=== PATIENT | female | born 1965 | race Caucasian/White ===

== ENCOUNTER 2016-11-22 16:26 | Inpatient (IN) | payer OTHER ==
[~2016-11-22] VITALS: Ht 154.9 cm; Wt 54.4 kg
--- NOTE | ~2016-11-22 | PROC NOTE ---
[place], [place] PROCEDURE NOTE NAME: PETE PASCUAL UNIT #: [id number] ROOM: 520 DOCTOR: POOJA VALDEZ MD,LUMA BIRTHDATE: [birth year] DOS: 11/23/2016 PREOPERATIVE DIAGNOSES: The patient with persistent severe nonproductive cough, wheezing and shortness of breath with exacerbation of chronic obstructive pulmonary disease, maximum medical therapy. POSTOPERATIVE DIAGNOSES: Severe tracheobronchitis for the patient noted with findings of very severe impaction of the mucus plugs for patient in endobronchial tree subsegments bilaterally. PROCEDURE DESCRIPTION: Informed consent obtained for the patient. The patient brought to the OR and placed in supine position. Conscious sedation administered by the Anesthesia Department. After achieving appropriate sedation, airway introduced into the mouth. Bronchoscope advanced into the airway into laryngeal area. Epiglottis and vocal cords were seen. Bronchoscope advanced to the vocal cord and tracheal lumen. Tracheal lumen was identified and noted with moderate amount of very thick yellowish mucus of the patient with small purulent secretions, suctioned out to the kacey level. The patient noted with thick mucus plugs for patient of similar consistency patient noted in the tracheal lumen, the patient in right upper, right middle, right lower, left upper, left lingula and lower lobe bronchi. All secretions suctioned out clear with the help of normal saline wash and sent for culture. Procedure was tolerated by the patient without any complications. Postoperative findings will be discussed with the patient once the patient recovers the effects of acute sedation. LUMA PATTON MD CM:PROCNOTE:PROCEDURE NOTE [id number] LUMA VALDEZ MD
--- NOTE | ~2016-11-22 | CON ---
[place], [place] REPORT OF CONSULTATION NAME: [id number] UNIT #: [id number] ROOM: 520 DOCTOR: AGUS ZHOU ED.D (ANNALISA) BIRTHDATE: [birth year] DOS: 11/23/2016 HISTORY OF PRESENT ILLNESS: The patient is a 51-year-old female referred by the hospitalist for an evaluation of her depression. At the present time, this patient is on the 5th floor at [facility]. She states that she is , having in 2012, and she does have 1 son. She is presently employed at the [employer] in [place], [place]. She does follow at the [facility] in [place], [place], and also with Dr. Gonsales. MEDICAL HISTORY: Pertinent for COPD, hypertension, and depression. HOME MEDICATIONS: Include Zyrtec, Avidoxy, Advair, Claritin, Ativan, Singulair, prednisone, and Spiriva. SOCIAL HISTORY: She does admit to smoking one-half to one pack of cigarettes each day. Otherwise, she has no significant substance abuse issues. She was awake, alert and oriented in all 3 spheres, but appeared to be quite depressed. She states she have been very depressed since the of her brother following the complications most likely of liver disease from his alcoholism. She is also depressed about her divorce and her mother having . I suggested she consider antidepressant medications, but she refused stating that she would rather just go to a counselor. They do have a counselor at the [facility] in [place] and she will follow up there once she is discharged. DIAGNOSIS: Major depressive disorder. RECOMMENDATIONS: The patient to follow up at [facility] for outpatient counseling. Thank you very much for this consult. AGUS ZHOU ED.D CM:CONSTR:REPORT OF CONSULTATION 1004 11/23/16 1424 interface
--- NOTE | ~2016-11-22 | CON ---
[place], [place] REPORT OF CONSULTATION NAME: PETE PASCUAL [facility] #: [id number] UNIT #: [id number] ROOM: 520 DOCTOR: LUMA HER MD BIRTHDATE: [birth year] DOS: 11/23/2016 PULMONARY CONSULTATION EVALUATION AND MANAGEMENT REASON FOR CONSULTATION: For assessment of ongoing symptoms of shortness of breath and others. HISTORY OF PRESENT ILLNESS: This is a 51-year-old female, well known to me with past history of severe COPD. The patient with recurrent frequent exacerbation of chronic nicotine dependence. The patient presented to the office yesterday as the patient has reported significant increased symptoms of shortness of breath with chest congestion, tightness in the chest and wheezing. She was also noted with general weakness and fatigue. She was also noted with exertional hypoxia in the office with oxygen saturation of 84%-86%. Upon arrival in the Emergency Room and resting improved only to 91% saturation of oxygen. She has been started with acute exacerbation of COPD in 09/2016, which has been treated with corticosteroids. Later on, she has been seen several times by the primary care physician and started on high dose of prednisone up to 60 mg for several days, then 40, 30 and 20 mg. She was seen again by the primary care physician and was recommended to use the prednisone as 40 mg daily. The patient stated that she has not been responding to the treatment and noted with continued persistent respiratory symptoms with increased worsening recently as well. The cough has been described moderate to severe, nonproductive. The wheezing of the patient is occurring with minimal exertion and at rest as well. REVIEW OF SYSTEMS: CONSTITUTIONAL: She does complain of symptoms of fatigue and tiredness which is noted without any symptoms of fever or chills. EYES: Denies any burning, redness, or tenderness. EARS, NOSE, THROAT SYMPTOMS: No sore throat, hoarseness, or otalgia, postnasal drainage. CARDIOVASCULAR: Denies anginal pain, edema or pain of the lower extremities. GASTROINTESTINAL: Denies dysphagia, nausea, vomiting, diarrhea, abdominal pain, hematemesis, melena, or hematochezia. SKIN: No lesions or rashes. GENITOURINARY: Denies dysuria, suprapubic pain, or hematuria. CENTRAL NERVOUS SYSTEM: Denies dizziness, headache or diplopia. Remaining systems were reviewed with the patient, they were noted all negative. PAST MEDICAL HISTORY: Noted: 1. Severe centrilobular emphysema. 2. Allergic rhinitis. 3. Essential hypertension. 4. History of general anxiety and depression. PAST SURGICAL HISTORY: 1. . 2. Rhinoplasty. 3. Fiberoptic bronchoscopy in 2013. [place], [place] REPORT OF CONSULTATION NAME: PETE PASCUAL UNIT #: [id number] ROOM: [facility] DOCTOR: LUMA HER MD BIRTHDATE: [birth year] SOCIAL HISTORY: The patient is , has 1 child. She lives at home. Denies history of alcohol or illicit drug use. Tobacco use was noted 16 years old between half to a pack of cigarettes per day active use. There was no history of occupation related pulmonary exposure. FAMILY HISTORY: Father at the age of 65 years complication of COPD. Mother at the age of 70+ years, complication related to the congestive heart failure. HOME MEDICATIONS: For the patient which has been used were noted as: 1. Recent use of prednisone 40 mg daily. 2. Singulair 10 mg daily. 3. Spiriva 18 mcg inhalation daily. 4. Advair 250/50 one inhalation daily. 5. ProAir HFA inhaler p.r.n. use. 6. Hydroxyzine 25 mg t.i.d. p.r.n. for itching. 7. Previous use of the Norvasc as well, which has been discontinued by the primary care physician recently. DRUG ALLERGIES: Noted: 1. AMOXICILLIN. 2. AZITHROMYCIN. 3. BACTRIM. 4. SYMBICORT. 5. FORADIL. PHYSICAL EXAMINATION: GENERAL: This is a 51-year-old white female who has been currently noted sitting on the bed without any acute distress. Height of the patient recorded 5 feet 1 inch, weight of 120 pounds, BMI 22.6. VITAL SIGNS: Shows temperature of the patient was noted as normal. The respiratory rate of the patient recorded as 20-22, heart rate noted 130 with sinus tachycardia in the office and this morning noted 93 beats per minute. Blood pressure noted elevated yesterday at 170/98, this morning noted 152/88. Intake for this patient 240 mL, output 700 mL in the last 24 hours. Pulse oxygen saturation on 2 liters nasal cannula 94% saturation. HEENT: Head was atraumatic. Eyes nonicterus. NECK: Supple. CARDIOVASCULAR: S1, S2 audible. LUNGS: The patient was noted without any crackles. Diffuse expiratory wheezing noted with reduced breath sounds bilaterally. ABDOMEN: Soft, nontender, bowel sounds present. CENTRAL NERVOUS SYSTEM: For the patient was noted cranial nerves 2-12 intact. No focal deficits. MUSCULOSKELETAL: Does not show any acute deformities. LABORATORY DATA: Lactic acid yesterday was noted normal on admission. CBC of the patient was noted as WBC count normal, hemoglobin 15.8, hematocrit 47.1, platelet count was normal. PT/PTT of patient was noted as normal yesterday. [place], [place] REPORT OF CONSULTATION NAME: PETE PASCUAL UNIT #: [id number] ROOM: [facility] DOCTOR: LUMA HER MD BIRTHDATE: [birth year] CMP that was done yesterday was noted as normal CMP for this patient. Chest x-ray of the patient was noted with hyperinflation changes without any acute pulmonary infiltration or other abnormalities 1 view as well. The troponin for the patient was noted normal yesterday and this morning. BMP this morning was noted as normal today. CBC this morning still noted as normal. IMPRESSION: 1. The patient who has been currently admitted to the hospital noted with acute hypoxic respiratory failure with failed outpatient treatment, progressive worsening of the acute exacerbation of chronic obstructive pulmonary disease, treated with antibiotics, bronchodilators and steroids for the last several weeks. 2. History of allergic rhinitis. 3. Uncontrolled hypertension. The patient has been taken off the hypertension medications by the primary care attending recently. 4. Tachycardia secondary to acute exacerbation of chronic obstructive pulmonary disease for this patient has been noted with gradual reduction in the last 24 hours. 5. Uncontrolled hypertension was still noted persistent. 6. History of chronic nicotine dependence and noncompliance as well. 7. Suspected mucous impaction of the major airways of the patient which has been also resulting in nonresolution of the current acute symptoms. PLAN OF TREATMENT: The patient will be started on the Norvasc 5 mg again from today. Continue her previous home medications as taken for this patient. She was started on Solu-Medrol 60 mg every 8 hours that will be continued. The DuoNeb has been ordered. Antibiotics, Levaquin should suffice. Bronchoscopy was planned for the patient to be done in the morning. Ordered the nicotine replacement patches as well for this patient to overcome the nicotine withdrawal as well. Anxiolytics for the patient will be used as well. Other supportive therapy, plan of management to be done for this patient as well. Further changes and modification treatment done based on progression of the illness. All other supportive plan and management and care. Usual medical management and plan of therapy. The risks and benefits of bronchoscopy were discussed with the patient in detail and she was agreeable for the procedure. Thanks for allowing me to participate in the care of this patient. LUMA PATTON MD CM:CONSTR:REPORT OF CONSULTATION 1142 11/24/16 0021 interface
--- NOTE | ~2016-11-22 | PR ---
[place], [place] PROGRESS NOTE NAME: PETE PASCUAL UNIT #: [id number] ROOM: [facility] DOCTOR: POOJA VALDEZ MD,LUMA BIRTHDATE: [birth year] DOS: 11/23/2016 SUBJECTIVE: She was ____ DICTATION ENDED ABRUPTLY LUMA PATTON MD CM:PNTRANS [id number] LUMA VALDEZ MD 11/23/16 1151 interface
--- NOTE | ~2016-11-22 | PR ---
[place], [place] PROGRESS NOTE [id number] UNIT #: [id number] ROOM: 520 DOCTOR: POOJA VALDEZ MD,LUMA BIRTHDATE: [birth year] DOS: 11/26/2016 SUBJECTIVE: The patient was seen and examined on 11/26/2016. Shortness of breath of the patient has been improving. Coughing has been noted with the sputum expectoration. Denies symptoms of chest pain. Shortness of breath and wheezing was decreasing. The tachycardia was also resolving. OBJECTIVE: VITAL SIGNS: Normal temperature, respiratory rate 20, heart rate 110, blood pressure 150/84, 164/91. Pulse oxygen saturation noted as 92% for this patient on 2 L nasal cannula. HEENT: Examination shows no new change. NECK: Supple. CARDIOVASCULAR: S1, S2 is audible. LUNGS: Noted with decreased breath sounds noted in the lungs bilaterally. The wheezing for this patient was present still at the present time but gradual reduction has been noted. IMPRESSION: 1. Anxiety disorder. 2. Resolving tachycardia gradually as the improvement noted in the respiratory status. 3. The patient with essential hypertension for the patient, which has also noted partially uncontrolled. PLAN OF TREATMENT: Continuation of the oxygen supplementation, bronchodilators. Changing the Norvasc to 10 mg daily dosing. Ordered the TSH level of the patient to assess for any thyroid problems resulting in tachycardia. Other supportive plan and management and care. Usual treatment. Further treatment changes will be done based on the progression of the illness. LUMA PATTON MD CM:PNTRANS [id number] [id number] LUMA VALDEZ MD 11/26/16 2353 interface
--- NOTE | ~2016-11-22 | PR ---
[place], [place] PROGRESS NOTE NAME: PETE PASCUAL UNIT #: [id number] ROOM: 520 DOCTOR: LUMA HER MD BIRTHDATE: [birth year] DOS: 11/24/2016 SUBJECTIVE: The patient has been noted n.p.o. past midnight. Bronchoscopy planned for today. The patient denies symptoms of chest pain, coughing, wheezing. The patient remains about the same. Shortness of breath on the patient was noted partially decreased. There were symptoms of abdominal pain. OBJECTIVE: VITAL SIGNS: For the patient, which has been recorded showed the temperature for the patient recorded as normal, respiratory 20, heart rate 103, blood pressure is 141/93 and 131/85. HEENT: Examination shows no new change. NECK: Supple. CARDIOVASCULAR SYSTEM: S1, S2 audible. LUNGS: Noted without any crackles. Expiratory wheezing noted diffusely in the lungs. ABDOMEN: Soft, nontender. LABORATORY DATA: Blood culture from the this month shows no bacterial growth. IMPRESSION: 1. Persistent acute exacerbation of chronic obstructive pulmonary disease, acute tracheobronchitis, history of allergic rhinitis, essential hypertension, which the patient also noted is uncontrolled for the patient, currently improving. 2. Sinus tachycardia has been noted intermittently secondary to underlying chronic obstructive pulmonary disease exacerbation. 3. History of nicotine dependence. PLAN OF TREATMENT: Continuation of the current plan of management at this time. Proceed with bronchoscopy. The patient had bronchoscopy for any changes in the treatment and will be ordered accordingly. In the meantime, other previous treatment to be continued. Usual care. Other supportive plan of therapy and management. [place], [place] PROGRESS NOTE NAME: PETE PASCUAL UNIT #: [id number] ROOM: 520 DOCTOR: LUMA HER MD BIRTHDATE: [birth year] LUMA PATTON MD CM:PNTRANS 0939 1002 LUMA VALDEZ MD 11/24/16 1002 interface
--- NOTE | ~2016-11-22 | PR ---
[place], [place] PROGRESS NOTE NAME: PETE PASCUAL UNIT #: [id number] ROOM: 520 DOCTOR: LUMA HER MD BIRTHDATE: [birth year] DOS: 11/25/2016 SUBJECTIVE: Bronchoscopy done yesterday of the patient with reduction in symptoms of coughing and wheezing. She was still noted symptoms of wheezing. The patient has chest tightness. She denies symptoms of chest pain. She has been noted quite shortness of breath. The patient with mild exertion still at this time. The tachycardia of the patient has been improving gradually. OBJECTIVE: VITAL SIGNS: Normal temperature, respiratory rate 20, heart rate of 110-96, blood pressure 105/88-140/90. Pulse oxygen saturation of the patient recorded on 3 liter nasal cannula 93% saturation. HEENT: Showed no new change. NECK: Supple. CARDIOVASCULAR: S1, S2 audible. LUNGS: The patient was noted general reduction in the breath sounds in the lungs bilaterally. Wheezing was present. The wheezing was noted decreased from previous examination. ABDOMEN: Soft, nontender. LABORATORY DATA: CBC of the patient this morning on 11/25/2016, WBC count 12.3, hemoglobin and hematocrit normal, platelet count were normal. CMP of the patient this morning noted normal BUN and creatinine of the patient, carbon dioxide 37. The Gram stain of the bronchial washings yesterday shows many white blood cells with moderate epithelial cells, few Gram-positive cocci in pairs ____ Gram-positive bacilli, normal ____. Culture results were pending. IMPRESSION: The patient with acute exacerbation of chronic obstructive pulmonary disease, acute tracheobronchitis, resolving tachycardia ____ exacerbation of chronic obstructive pulmonary disease gradually improving, uncontrolled hypertension as well. Respiratory symptom has been noted gradual reduction. PLAN OF TREATMENT: Continuation of current dose of corticosteroids, bronchodilators, oxygen supplementation, reduction of the corticosteroids will be started from tomorrow morning. Other supportive plan and management to be continued. Usual care. [place], [place] PROGRESS NOTE NAME: PETE PASCUAL UNIT #: [id number] ROOM: 520 DOCTOR: LUMA HER MD BIRTHDATE: [birth year] LUMA PATTON MD CM:PNTRANS [id number] LUMA VALDEZ MD 11/27/16 0114 interface
--- NOTE | ~2016-11-22 | PR ---
[place], [place] PROGRESS NOTE [id number] UNIT #: [id number] ROOM: 520 DOCTOR: POOJA VALDEZ MD,LUMA BIRTHDATE: [birth year] DOS: 11/27/2016 PULMONARY FOLLOWUP NOTE SUBJECTIVE: The patient today's assessment is 11/27/2016. She has been noted without any acute distress at this time. The coughing has been subsiding. Shortness of breath and wheezing was also resolving. There were no symptoms of chest pain. The tachycardia was also improving gradually. OBJECTIVE: VITAL SIGNS: Normal temperature, respiratory rate 20, heart rate 103, blood pressure 152/90. Intake of the patient was 1700, output 2250 mL. Pulse oxygen saturation on room air 92% saturation. HEENT: Examination shows no new change. NECK: Supple. CARDIOVASCULAR: S1, S2 audible. LUNGS: Scattered wheezing, no crackles. ABDOMEN: Soft, nontender. LABORATORY DATA: BMP, carbon dioxide 36. Remaining BMP is grossly normal. CBC of the patient noted as normal. IMPRESSION: 1. Gradual reduction and resolution of acute exacerbation of chronic obstructive pulmonary disease, acute tracheobronchitis as well as acute hypoxic respiratory failure as well. 2. History of nicotine dependence. 3. Improving essential hypertension. PLAN OF TREATMENT: No changes in the plan of management at this time. Continue current therapy plan and management. Other usual care and plan of therapies. Usual medical management. LUMA PATTON MD CM:PNTRANS [id number] 1412 LUMA VALDEZ MD 11/27/16 2106 interface
[~2016-11-22 16:26] MED LIST: ADVAIR 250/501 EA INH; AMLODIPINE10 MG PO; ATIVAN0.5 MG PO; AVIDOXY100 MG PO; CHANTIX; CLARITIN-D 10 M1 T21; DELTASONE10 MG PO; DOXYCYCLINE100 M3 PO; HYDR12.5C PO; LEVOFLOXACIN500 MG PO; MEDROL DOSEPAK4 MG PO; NICODERM21 MG/24 H TD; ORASONE PO; ORASONE10 MG PO; SINGULAIR10 MG; SPIRIVA18 MCG INH
[2016-11-22 17:00] VITALS: BP 170/98
[2016-11-22] MEDS ORDERED: PREDNISONE10 MG PO (17:24)
[2016-11-22] MEDS ORDERED: CLARITIN10 MG PO (17:25)
[2016-11-22] MEDS ORDERED: ATIVAN0.5 MG PO (17:26)
[2016-11-22] MEDS ORDERED: ZYRTEC10 MG PO (17:26)
[2016-11-22 19:41] LABS: BASO % 0.3 % (0.0-1.0); EOS % 0.1 % (1.0-4.0); HEMATOCRIT 47.1 % (37.0-47.0); HEMOGLOBIN 15.8 g/dl (12.0-16.0); LYMPH % 22.1 % (27.0-41.0); MEAN CELL VOLUME 90.1 fl (81.0-99.0); MEAN CORPUSCULAR HGB 30.2 pg (27.0-31.0); MEAN CORPUSCULAR HGB CONC 33.5 g/dl (33.0-37.0); MEAN PLATELET VOLUME 10.7 fl (9.6-12.3); MONO # 1.1 10*3/uL (0.1-1.0); MONO % 12.2 % (3.0-9.0); NEUT # 5.7 10*3/uL (2.3-7.9); PLATELET COUNT AUTOMATED 231 10*3/uL (130-400); RED BLOOD COUNT 5.23 10*6/uL (4.10-5.10); RED CELL DISTRI WIDTH 13.6 % (0-14.5); WHITE BLOOD COUNT 8.8 10*3/uL (4.8-10.8)
[2016-11-22 19:56] LABS: INTERNATIONAL NORM RATIO 0.9 (2.0-3.5)
[2016-11-22 20:00] VITALS: BP 155/80; BP 169/98
[2016-11-22 20:03] LABS: ALBUMIN 3.9 gm/dl (3.1-4.5); ALKALINE PHOSPHATASE 60 U/L (45-117); BILIRUBIN, TOTAL 0.4 mg/dl (0.2-1.0); BUN 7 mg/dl (7-24); CARBON DIOXIDE 31 mmol/L (21-32); CHLORIDE 105 mmol/L (98-107); EST GLOM FILT AFRICAN AMERICAN > 60 ml/min; GLUCOSE 91 mg/dL (65-99); MAGNESIUM 2.3 mg/dL (1.5-2.1); PHOSPHOROUS 3.4 mg/dL (2.5-4.9); POTASSIUM 3.9 mmol/L (3.5-5.1); SGOT/AST 10 IU/L (3-35); SGPT/ALT 24 U/L (12-78); SODIUM 145 mmol/L (136-145); TOTAL PROTEIN 7.2 gm/dL (6.4-8.2)
[2016-11-22 20:07] LABS: TROPONIN I < 0.015 ng/ml (<0.045)
[2016-11-23] VITALS: BP 145/86
[2016-11-23 04:00] VITALS: BP 149/87
[2016-11-23 05:55] LABS: BUN 11 mg/dl (7-24); CARBON DIOXIDE 31 mmol/L (21-32); CHLORIDE 106 mmol/L (98-107); CHOLESTEROL 176 mg/dL (<200); EST GLOM FILT AFRICAN AMERICAN > 60 ml/min; GLUCOSE 113 mg/dL (65-99); HDL CHOLESTEROL 109 mg/dl (40-60); LDL CHOLESTEROL 57 mg/dL (9-159); POTASSIUM 4.5 mmol/L (3.5-5.1); SODIUM 144 mmol/L (136-145); TRIGLYCERIDES 51 mg/dl (<150); VLDL CHOLESTEROL 10 mg/dL (6-40)
[2016-11-23 05:57] LABS: TROPONIN I < 0.015 ng/ml (<0.045)
[2016-11-23 06:01] LABS: HEMOGLOBIN A1c 5.8 % (4.8-5.6)
[2016-11-23 06:18] LABS: BASO % 0.2 % (0.0-1.0); HEMATOCRIT 45.3 % (37.0-47.0); HEMOGLOBIN 14.4 g/dl (12.0-16.0); IG # 0.1 10*3/uL (0.0-0.1); LYMPH # 0.5 10*3/uL (1.3-4.4); MEAN CELL VOLUME 92.8 fl (81.0-99.0); MEAN CORPUSCULAR HGB 29.5 pg (27.0-31.0); MEAN CORPUSCULAR HGB CONC 31.8 g/dl (33.0-37.0); MEAN PLATELET VOLUME 10.5 fl (9.6-12.3); MONO # 0.3 10*3/uL (0.1-1.0); MONO % 4.2 % (3.0-9.0); NEUT # 5.8 10*3/uL (2.3-7.9); NEUT % 86.8 % (47.0-73.0); PLATELET COUNT AUTOMATED 207 10*3/uL (130-400); RED BLOOD COUNT 4.88 10*6/uL (4.10-5.10); RED CELL DISTRI WIDTH 13.5 % (0-14.5); WHITE BLOOD COUNT 6.6 10*3/uL (4.8-10.8)
[2016-11-23 06:52] LABS: FOLIC ACID 18.81 ng/mL (>5.38); VITAMIN D, 25-HYDROXY 10.1 ng/mL (30-100)
[2016-11-23 08:00] VITALS: BP 152/88
[2016-11-23 12:00] VITALS: BP 153/84
[2016-11-23 16:00] VITALS: BP 132/88
[2016-11-23 20:00] VITALS: BP 150/98
[2016-11-24] VITALS (13 sets, daily range): BP systolic 114–194; BP diastolic 78–118
[2016-11-25] VITALS: BP 140/90
[2016-11-25 07:19] LABS: BASO % 0.1 % (0.0-1.0); HEMATOCRIT 42.6 % (37.0-47.0); HEMOGLOBIN 14.3 g/dl (12.0-16.0); IG # 0.1 10*3/uL (0.0-0.1); LYMPH % 8.1 % (27.0-41.0); MEAN CELL VOLUME 89.7 fl (81.0-99.0); MEAN CORPUSCULAR HGB 30.1 pg (27.0-31.0); MEAN CORPUSCULAR HGB CONC 33.6 g/dl (33.0-37.0); MEAN PLATELET VOLUME 10.1 fl (9.6-12.3); MONO # 0.4 10*3/uL (0.1-1.0); MONO % 3.3 % (3.0-9.0); NEUT # 10.8 10*3/uL (2.3-7.9); NEUT % 87.8 % (47.0-73.0); PLATELET COUNT AUTOMATED 205 10*3/uL (130-400); RED BLOOD COUNT 4.75 10*6/uL (4.10-5.10); RED CELL DISTRI WIDTH 13.2 % (0-14.5); WHITE BLOOD COUNT 12.3 10*3/uL (4.8-10.8)
[2016-11-25 07:47] LABS: ALBUMIN 3.4 gm/dl (3.1-4.5); ALKALINE PHOSPHATASE 47 U/L (45-117); BILIRUBIN, TOTAL 0.4 mg/dl (0.2-1.0); BUN 17 mg/dl (7-24); CARBON DIOXIDE 37 mmol/L (21-32); CHLORIDE 101 mmol/L (98-107); EST GLOM FILT AFRICAN AMERICAN > 60 ml/min; GLUCOSE 117 mg/dL (65-99); POTASSIUM 4.2 mmol/L (3.5-5.1); SGOT/AST 8 IU/L (3-35); SGPT/ALT 24 U/L (12-78); SODIUM 144 mmol/L (136-145)
[2016-11-25 08:00] VITALS: BP 150/88
[2016-11-25 12:00] VITALS: BP 148/96
[2016-11-25 12:09] LABS: ACID FAST SPEC PROCESSING Concentration (.)
[2016-11-25 14:00] VITALS: BP 148/96
[2016-11-25 20:00] VITALS: BP 162/94
[2016-11-26] VITALS: BP 152/88
[2016-11-26 06:15] LABS: HEMATOCRIT 41.9 % (37.0-47.0); HEMOGLOBIN 14.3 g/dl (12.0-16.0); IG # 0.1 10*3/uL (0.0-0.1); LYMPH % 10.6 % (27.0-41.0); MEAN CELL VOLUME 90.1 fl (81.0-99.0); MEAN CORPUSCULAR HGB 30.8 pg (27.0-31.0); MEAN CORPUSCULAR HGB CONC 34.1 g/dl (33.0-37.0); MEAN PLATELET VOLUME 10.1 fl (9.6-12.3); MONO # 0.4 10*3/uL (0.1-1.0); MONO % 4.5 % (3.0-9.0); NEUT # 7.6 10*3/uL (2.3-7.9); NEUT % 84.2 % (47.0-73.0); PLATELET COUNT AUTOMATED 189 10*3/uL (130-400); RED BLOOD COUNT 4.65 10*6/uL (4.10-5.10); RED CELL DISTRI WIDTH 13.2 % (0-14.5)
[2016-11-26 06:39] LABS: BUN 19 mg/dl (7-24); CARBON DIOXIDE 37 mmol/L (21-32); CHLORIDE 100 mmol/L (98-107); EST GLOM FILT AFRICAN AMERICAN > 60 ml/min; GLUCOSE 115 mg/dL (65-99); POTASSIUM 4.2 mmol/L (3.5-5.1); SODIUM 143 mmol/L (136-145)
[2016-11-26 08:00] VITALS: BP 164/91
[2016-11-26 12:00] VITALS: BP 150/84
[2016-11-26 16:00] VITALS: BP 152/90
[2016-11-26 20:00] VITALS: BP 152/84
[2016-11-27] VITALS: BP 152/88
[2016-11-27 06:27] LABS: BASO % 0.1 % (0.0-1.0); HEMOGLOBIN 14.3 g/dl (12.0-16.0); IG # 0.1 10*3/uL (0.0-0.1); LYMPH % 10.2 % (27.0-41.0); MEAN CELL VOLUME 91.3 fl (81.0-99.0); MEAN CORPUSCULAR HGB 30.4 pg (27.0-31.0); MEAN CORPUSCULAR HGB CONC 33.3 g/dl (33.0-37.0); MEAN PLATELET VOLUME 10.4 fl (9.6-12.3); MONO # 0.6 10*3/uL (0.1-1.0); MONO % 6.1 % (3.0-9.0); NEUT # 7.8 10*3/uL (2.3-7.9); PLATELET COUNT AUTOMATED 201 10*3/uL (130-400); RED BLOOD COUNT 4.71 10*6/uL (4.10-5.10); RED CELL DISTRI WIDTH 12.8 % (0-14.5); WHITE BLOOD COUNT 9.4 10*3/uL (4.8-10.8)
[2016-11-27 06:58] LABS: BUN 17 mg/dl (7-24); CARBON DIOXIDE 36 mmol/L (21-32); CHLORIDE 101 mmol/L (98-107); EST GLOM FILT AFRICAN AMERICAN > 60 ml/min; GLUCOSE 121 mg/dL (65-99); POTASSIUM 4.1 mmol/L (3.5-5.1); SODIUM 143 mmol/L (136-145)
[2016-11-27 07:04] LABS: THYROID STIM HORMONE (HS) 0.922 uIU/ml (0.358-4.75)
[2016-11-27 08:00] VITALS: BP 152/90
[2016-11-27] MEDS ORDERED: LEVAQUIN500 M2 PO (10:32)
[2016-11-27] MEDS ORDERED: D-1000 185 MG-11 TAB PO (10:32)
== END 2016-11-27 14:24 | disposition home or self-care (01) | DRG 871 ==
LOC: 5E 16:26
PROVIDERS: Hospitalist; Internal Medicine; Internal Medicine Critical Care Medicine
PROC: 0BC48ZZ Extirpation of Matter from Right Upper Lobe Bronchus, Via Natural or Artificial Opening Endoscopic (ICD-10-PCS; principal; 2016-11-24)
PROC: 0BC58ZZ Extirpation of Matter from Right Middle Lobe Bronchus, Via Natural or Artificial Opening Endoscopic (ICD-10-PCS; principal; 2016-11-24)
PROC: 0BC78ZZ Extirpation of Matter from Left Main Bronchus, Via Natural or Artificial Opening Endoscopic (ICD-10-PCS; principal; 2016-11-24)
PROC: 0BC68ZZ Extirpation of Matter from Right Lower Lobe Bronchus, Via Natural or Artificial Opening Endoscopic (ICD-10-PCS; principal; 2016-11-24)
PROC: 0BCB8ZZ Extirpation of Matter from Left Lower Lobe Bronchus, Via Natural or Artificial Opening Endoscopic (ICD-10-PCS; principal; 2016-11-24)
PROC: 0BC18ZZ Extirpation of Matter from Trachea, Via Natural or Artificial Opening Endoscopic (ICD-10-PCS; principal; 2016-11-24)
PROC: 0BC38ZZ Extirpation of Matter from Right Main Bronchus, Via Natural or Artificial Opening Endoscopic (ICD-10-PCS; principal; 2016-11-24)
PROC: 0BC88ZZ Extirpation of Matter from Left Upper Lobe Bronchus, Via Natural or Artificial Opening Endoscopic (ICD-10-PCS; principal; 2016-11-24)
PROC: 0BC98ZZ Extirpation of Matter from Lingula Bronchus, Via Natural or Artificial Opening Endoscopic (ICD-10-PCS; principal; 2016-11-24)
DX: A41.9 Sepsis, unspecified organism (principal); J18.9 Pneumonia, unspecified organism; J96.01 Acute respiratory failure with hypoxia; J44.1 Chronic obstructive pulmonary disease with (acute) exacerbation; J44.0 Chronic obstructive pulmonary disease with (acute) lower respiratory infection; J20.9 Acute bronchitis, unspecified; F41.1 Generalized anxiety disorder; F32.9 Major depressive disorder, single episode, unspecified; I10 Essential (primary) hypertension; F17.200 Nicotine dependence, unspecified, uncomplicated; J30.9 Allergic rhinitis, unspecified; E55.9 Vitamin D deficiency, unspecified; Z79.84 Long term (current) use of oral hypoglycemic drugs; Z88.1 Allergy status to other antibiotic agents; Z88.8 Allergy status to other drugs, medicaments and biological substances; Z88.2 Allergy status to sulfonamides; Z83.6 Family history of other diseases of the respiratory system; Z99.81 Dependence on supplemental oxygen

== ENCOUNTER → 2016-12-04 | Outpatient (CLI) | payer OTHER ==
[~2016-12-04] MED LIST changes: +CLARITIN10 MG PO; +D-1000 185 MG-11 TAB PO; +LEVAQUIN500 M2 PO; +PREDNISONE10 MG PO; +ZYRTEC10 MG PO
== END | disposition home or self-care (01) ==
LOC: RESCLI 03:09
DX: J44.9 Chronic obstructive pulmonary disease, unspecified (principal); I10 Essential (primary) hypertension; F41.1 Generalized anxiety disorder; E55.9 Vitamin D deficiency, unspecified; J30.2 Other seasonal allergic rhinitis; Z72.0 Tobacco use; Z88.1 Allergy status to other antibiotic agents

== ENCOUNTER 2016-12-28 17:13 | Inpatient (IN) | payer OTHER ==
[~2016-12-28] VITALS: Ht 160 cm; Wt 52.7 kg
--- NOTE | ~2016-12-28 | PR ---
[place], [place] PROGRESS NOTE NAME: PETE PASCUAL UNIT #: [id number] ROOM: [facility] DOCTOR: LUMA HER MD BIRTHDATE: [birth year] DOS: 12/30/2016 SUBJECTIVE: She has been noted with reduction of respiratory complaints from yesterday. Shortness of breath, wheezing and coughing have been gradually subsiding. There were no symptoms of chest pain. Tachycardia was also noted with mild resolution. OBJECTIVE: VITAL SIGNS: Showed normal temperature, respiratory rate 20, heart rate 102-108, blood pressure 136/75. The pulse ox saturation recorded as 98% on 2 liters nasal cannula. HEENT: Examination showed no new change. NECK: Supple. CARDIOVASCULAR SYSTEM: S1, S2 audible. LUNGS: The patient was noted with moderate decreased breath sounds, partially decreased from previous examination. ABDOMEN: Soft, nontender. LABORATORY DATA: The BMP was noted essentially grossly normal. The blood culture from 12/28/2016 showed no bacterial growth. Final culture results were pending. CBC of the patient on 12/30/2016 was noted as normal. IMPRESSION: 1. Acute exacerbation of chronic obstructive pulmonary disease for this patient with acute hypoxic respiratory failure secondary to that and acute bacterial bronchitis. 2. Nicotine dependence. 3. Resolving sinus tachycardia related to the acute exacerbation of chronic obstructive pulmonary disease. PLAN FOR TREATMENT: Continuation of the bronchodilators, oxygen supplementation and other respiratory symptoms. The steroids will be continued on the same dose with the patient today and the dose will be started being reduced from tomorrow depending on further improvement in the respiratory status. [place], [place] PROGRESS NOTE NAME: PETE PASCUAL UNIT #: [id number] ROOM: [facility] DOCTOR: LUMA HER MD BIRTHDATE: [birth year] LUMA PATTON MD CM:PNTRANS 1314 0014 LUMA VALDEZ MD 01/02/17 1245 interface
--- NOTE | ~2016-12-28 | EKG ---
[place], [place] ELECTROCARDIOGRAM REPORT NAME: PETE PASCUAL UNIT #: [id number] ROOM: [facility] DOCTOR: ANISA SOTO MD BIRTHDATE: [birth year] DOS: 12/28/2016 TIME: 1915 FINDINGS: 1. Sinus tachycardia at rate 110. 2. Right atrial enlargement. 3. Poor precordial R-wave progression. 4. Borderline electrocardiogram. ANISA SOTO MD CM:EKGRPT:ELECTROCARDIOGRAM REPORT [id number] ANISA SOTO MD
--- NOTE | ~2016-12-28 | CON ---
[place], [place] REPORT OF CONSULTATION NAME: PETE PASCUAL [facility] #: [id number] UNIT #: [id number] ROOM: 519 DOCTOR: LUMA HER MD BIRTHDATE: [birth year] DOS: 12/29/2016 PULMONARY CONSULTATION EVALUATION AND MANAGEMENT REASON FOR CONSULTATION: Assess the patient for acute ongoing respiratory symptoms with acute respiratory failure. HISTORY OF PRESENT ILLNESS: A 51-year-old white female seen in my office yesterday because of failed outpatient treatment for acute exacerbation of COPD also noted with acute hypoxic respiratory failure for this patient with acute ongoing severe exacerbation of COPD and sinus tachycardia. The patient has been advised for hospitalization and admitted under the hospitalist service of the patient Dr. Street yesterday. The patient has been admitted to the hospital, currently being treated for acute exacerbation of COPD and acute tracheobronchitis at the present time. The patient stated the symptoms of wheezing for the patient was still noted with the shortness of breath. The patient denies any symptoms of pain in the chest. Some tightness in the chest the patient was still described. The coughing had been noted moderate to severely without any sputum expectoration. Partial reduction of the tachycardia was also noted. There were no symptoms of hemoptysis. REVIEW OF SYSTEMS: CONSTITUTIONAL SYMPTOMS: Fatigue and tiredness noted without any fever or chills. EYES: Denies any burning, redness, or tenderness. EAR, NOSE, THROAT SYMPTOMS: sore throat, hoarseness, otalgia, postnasal drainage. CARDIOVASCULAR SYSTEM: Denies anginal pain, edema of the lower extremities or palpitations. GASTROINTESTINAL SYMPTOMS: Denies dysphagia, nausea, vomiting, diarrhea, abdominal pain, hematemesis, melena. GENITOURINARY SYMPTOMS: Denies dysuria, suprapubic pain, hematuria. SKIN: No lesions or rashes or ulceration. CENTRAL NERVOUS SYSTEM: Denies dizziness, headache, diplopia, syncopal episodes or tingling sensation of the extremities. MUSCULOSKELETAL SYMPTOMS: Denies acute joint pain, redness, or tenderness. Remaining systems were reviewed. They were noted all negative. PAST MEDICAL HISTORY: Was noted with, 1. End-stage centrilobular emphysema. 2. History of allergic rhinitis. 3. Generalized anxiety disorder. 4. Essential hypertension. PAST SURGICAL HISTORY: 1. . 2. Rhinoplasty. 3. Fiberoptic bronchoscopy. Last bronchoscopy done for the patient during her last admission in November 2016 for this patient. [place], [place] REPORT OF CONSULTATION NAME: PETE PASCUAL UNIT #: [id number] ROOM: [facility] DOCTOR: POOJA VALDEZ MD,LUMA BIRTHDATE: [birth year] SOCIAL HISTORY: The patient , has one child. Lives at home. Tobacco use noted 16 years old, about half a pack of cigarettes per day, still noted use actively by the patient. There was no history of illicit drug use or any occupation related pulmonary exposure. FAMILY HISTORY: Father age of 6565 years old, complication of COPD. Mother at the age of 70+ years old, complications of congestive heart failure. HOME MEDICATIONS: 1. Noted as use of Singulair, Norvasc 5 mg daily, Spiriva 18 mcg inhalation daily, Advair 250/50 one puff b.i.d. 2. ProAir HFA inhaler. 3. Hydroxyzine 25 mg p.o. t.i.d. p.r.n. for itching. DRUG ALLERGY HISTORY: NOTED ALLERGY TO: 1. AMOXICILLIN. 2. AZITHROMYCIN. 3. BACTRIM. 4. SYMBICORT. PHYSICAL EXAMINATION: GENERAL: A 51 years old female who has been noted currently awake and alert without any distress. The patient's height was recorded, the patient with a height of 5 feet 11 inches, weight of 116 pounds, BMI 16.2 VITAL SIGNS: Normal temperature, respiratory rate 16-20, heart rate of 123 on admission, currently noted as 100 beats per minute. Blood pressure ranged between 130/92 on admission, currently noted 146/80. The pulse oxygen saturation of the patient recorded 80% in the office currently noted on 3 L nasal cannula 95% saturation. HEENT: Head was atraumatic. Eyes nonicterus. NECK: Supple. CARDIOVASCULAR SYSTEM: S1, S2 audible. LUNGS: The patient noted diffuse expiratory wheezing with moderate reduction of breath sounds bilaterally. ABDOMEN: Flat, soft, nontender. Bowel sounds present. CENTRAL NERVOUS SYSTEM: The patient without any focal deficit. EXTREMITIES: Showed no edema, clubbing or cyanosis. LABORATORY DATA: CBC of the patient on 12/28/2016 was noted essentially normal. CMP of the patient on 12/28/2016 on admission, normal BUN and creatinine, remaining CMP was normal. Troponin for the patient was noted as normal. 12/28/2016, lactic acid 1.3. 12/28/2016, chest x-ray of the patient hyperinflation changes of COPD. Repeat CK-MB troponin noted mild elevation of her CK-MB 4.2 for this patient 4.3 with normal CPK-MB and troponin for the patient this morning. The CMP of the patient were noted as normal BUN and creatinine. The total protein was noted mildly decreased at 5.8. Remaining electrolytes were normal. The PT and PTT for this patient were noted as normal. EKG was noted with a sinus tachycardia. PT/PTT were noted as normal today. The patient had a CTA of the chest, which was ordered by the primary care [place], [place] REPORT OF CONSULTATION NAME: PETE PASCUAL UNIT #: [id number] ROOM: [facility] DOCTOR: LUMA HER MD BIRTHDATE: [birth year] attending for this patient does not show any evidence of pulmonary embolism for the patient or any lymphadenopathy. Diffuse severe advanced emphysematous changes in the lungs were noted bilaterally. IMPRESSION: 1. The patient who had been currently admitted to the hospital noted with severe acute exacerbation of chronic obstructive pulmonary disease with acute hypoxic respiratory failure as a result of acute tracheobronchitis bacterial in origin with failed outpatient treatment. The patient has used the antibiotics for this patient orally for 24 hours as well as the steroids for the patient orally 24 hour prior to admission to the hospital. 2. Chronic nicotine dependence. 3. History of allergic rhinitis. PLAN OF TREATMENT: The patient has been started on IV Solu-Medrol. Home medications have been reviewed and resumed. The doxycycline for the patient has been ordered intravenously as well as IV Rocephin. Steroids will be given for the patient 40 mg q. 6 hours. The dose will be gradually reduced based on the improvement in the symptoms. Collect any sputum for Gram stain, culture, Mucinex was also ordered. For the respiratory failure management, the oxygen supplementation will be continued nasal cannula for this patient at this time. The patient does have signs of respiratory distress, would not require use of the BiPAP or additional support to manage the acute hypoxic respiratory failure. However, in case of changes in the respiratory status of the patient additional management will be ordered accordingly. Thanks for allowing me to participate in the care of this patient. LUMA PATTON MD CM:CONSTR:REPORT OF CONSULTATION 1155 12/30/16 0644 interface
--- NOTE | ~2016-12-28 | PR ---
[place], [place] PROGRESS NOTE NAME: PETE PASCUAL UNIT #: [id number] ROOM: 519 DOCTOR: POOJA VALDEZ MD,LUMA BIRTHDATE: [birth year] DOS: 01/02/2017 PULMONARY PROGRESS NOTE SUBJECTIVE: She has been doing very well at this time. PICC line was inserted yesterday. Medication authorization for the patient outpatient intravenous therapy for the patient was noted in progress. She has not been noted symptoms of chest pain or any abdominal pain. The coughing and shortness of breath continued to resolve progressively. OBJECTIVE: VITAL SIGNS: Normal temperature, respiratory rate 18, heart rate 102, blood pressure 124/72. Pulse oxygen saturation of the patient recorded as 91% to 94% saturation. HEENT: Examination shows head was atraumatic. Eyes nonicterus. NECK: Supple. CARDIOVASCULAR: S1, S2 is audible. LUNGS: The patient was noted without any wheezing or crackles at this time. ABDOMEN: Soft and nontender. IMPRESSION: The patient with gradual resolution and improvement noted on acute hypoxic respiratory failure with gradual reduction of the acute exacerbation of COPD as well. PLAN OF TREATMENT: Discharge planning for the patient has been already made for this patient. Awaiting insurance authorization. Home oxygen assessment for the patient needs to be done prior to the discharge from the hospital as well. Outpatient followup will be done for the patient post-discharge in about a week. LUMA PATTON MD CM:PNTRANS [id number] LUMA VALDEZ MD 01/03/17 0413 interface
--- NOTE | ~2016-12-28 | PR ---
[place], [place] PROGRESS NOTE NAME: PETE PASCUAL UNIT #: [id number] ROOM: 519 DOCTOR: LUMA HER MD BIRTHDATE: [birth year] DOS: 12/31/2016 SUBJECTIVE: She has been noted reduction in symptoms of cough, which was still noted episodic. The intensity and the frequency has been decreasing. The wheezing and shortness of breath, was also gradually improving. Denies any symptoms of chest pain. OBJECTIVE: VITAL SIGNS: The patient showed normal temperature, respiratory rate 22, heart rate 119-92, blood pressure 145/80-139/90. HEENT: Showed no new change. NECK: Supple. CARDIOVASCULAR: S1, S2 audible. LUNGS: The patient noted with moderate decreased breath sounds, mild to moderate expiratory wheezing, continue to gradually decrease. ABDOMEN: Soft, nontender. LABORATORY DATA: No labs were done today. Blood culture for the patient previously from the 12/28/2016 reported no bacterial growth. IMPRESSION: 1. The patient with acute ongoing exacerbation of chronic obstructive pulmonary disease, acute tracheobronchitis. 2. History of nicotine dependence. 3. History of allergic rhinitis. 4. History of essential hypertension. 5. Resolving tachycardia with gradual improvement and exacerbation of chronic obstructive pulmonary disease, which is a normal finding. PLAN OF TREATMENT: The patient would be considered either residential facility placement or the home setting for the IV antibiotics and corticosteroids administration. account services associate consultation will be needed for that reason. In the meantime, no other changes in the medical management of the patient needs to be done. Further treatment changes will be done for the patient based on the progression of the illness. The dose of Solu-Medrol has been decreased to 40 mg every 8 hours. [place], [place] PROGRESS NOTE NAME: PETE PASCUAL UNIT #: [id number] ROOM: 519 DOCTOR: LUMA HER MD BIRTHDATE: [birth year] LUMA PATTON MD CM:PNTRANS [id number] LUMA VALDEZ MD 01/01/17 0231 interface
--- NOTE | ~2016-12-28 | PR ---
[place], [place] PROGRESS NOTE [id number] UN[facility] #: [id number] ROOM: 519 DOCTOR: POOJA VALDEZ MD,LUMA BIRTHDATE: [birth year] DOS: 01/01/2017 PULMONARY FOLLOWUP SUBJECTIVE: She has been noted with continued reduction and improvement in the respiratory symptoms of wheezing, coughing and shortness of breath, intravenous steroids, which were decreased yesterday, antibiotics were continued. OBJECTIVE: VITAL SIGNS: Showed normal temperature, respiratory rate 18, heart rate of 95, blood pressure 132/77. A pulse oxygen saturation of the patient recorded as 96%. HEENT: Showed no new change. NECK: Supple. CARDIOVASCULAR SYSTEM: S1, S2 audible. LUNGS: Occasional wheezing. No crackles. ABDOMEN: Soft, nontender. IMPRESSION: 1. The patient with resolving tachycardia with significant improvement noted in acute exacerbation of chronic obstructive pulmonary disease and acute bronchitis currently present. 2. Anxiety disorder and essential hypertension. PLAN OF TREATMENT: The patient could have a PICC line inserted and started on IV Rocephin 1 g daily as an outpatient and Solu-Medrol 40 mg b.i.d. for 1 week. She has been assessed in the office. The patient to determine the further continuation for extension of the antibiotics and corticosteroids as needed. She was advised about tobacco cessation as well. Other previous treatment plan to be continued. Usual care. LUMA PATTON MD CM:PNTRANS [id number] LUMA VALDEZ MD 01/02/17 0047 interface
[2016-12-28] MEDS ORDERED: NORVASC5 MG PO (17:47)
[2016-12-28] MEDS ORDERED: DOXYCYCLINE100 MG PO (17:48)
[2016-12-28] MEDS ORDERED: PREDNISONE1 MG PO (17:48)
[2016-12-28 18:07] VITALS: BP 130/92
[2016-12-28 19:18] LABS: BASO % 0.1 % (0.0-1.0); HEMATOCRIT 42.7 % (37.0-47.0); HEMOGLOBIN 14.5 g/dl (12.0-16.0); IG # 0.1 10*3/uL (0.0-0.1); LYMPH # 2.1 10*3/uL (1.3-4.4); LYMPH % 23.4 % (27.0-41.0); MEAN CELL VOLUME 88.6 fl (81.0-99.0); MEAN CORPUSCULAR HGB 30.1 pg (27.0-31.0); MEAN PLATELET VOLUME 9.8 fl (9.6-12.3); MONO # 0.6 10*3/uL (0.1-1.0); MONO % 6.2 % (3.0-9.0); NEUT # 6.3 10*3/uL (2.3-7.9); NEUT % 69.6 % (47.0-73.0); PLATELET COUNT AUTOMATED 330 10*3/uL (130-400); RED BLOOD COUNT 4.82 10*6/uL (4.10-5.10); RED CELL DISTRI WIDTH 13.2 % (0-14.5)
[2016-12-28 19:39] LABS: ALBUMIN 4.1 gm/dl (3.1-4.5); ALKALINE PHOSPHATASE 63 U/L (45-117); BILIRUBIN, TOTAL 0.3 mg/dl (0.2-1.0); BUN 12 mg/dl (7-24); CARBON DIOXIDE 30 mmol/L (21-32); CHLORIDE 104 mmol/L (98-107); EST GLOM FILT AFRICAN AMERICAN > 60 ml/min; GLUCOSE 103 mg/dL (65-99); POTASSIUM 4.3 mmol/L (3.5-5.1); SGOT/AST 12 IU/L (3-35); SGPT/ALT 17 U/L (12-78); SODIUM 142 mmol/L (136-145); TOTAL PROTEIN 6.6 gm/dL (6.4-8.2)
[2016-12-28 20:41] VITALS: BP 126/72
[2016-12-29] VITALS: BP 127/75
[2016-12-29 00:41] LABS: CKMB 4.2 ng/ml (0.5-3.6); CPK 74 U/L (26-192); TROPONIN I < 0.015 ng/ml (<0.045)
[2016-12-29 06:35] LABS: BASO % 0.2 % (0.0-1.0); HEMATOCRIT 40.2 % (37.0-47.0); HEMOGLOBIN 13.3 g/dl (12.0-16.0); IG # 0.1 10*3/uL (0.0-0.1); LYMPH % 15.3 % (27.0-41.0); MEAN CELL VOLUME 89.9 fl (81.0-99.0); MEAN CORPUSCULAR HGB 29.8 pg (27.0-31.0); MEAN CORPUSCULAR HGB CONC 33.1 g/dl (33.0-37.0); MEAN PLATELET VOLUME 10.2 fl (9.6-12.3); MONO # 0.1 10*3/uL (0.1-1.0); MONO % 1.8 % (3.0-9.0); NEUT # 5.4 10*3/uL (2.3-7.9); NEUT % 81.5 % (47.0-73.0); PLATELET COUNT AUTOMATED 283 10*3/uL (130-400); RED BLOOD COUNT 4.47 10*6/uL (4.10-5.10); RED CELL DISTRI WIDTH 13.2 % (0-14.5); WHITE BLOOD COUNT 6.7 10*3/uL (4.8-10.8)
[2016-12-29 06:47] LABS: CKMB 4.3 ng/ml (0.5-3.6); CPK 64 U/L (26-192)
[2016-12-29 06:58] LABS: TROPONIN I < 0.015 ng/ml (<0.045)
[2016-12-29 07:02] LABS: ALBUMIN 3.3 gm/dl (3.1-4.5); BUN 11 mg/dl (7-24); CARBON DIOXIDE 29 mmol/L (21-32); CHLORIDE 109 mmol/L (98-107); EST GLOM FILT AFRICAN AMERICAN > 60 ml/min; GLUCOSE 119 mg/dL (65-99); MAGNESIUM 2.3 mg/dL (1.5-2.1); PHOSPHOROUS 4.1 mg/dL (2.5-4.9); POTASSIUM 4.2 mmol/L (3.5-5.1); SGOT/AST 11 IU/L (3-35); SGPT/ALT 16 U/L (12-78); SODIUM 143 mmol/L (136-145)
[2016-12-29 07:03] LABS: ALKALINE PHOSPHATASE 54 U/L (45-117); BILIRUBIN, TOTAL 0.2 mg/dl (0.2-1.0); TOTAL PROTEIN 5.8 gm/dL (6.4-8.2)
[2016-12-29 07:20] LABS: PROTHROMBIN TIME 10.7 SECONDS (9.0-12.4)
[2016-12-29 08:00] VITALS: BP 146/80
[2016-12-29 12:00] VITALS: BP 120/80
[2016-12-29 12:32] LABS: CKMB 4.1 ng/ml (0.5-3.6); CPK 57 U/L (26-192)
[2016-12-29 12:39] LABS: TROPONIN I < 0.015 ng/ml (<0.045)
[2016-12-29 16:00] VITALS: BP 127/80
[2016-12-29 20:00] VITALS: BP 158/89
[2016-12-30] VITALS: BP 137/81
[2016-12-30 06:21] LABS: BASO % 0.2 % (0.0-1.0); HEMATOCRIT 38.5 % (37.0-47.0); HEMOGLOBIN 12.8 g/dl (12.0-16.0); IG # 0.1 10*3/uL (0.0-0.1); LYMPH % 9.3 % (27.0-41.0); MEAN CELL VOLUME 90.2 fl (81.0-99.0); MEAN CORPUSCULAR HGB CONC 33.2 g/dl (33.0-37.0); MEAN PLATELET VOLUME 10.2 fl (9.6-12.3); MONO # 0.4 10*3/uL (0.1-1.0); MONO % 3.9 % (3.0-9.0); NEUT % 85.5 % (47.0-73.0); PLATELET COUNT AUTOMATED 291 10*3/uL (130-400); RED BLOOD COUNT 4.27 10*6/uL (4.10-5.10); RED CELL DISTRI WIDTH 13.2 % (0-14.5); WHITE BLOOD COUNT 10.5 10*3/uL (4.8-10.8)
[2016-12-30 06:50] LABS: BUN 9 mg/dl (7-24); CARBON DIOXIDE 30 mmol/L (21-32); CHLORIDE 108 mmol/L (98-107); EST GLOM FILT AFRICAN AMERICAN > 60 ml/min; GLUCOSE 133 mg/dL (65-99); POTASSIUM 3.5 mmol/L (3.5-5.1); SODIUM 145 mmol/L (136-145)
[2016-12-30 08:00] VITALS: BP 140/82
[2016-12-30 12:00] VITALS: BP 136/75
[2016-12-30 16:00] VITALS: BP 133/83
[2016-12-30 20:00] VITALS: BP 138/81
[2016-12-31] VITALS: BP 128/83
[2016-12-31 08:00] VITALS: BP 139/90
[2016-12-31 12:00] VITALS: BP 145/80
[2016-12-31 16:00] VITALS: BP 139/81
[2016-12-31 20:00] VITALS: BP 148/86
[2017-01-01] VITALS: BP 140/82; BP 140/96
[2017-01-01 08:00] VITALS: BP 132/77
[2017-01-01] MEDS ORDERED: NOVAPLUS SOLU-M40 MG IV (09:40)
[2017-01-01] MEDS ORDERED: CEFTRIAXONE1 GM IJ (09:40)
[2017-01-01 12:00] VITALS: BP 130/80
[2017-01-01 16:00] VITALS: BP 142/73
[2017-01-01 20:00] VITALS: BP 119/65
[2017-01-02] VITALS: BP 122/71
[2017-01-02 06:41] LABS: BASO % 0.3 % (0.0-1.0); EOS % 0.1 % (1.0-4.0); HEMATOCRIT 40.8 % (37.0-47.0); HEMOGLOBIN 13.8 g/dl (12.0-16.0); IG # 0.2 10*3/uL (0.0-0.1); LYMPH # 1.3 10*3/uL (1.3-4.4); LYMPH % 12.8 % (27.0-41.0); MEAN CELL VOLUME 88.5 fl (81.0-99.0); MEAN CORPUSCULAR HGB 29.9 pg (27.0-31.0); MEAN CORPUSCULAR HGB CONC 33.8 g/dl (33.0-37.0); MEAN PLATELET VOLUME 10.1 fl (9.6-12.3); MONO # 0.6 10*3/uL (0.1-1.0); MONO % 6.2 % (3.0-9.0); NEUT % 78.5 % (47.0-73.0); PLATELET COUNT AUTOMATED 267 10*3/uL (130-400); RED BLOOD COUNT 4.61 10*6/uL (4.10-5.10); RED CELL DISTRI WIDTH 12.9 % (0-14.5); WHITE BLOOD COUNT 10.2 10*3/uL (4.8-10.8)
[2017-01-02 07:26] LABS: EST GLOM FILT AFRICAN AMERICAN > 60 ml/min
[2017-01-02 08:00] VITALS: BP 124/72
[2017-01-02 12:00] VITALS: BP 124/70
[2017-01-02 16:00] VITALS: BP 150/94
== END 2017-01-02 17:44 | disposition home health service (06) | DRG 871 ==
LOC: 5E 17:13
PROVIDERS: Family Medicine; Internal Medicine
DX: A41.9 Sepsis, unspecified organism (principal); J96.01 Acute respiratory failure with hypoxia; J18.9 Pneumonia, unspecified organism; J44.1 Chronic obstructive pulmonary disease with (acute) exacerbation; J44.0 Chronic obstructive pulmonary disease with (acute) lower respiratory infection; E44.1 Mild protein-calorie malnutrition; Z68.1 Body mass index [BMI] 19.9 or less, adult; D72.810 Lymphocytopenia; N18.9 Chronic kidney disease, unspecified; I10 Essential (primary) hypertension; E83.41 Hypermagnesemia; F41.9 Anxiety disorder, unspecified; J20.9 Acute bronchitis, unspecified; R63.6 Underweight; E55.9 Vitamin D deficiency, unspecified; F17.210 Nicotine dependence, cigarettes, uncomplicated; Z82.5 Family history of asthma and other chronic lower respiratory diseases; Z88.1 Allergy status to other antibiotic agents; Z88.2 Allergy status to sulfonamides; Z71.6 Tobacco abuse counseling; Z88.8 Allergy status to other drugs, medicaments and biological substances; Z79.899 Other long term (current) drug therapy; Z82.49 Family history of ischemic heart disease and other diseases of the circulatory system

== ENCOUNTER 2017-03-16 04:10 | Inpatient (IN) | payer OTHER ==
[~2017-03-16] VITALS: Ht 160 cm; Wt 54.4 kg
[2017-03-16] VITALS (8 sets, daily range): BP systolic 119–155; BP diastolic 67–88
--- NOTE | ~2017-03-16 | PROC NOTE ---
[place], [place] PROCEDURE NOTE NAME: PETE PASCUAL [facility] #: [id number] UNIT #: [id number] ROOM: 502 DOCTOR: POOJA VALDEZ MD,LUMA BIRTHDATE: [birth year] DOS: 03/20/2017 PREOPERATIVE DIAGNOSIS: Persistent nonresolving cough with the patient's current ongoing medical problems. POSTOPERATIVE DIAGNOSES: 1. Severe tracheobronchitis. 2. Removal of mucus plugs infection from endobronchial tree bilaterally. 3. Biopsy of the left endobronchial tree and the lingular subsegment. PROCEDURE DESCRIPTION: Informed consent obtained for the patient. The patient brought to the OR and placed in the supine position. Conscious sedation administered by the Anesthesia Department. After achieving appropriate sedation, airway introduced into the mouth. Bronchoscope advanced into the airway into the laryngeal area. Epiglottis and vocal cord were seen. Bronchoscope advanced to the vocal cord and tracheal lumen, which shows [id number] amount of mucopurulent material which was suctioned out to the kaitlynn level. Inflammatory changes of the mucosa for the patient was noted. All the secretions suctioned out clear with the help of normal saline wash. Kaitlynn was noted. Right upper, right middle, right lower, left upper, lingular lower lobe bronchi were all examined. Large plugs of mucus secretions removed from the endobronchial tree bilaterally. A small lesion was noted in the lingular opening for the patient of the endobronchial tree, which was biopsied. This probably is considered most likely inflammatory tissue. However, the malignancy to be excluded. Procedure was completed without difficulty. Several biopsies were taken and sent to pathology. Cytology was also done for the patient. Bronchial washing. Postoperative finding will be discussed with the patient once the patient recovers the effects of acute sedation. LUMA PATTON MD CM:PROCNOTE:PROCEDURE NOTE [id number] LUMA VALDEZ MD
--- NOTE | ~2017-03-16 | PR ---
[place], [place] PROGRESS NOTE NAME: PETE PASCUAL [facility] #: [id number] UNIT #: [id number] ROOM: 502 DOCTOR: POOJA VALDEZ MD,LUMA BIRTHDATE: [birth year] DOS: 03/23/2017 SUBJECTIVE: She has been noted comfortable at this time. She was still awaiting for the discharge. The PICC line was placed for the patient's IV antibiotic therapy, she has been noted with continued resolution of symptoms of cough. She denies symptoms of chest pain. She denies symptoms of active wheezing and shortness of breath is resolving. OBJECTIVE: VITAL SIGNS: Normal temperature, respiratory rate 20, heart rate 102, blood pressure 117/75. HEENT: Showed no new change. NECK: Supple. CARDIOVASCULAR: S1, S2 audible. LUNGS: The patient noted with moderate decreased breath sounds bilaterally. ABDOMEN: Soft, nontender. IMPRESSION: 1. The patient with resolving acute tracheobronchitis. The patient with exacerbation of chronic obstructive pulmonary disease as well as tachycardia. 2. Inflammatory lesion in the left lingula bronchus, which has been noted as nonmalignant. 3. Previous history of nicotine abuse. PLAN OF MANAGEMENT: Continuation of the current therapy plan of care as previously in progress. No changes in the treatment for this patient at this time needs to be done. Discharge the patient on IV antibiotics, Rocephin and Solu-Medrol 40 mg b.i.d. for 2 weeks. LUMA PATTON MD CM:LISETH [id number] LUMA VALDEZ MD 03/23/17 1623 interface
[~2017-03-16 04:10] MED LIST changes: +CEFTRIAXONE1 GM IJ; +DOXYCYCLINE100 MG PO; +NORVASC5 MG PO; +NOVAPLUS SOLU-M40 MG IV; +PREDNISONE1 MG PO
[2017-03-16] MEDS ORDERED: VISTARIL25 MG PO (04:16)
[2017-03-16 04:52] LABS: HEMATOCRIT 46.5 % (37.0-47.0); HEMOGLOBIN 15.1 g/dl (12.0-16.0); MEAN CELL VOLUME 92.6 fl (81.0-99.0); MEAN CORPUSCULAR HGB 30.1 pg (27.0-31.0); MEAN CORPUSCULAR HGB CONC 32.5 g/dl (33.0-37.0); MEAN PLATELET VOLUME 9.8 fl (9.6-12.3); PLATELET COUNT AUTOMATED 257 10*3/uL (130-400); RED BLOOD COUNT 5.02 10*6/uL (4.10-5.10); RED CELL DISTRI WIDTH 13.7 % (0-14.5); WHITE BLOOD COUNT 15.8 10*3/uL (4.8-10.8)
[2017-03-16 05:08] LABS: ALBUMIN 3.9 gm/dl (3.1-4.5); ALKALINE PHOSPHATASE 58 U/L (45-117); BILIRUBIN, TOTAL 0.4 mg/dl (0.2-1.0); BUN 11 mg/dl (7-24); CARBON DIOXIDE 34 mmol/L (21-32); CHLORIDE 102 mmol/L (98-107); EST GLOM FILT AFRICAN AMERICAN > 60 ml/min; GLUCOSE 100 mg/dL (65-99); POTASSIUM 3.6 mmol/L (3.5-5.1); SGOT/AST 11 IU/L (3-35); SGPT/ALT 22 U/L (12-78); SODIUM 142 mmol/L (136-145); TOTAL PROTEIN 6.5 gm/dL (6.4-8.2)
[2017-03-16 05:17] LABS: EOSINOPHIL # 0.3 10*3/uL (0-0.4); EOSINOPHILS 2 % (1-4); LYMPHOCYTE # 4.6 10*3/uL (1.3-4.4); MONOCYTE # 0.5 10*3/uL (0.1-1.0); NEUTROPHIL # 10.4 10*3/uL (2.3-7.9); NEUTROPHILS 66 % (47-73); PLATELET SUFFICIENCY NORMAL (NORMAL); TOTAL CELLS COUNTED 100 #CELLS
[2017-03-16] MEDS ORDERED: PREDNISONE10 MG PO (08:51)
[2017-03-16] MEDS ORDERED: CALCIUM 600 +1 EA11 PO (08:52)
[2017-03-16 12:11] LABS: CKMB 4.4 ng/ml (0.5-3.6)
[2017-03-16 18:08] LABS: CKMB 3.6 ng/ml (0.5-3.6)
[2017-03-17] VITALS: BP 112/69
[2017-03-17 00:40] LABS: CKMB 3.5 ng/ml (0.5-3.6)
[2017-03-17 04:00] VITALS: BP 112/69
[2017-03-17 06:00] LABS: BASO % 0.2 % (0.0-1.0); IG # 0.1 10*3/uL (0.0-0.1); LYMPH # 1.3 10*3/uL (1.3-4.4); LYMPH % 7.7 % (27.0-41.0); MEAN CELL VOLUME 92.1 fl (81.0-99.0); MEAN CORPUSCULAR HGB 29.8 pg (27.0-31.0); MEAN CORPUSCULAR HGB CONC 32.4 g/dl (33.0-37.0); MEAN PLATELET VOLUME 10.3 fl (9.6-12.3); MONO # 0.9 10*3/uL (0.1-1.0); MONO % 5.3 % (3.0-9.0); NEUT % 85.9 % (47.0-73.0); PLATELET COUNT AUTOMATED 221 10*3/uL (130-400); RED BLOOD COUNT 4.16 10*6/uL (4.10-5.10); RED CELL DISTRI WIDTH 13.5 % (0-14.5); WHITE BLOOD COUNT 16.3 10*3/uL (4.8-10.8)
[2017-03-17 06:07] LABS: HEMATOCRIT 38.3 % (37.0-47.0); HEMOGLOBIN 12.4 g/dl (12.0-16.0)
[2017-03-17 06:32] LABS: ALBUMIN 2.9 gm/dl (3.1-4.5); BUN 12 mg/dl (7-24); CARBON DIOXIDE 28 mmol/L (21-32); CHLORIDE 107 mmol/L (98-107); GLUCOSE 111 mg/dL (65-99); MAGNESIUM 2.4 mg/dL (1.5-2.1); POTASSIUM 3.9 mmol/L (3.5-5.1); SODIUM 143 mmol/L (136-145)
[2017-03-17 06:36] LABS: PROTHROMBIN TIME 10.1 SECONDS (9.0-12.4)
[2017-03-17 06:39] LABS: ALKALINE PHOSPHATASE 46 U/L (45-117); BILIRUBIN, TOTAL 0.3 mg/dl (0.2-1.0); CHOLESTEROL 160 mg/dL (<200); EST GLOM FILT AFRICAN AMERICAN > 60 ml/min; FREE T4 0.82 ng/dl (0.76-1.46); HDL CHOLESTEROL 103 mg/dl (40-60); LDL CHOLESTEROL 48 mg/dL (9-159); PHOSPHOROUS 3.7 mg/dL (2.5-4.9); SGOT/AST 9 IU/L (3-35); SGPT/ALT 20 U/L (12-78); THYROID STIM HORMONE (HS) 0.485 uIU/ml (0.358-4.75); TOTAL PROTEIN 5.3 gm/dL (6.4-8.2); TRIGLYCERIDES 44 mg/dl (<150); VLDL CHOLESTEROL 9 mg/dL (6-40)
[2017-03-17 06:55] LABS: HEMOGLOBIN A1c 5.7 % (4.8-5.6)
[2017-03-17 07:58] LABS: FOLIC ACID 8.41 ng/mL (>5.38); VITAMIN D, 25-HYDROXY 31.8 ng/mL (30-100)
[2017-03-17 08:00] VITALS: BP 126/86
[2017-03-17 12:00] VITALS: BP 133/86
[2017-03-17 16:00] VITALS: BP 142/96
[2017-03-17 20:14] VITALS: BP 124/87
[2017-03-18] VITALS: BP 119/88
[2017-03-18 05:54] LABS: BASO % 0.2 % (0.0-1.0); HEMATOCRIT 37.5 % (37.0-47.0); HEMOGLOBIN 12.3 g/dl (12.0-16.0); IG # 0.1 10*3/uL (0.0-0.1); LYMPH # 0.9 10*3/uL (1.3-4.4); LYMPH % 6.5 % (27.0-41.0); MEAN CELL VOLUME 93.1 fl (81.0-99.0); MEAN CORPUSCULAR HGB 30.5 pg (27.0-31.0); MEAN CORPUSCULAR HGB CONC 32.8 g/dl (33.0-37.0); MEAN PLATELET VOLUME 9.8 fl (9.6-12.3); MONO # 0.4 10*3/uL (0.1-1.0); MONO % 2.9 % (3.0-9.0); NEUT # 11.9 10*3/uL (2.3-7.9); NEUT % 89.6 % (47.0-73.0); PLATELET COUNT AUTOMATED 223 10*3/uL (130-400); RED BLOOD COUNT 4.03 10*6/uL (4.10-5.10); RED CELL DISTRI WIDTH 13.3 % (0-14.5); WHITE BLOOD COUNT 13.3 10*3/uL (4.8-10.8)
[2017-03-18 08:00] VITALS: BP 126/78
[2017-03-18 12:00] VITALS: BP 120/79
[2017-03-18 15:59] VITALS: BP 115/68
[2017-03-18 20:00] VITALS: BP 130/82
[2017-03-19] VITALS: BP 128/77
[2017-03-19 07:14] LABS: BASO % 0.2 % (0.0-1.0); HEMATOCRIT 38.4 % (37.0-47.0); HEMOGLOBIN 12.7 g/dl (12.0-16.0); IG # 0.1 10*3/uL (0.0-0.1); LYMPH # 0.9 10*3/uL (1.3-4.4); LYMPH % 8.9 % (27.0-41.0); MEAN CELL VOLUME 92.8 fl (81.0-99.0); MEAN CORPUSCULAR HGB 30.7 pg (27.0-31.0); MEAN CORPUSCULAR HGB CONC 33.1 g/dl (33.0-37.0); MEAN PLATELET VOLUME 9.5 fl (9.6-12.3); MONO # 0.4 10*3/uL (0.1-1.0); MONO % 4.3 % (3.0-9.0); NEUT # 8.2 10*3/uL (2.3-7.9); NEUT % 85.6 % (47.0-73.0); PLATELET COUNT AUTOMATED 208 10*3/uL (130-400); RED BLOOD COUNT 4.14 10*6/uL (4.10-5.10); RED CELL DISTRI WIDTH 13.2 % (0-14.5); WHITE BLOOD COUNT 9.6 10*3/uL (4.8-10.8)
[2017-03-19 08:00] VITALS: BP 120/88
[2017-03-19 12:00] VITALS: BP 143/92
[2017-03-19 16:00] VITALS: BP 154/97
[2017-03-19 20:00] VITALS: BP 132/92
[2017-03-20] VITALS (10 sets, daily range): BP systolic 122–154; BP diastolic 78–105
[2017-03-20 07:25] LABS: BASO % 0.2 % (0.0-1.0); HEMATOCRIT 42.8 % (37.0-47.0); HEMOGLOBIN 14.2 g/dl (12.0-16.0); IG # 0.1 10*3/uL (0.0-0.1); LYMPH % 10.1 % (27.0-41.0); MEAN CELL VOLUME 92.8 fl (81.0-99.0); MEAN CORPUSCULAR HGB 30.8 pg (27.0-31.0); MEAN CORPUSCULAR HGB CONC 33.2 g/dl (33.0-37.0); MEAN PLATELET VOLUME 9.2 fl (9.6-12.3); MONO # 0.6 10*3/uL (0.1-1.0); MONO % 5.6 % (3.0-9.0); NEUT # 8.4 10*3/uL (2.3-7.9); NEUT % 83.1 % (47.0-73.0); PLATELET COUNT AUTOMATED 221 10*3/uL (130-400); RED BLOOD COUNT 4.61 10*6/uL (4.10-5.10); RED CELL DISTRI WIDTH 13.1 % (0-14.5); WHITE BLOOD COUNT 10.1 10*3/uL (4.8-10.8)
[2017-03-20 07:40] LABS: ALBUMIN 3.3 gm/dl (3.1-4.5); ALKALINE PHOSPHATASE 43 U/L (45-117); BILIRUBIN, TOTAL 0.3 mg/dl (0.2-1.0); BUN 11 mg/dl (7-24); CARBON DIOXIDE 35 mmol/L (21-32); CHLORIDE 99 mmol/L (98-107); EST GLOM FILT AFRICAN AMERICAN > 60 ml/min; GLUCOSE 121 mg/dL (65-99); POTASSIUM 3.8 mmol/L (3.5-5.1); SGOT/AST 14 IU/L (3-35); SGPT/ALT 35 U/L (12-78); SODIUM 140 mmol/L (136-145); TOTAL PROTEIN 6.2 gm/dL (6.4-8.2)
[2017-03-21] VITALS: BP 146/95
[2017-03-21 04:00] VITALS: BP 134/76
[2017-03-21 06:22] LABS: BASO % 0.1 % (0.0-1.0); HEMATOCRIT 40.5 % (37.0-47.0); HEMOGLOBIN 13.4 g/dl (12.0-16.0); IG # 0.1 10*3/uL (0.0-0.1); LYMPH % 11.2 % (27.0-41.0); MEAN CELL VOLUME 90.8 fl (81.0-99.0); MEAN CORPUSCULAR HGB CONC 33.1 g/dl (33.0-37.0); MEAN PLATELET VOLUME 9.6 fl (9.6-12.3); MONO # 0.6 10*3/uL (0.1-1.0); MONO % 6.7 % (3.0-9.0); NEUT # 7.1 10*3/uL (2.3-7.9); PLATELET COUNT AUTOMATED 203 10*3/uL (130-400); RED BLOOD COUNT 4.46 10*6/uL (4.10-5.10); RED CELL DISTRI WIDTH 12.9 % (0-14.5); WHITE BLOOD COUNT 8.8 10*3/uL (4.8-10.8)
[2017-03-21 06:40] LABS: BUN 14 mg/dl (7-24); CARBON DIOXIDE 37 mmol/L (21-32); CHLORIDE 100 mmol/L (98-107); EST GLOM FILT AFRICAN AMERICAN > 60 ml/min; GLUCOSE 116 mg/dL (65-99); POTASSIUM 3.7 mmol/L (3.5-5.1); SODIUM 141 mmol/L (136-145)
[2017-03-21 08:00] VITALS: BP 126/88
[2017-03-21 12:00] VITALS: BP 132/85
[2017-03-21 16:00] VITALS: BP 135/85
[2017-03-21 16:11] LABS: ACID FAST SPEC PROCESSING Concentration (.)
[2017-03-21 20:00] VITALS: BP 123/86
[2017-03-22] VITALS: BP 120/75
[2017-03-22 06:44] LABS: BASO % 0.2 % (0.0-1.0); HEMATOCRIT 41.2 % (37.0-47.0); HEMOGLOBIN 13.6 g/dl (12.0-16.0); IG # 0.1 10*3/uL (0.0-0.1); LYMPH % 11.1 % (27.0-41.0); MEAN CELL VOLUME 92.6 fl (81.0-99.0); MEAN CORPUSCULAR HGB 30.6 pg (27.0-31.0); MEAN PLATELET VOLUME 9.8 fl (9.6-12.3); MONO # 0.6 10*3/uL (0.1-1.0); MONO % 6.6 % (3.0-9.0); NEUT # 7.2 10*3/uL (2.3-7.9); NEUT % 81.1 % (47.0-73.0); PLATELET COUNT AUTOMATED 207 10*3/uL (130-400); RED BLOOD COUNT 4.45 10*6/uL (4.10-5.10); RED CELL DISTRI WIDTH 12.8 % (0-14.5); WHITE BLOOD COUNT 8.9 10*3/uL (4.8-10.8)
[2017-03-22 08:00] VITALS: BP 126/81; BP 128/82
[2017-03-22 12:00] VITALS: BP 129/81
[2017-03-22] MEDS ORDERED: METHYLPREDNI40 MG/M1 IV ×2 (13:45→13:47)
[2017-03-22] MEDS ORDERED: LEVAQUIN500 M2 PO (13:45)
[2017-03-22] MEDS ORDERED: CEFTRIAXONE1 GM IJ (13:47)
[2017-03-22 16:00] VITALS: BP 137/76
[2017-03-22 20:00] VITALS: BP 107/66
[2017-03-23] VITALS: BP 129/86
[2017-03-23 08:00] VITALS: BP 117/75
[2017-03-23 12:00] VITALS: BP 122/76
== END 2017-03-23 16:15 | disposition home health service (06) | DRG 853 ==
LOC: ED 04:10 → EDHOLD 07:23 → 5E 07:23
PROVIDERS: Emergency Medicine; Hospitalist; Internal Medicine Critical Care Medicine; Internal Medicine Nephrology
PROC: 0BBL8ZX Excision of Left Lung, Via Natural or Artificial Opening Endoscopic, Diagnostic (ICD-10-PCS; 2017-03-20)
PROC: 0B978ZX Drainage of Left Main Bronchus, Via Natural or Artificial Opening Endoscopic, Diagnostic (ICD-10-PCS; 2017-03-20)
PROC: 0B938ZX Drainage of Right Main Bronchus, Via Natural or Artificial Opening Endoscopic, Diagnostic (ICD-10-PCS; 2017-03-20)
PROC: 0BB98ZX Excision of Lingula Bronchus, Via Natural or Artificial Opening Endoscopic, Diagnostic (ICD-10-PCS; 2017-03-20)
PROC: 02HV33Z Insertion of Infusion Device into Superior Vena Cava, Percutaneous Approach (ICD-10-PCS; principal; 2017-03-22)
PROC: B548ZZA Ultrasonography of Superior Vena Cava, Guidance (ICD-10-PCS; principal; 2017-03-22)
DX: A41.9 Sepsis, unspecified organism (principal); J15.6 Pneumonia due to other Gram-negative bacteria; E44.0 Moderate protein-calorie malnutrition; J44.0 Chronic obstructive pulmonary disease with (acute) lower respiratory infection; J44.1 Chronic obstructive pulmonary disease with (acute) exacerbation; I10 Essential (primary) hypertension; F17.210 Nicotine dependence, cigarettes, uncomplicated; F41.9 Anxiety disorder, unspecified; E83.41 Hypermagnesemia; Z68.21 Body mass index [BMI] 21.0-21.9, adult; Z88.1 Allergy status to other antibiotic agents; Z88.2 Allergy status to sulfonamides; Z88.8 Allergy status to other drugs, medicaments and biological substances; Z88.6 Allergy status to analgesic agent; Z79.899 Other long term (current) drug therapy; Z83.3 Family history of diabetes mellitus; Z82.49 Family history of ischemic heart disease and other diseases of the circulatory system; Z87.898 Personal history of other specified conditions

== ENCOUNTER 2017-05-30 08:26 | Inpatient (IN) | payer OTHER ==
[~2017-05-30] VITALS: Ht 160 cm; Wt 54.9 kg
[2017-05-30] VITALS (11 sets, daily range): BP systolic 112–143; BP diastolic 70–94
--- NOTE | ~2017-05-30 | CON ---
[place], [place] REPORT OF CONSULTATION NAME: PETE PASCUAL [facility] #: [id number] UNIT #: [id number] ROOM: 504 DOCTOR: LUMA HER MD BIRTHDATE: [birth year] DOS: 05/31/2017 PULMONARY CONSULTATION EVALUATION AND MANAGEMENT The patient was independently seen and examined with [id number] encounter. The history was personally taken from the patient as well. The physical examination performed. All the labs were reviewed with the patient. The assessment and management change was made for today's visit personally. Note done by the medical claims processor was approved. HISTORY OF PRESENT ILLNESS: A 52-year-old white female very well known to me with history of end-stage COPD, seen in my office this Sunday as the patient started having increased respiratory symptoms over the weekend. She was noted with increased chest congestion and coughing, which are noted mild to moderate. She was noted with excessive nasal drainage and congestion. She stated as the patient could not breathe through the nose, she was noted with worsening of the respiratory symptom. She presented to the hospital on 05/30/2017 and been admitted to the hospital for further medical management. She denies any symptoms of chest pain. The patient has been noted partial improvement in symptoms since yesterday with reduction of symptoms of shortness breath and wheezing, coughing has been still noted mild to moderate with minimal sputum expectoration if any. REVIEW OF SYSTEMS: Done by the medical claims processor. PAST MEDICAL HISTORY: 1. The patient was noted with general anxiety disorder. 2. Centrilobular emphysema. 3. Protein calorie malnutrition. 4. History of past tobacco use. 5. Vitamin D deficiency. 6. Essential hypertension. PAST SURGICAL HISTORY: 1. Noted sinus surgery. 2. . 3. Fiberoptic bronchoscopy. Last bronchoscopy done during her admission in March 2017. 4. Acute inflammatory endobronchial nodule, which was biopsied in the left lung without any evidence of malignancy. SOCIAL HISTORY: The patient lives at home. Denies history of alcohol use or any illicit drug use. She has been noted with tobacco use at the age of 17 years, half a pack to a pack of cigarettes per day in the past, which has been discontinued in 2017. Denies history of alcohol use, illicit drug use or occupation related pulmonary exposure history. FAMILY HISTORY: The patient's both parents have been . Father at 65 years with complication of COPD. Mother at 79 years with complication related to the pneumonia. [place], [place] REPORT OF CONSULTATION NAME: PETE PASCUAL UNIT #: [id number] ROOM: [facility] DOCTOR: POOJA VALDEZ MD,LUMA BIRTHDATE: [birth year] DRUG ALLERGIES: NOTED ALLERGY TO AMOXICILLIN, ZITHROMAX, RHINOCORT, SYMBICORT, NASONEX, BACTRIM, ENALAPRIL AND THE CLINDAMYCIN. HOME MEDICATIONS: Noted use of Flonase, Spiriva, loratadine, amlodipine, Singulair, prednisone, which has been recently started tapering prednisone 40 mg, prednisone 5 mg daily use, Vistaril 25 mg p.o. t.i.d. p.r.n. for anxiety. PHYSICAL EXAMINATION: GENERAL: This is a 52-year-old female who has been noted currently awake and alert without any distress at this time. Her height were recorded by the nursing staff at the current admission with height of 5 feet 3 inches, weight of 121 pounds, BMI 21.4. VITAL SIGNS: Normal temperature, respiratory rate 20-22, heart rate 115-94, blood pressure 129/85-140/85. Pulse oxygen saturation noted on 2 liters nasal cannula 96% saturation. Previously on 5 L nasal cannula, yesterday was 94% saturation on admission, saturation on room air was noted at 81% prior to hospitalization in the Emergency Room. HEENT: Head was atraumatic. Eyes nonicterus. NECK: Supple. CARDIOVASCULAR: S1, S2 is audible. LUNGS: The patient was noted with moderate decreased breath sounds with [id number] expiratory wheezing which were noted essentially decreased as compared from the past. There were no crackles. ABDOMEN: Soft, nontender and flat. EXTREMITIES: Shows no edema, clubbing or cyanosis. LABORATORY DATA: The patient's lactic acid on admission 2.6, subsequent lactic acid measurement noted as 2.1. CBC on 05/30/2017: WBC count 16.8. Remaining CBC was essentially noted completely normal. CMP of the patient 05/30/2017: Glucose 180, BUN and creatinine was normal. The influenza A and B nasal washing antigens were noted as negative. CBC of the patient this morning: WBC count 16.7. Remaining CBC was essentially remains as normal as previously. CMP of the patient this morning, normal BUN and creatinine and the other electrolytes. RSV virus assessment was also noted negative. Troponin were noted negative, normal yesterday. Chest x-ray yesterday 05/30/2017, clear lungs without any evidence of pulmonary infiltration, changes of COPD were present. IMPRESSION: 1. The patient with advanced centrilobular emphysema, which has been noted previously, currently noted with acute exacerbation of chronic obstructive pulmonary disease and acute progressive hypoxic respiratory failure with acute bronchitis. 2. History of past allergic rhinitis. 3. General anxiety disorder and others including history of essential hypertension. PLAN OF TREATMENT: The patient is already getting intravenous Solu-Medrol that will be continued as 40 mg q. 8 hours, that will be decreased from 80 mg q. 8 hours dose. Continuation of bronchodilators as ordered. Continue previous home [place], [place] REPORT OF CONSULTATION NAME: PETE PASCUAL UNIT #: [id number] ROOM: [facility] DOCTOR: LUMA HER MD BIRTHDATE: [birth year] medications after review. Continue with the Levaquin as the antibiotics as well. Additional treatment changes needs to be made based on the progression of her illness. Use of the flutter valve for the patient to help clear secretion from the endobronchial tree and also obtain the sputum for Gram stain and culture. The patient is able to expectorate the sputum. Other additional treatment changes need to be made for the patient certainly based on the progression of the illness. Thanks for allowing me to participate in the care of this patient. LUMA PATTON MD CM:CONSTR:REPORT OF CONSULTATION 1304 06/01/17 2939 interface
--- NOTE | ~2017-05-30 | PR ---
[place], [place] PROGRESS NOTE NAME: PETE PASCUAL [facility] #: [id number] UNIT #: [id number] ROOM: 504 DOCTOR: POOJA VALDEZ MD,LUMA BIRTHDATE: [birth year] DOS: 06/01/2017 The patient was seen with [id number] encounter today. The assessment was performed and the recommendation and management changes were made for this patient today as well. History was taken. Physical examination personally performed. The note done by the medical case worker was approved. SUBJECTIVE: The patient has been showing improvement and reduction of respiratory symptoms progressively. Reduction in shortness of breath noted. Cough has been noted to be mild at this time. Wheezing was also improving. OBJECTIVE: VITAL SIGNS: Essentially were noted normal. Tachycardia still noted intermittently but improving as well. Heart rate noted this morning at 101. CHEST: Auscultation noted moderately decreased breath sounds, mild expiratory wheezing. ABDOMEN: Soft, nontender. IMPRESSION: The patient has been showing improvement in her respiratory status with exacerbation of chronic obstructive pulmonary disease and acute bronchitis with reduction of the symptoms. PLAN: Solu-Medrol will be decreased to 40 mg b.i.d. Other medications to be continued without any changes. LUMA PATTON MD CM:PNTRANS [id number] LUMA VALDEZ MD 06/02/17 0036 interface
--- NOTE | ~2017-05-30 | PR ---
[place], [place] PROGRESS NOTE [id number] UN[facility] #: [id number] ROOM: 504 DOCTOR: LUMA HER MD BIRTHDATE: [birth year] DOS: 06/02/2017 SUBJECTIVE: She has been reporting reduction and improvement of respiratory symptoms with current medical management. She has been given the corticosteroids as well as antibiotics as Levaquin. The bronchodilators were also continued. The cough has improved significantly. Reduction in shortness of breath was noted. OBJECTIVE: VITAL SIGNS: Showed normal temperature this morning, respiratory rate is 18, heart rate 94, blood pressure 120/79. HEENT: Examination shows no new change. NECK: Supple. CARDIOVASCULAR SYSTEM: S1, S2 audible. LUNGS: The patient was noted without any wheezing or crackles at the present time. ABDOMEN: Soft and nontender. LABORATORY DATA: CBC: WBC count 12.3, otherwise CBC normal. BMP was noted as normal. IMPRESSION: 1. The patient with marked improvement with her acute hypoxic respiratory failure, acute exacerbation of chronic obstructive pulmonary disease as well. 2. The patient with resolving leukocytosis, as the patient was also noted with resolution of the leukocytosis and tachycardia. The patient with resolving bronchitis. 3. History of allergic rhinitis. PLAN OF TREATMENT: The patient may be considered for home discharge by the primary care physician and she was advised for followup office visit as planned. She will be continued usual dose of prednisone 5 mg daily after the patient will finish the tapering dose of prednisone. [place], [place] PROGRESS NOTE [id number] UNIT #: [id number] ROOM: 504 DOCTOR: LUMA HER MD BIRTHDATE: [birth year] LUMA PATTON MD CM:PNTRANS [phone] LUMA VALDEZ MD 06/04/17 05 interface
--- NOTE | ~2017-05-30 | PR ---
[place], [place] PROGRESS NOTE NAME: PETE PASCUAL [facility] #: [id number] UNIT #: [id number] ROOM: 504 DOCTOR: POOJA VALDEZ MD,LUMA BIRTHDATE: [birth year] DOS: 06/03/2017 SUBJECTIVE: She has not been noted any new specific complaints, has been noted with shortness of breath and stated that she could not breathe through the nose at times. The patient stated that she had previous surgery done of the nose and maybe it is blocked at this time. OBJECTIVE: VITAL SIGNS: Normal temperature, respiratory rate 20, heart rate 101, blood pressure 141/83. The pulse oxygen saturation was noted on room air 94% saturation. HEENT: No new change. NECK: Supple. CARDIOVASCULAR: S1, S2 audible. LUNGS: Shows moderate decreased breath sounds bilaterally. There was no wheezing. ABDOMEN: Soft, nontender. IMPRESSION: The patient with stable respiratory status was noted at the present time with resolving acute exacerbation of chronic obstructive pulmonary disease, acute tracheobronchitis. PLAN OF TREATMENT: [place] nasal spray for this patient's nasal passage to keep it moist. Discharge planning for this patient was noted in progress. Continue other supportive plan of management care and treatments. LUMA PATTON MD CM:PNTRANS [phone] LUMA VALDEZ MD 06/05/17 0954 interface
--- NOTE | ~2017-05-30 | PR ---
[place], [place] PROGRESS NOTE NAME: PETE PASCUAL UNIT #: [id number] ROOM: 504 DOCTOR: KANG LORENZ DO BIRTHDATE: [birth year] DOS: 06/01/2017 SUBJECTIVE: The patient was seen and examined this morning with Dr. Patton. The patient denies any complaints or concerns. The patient says has mild shortness of breath with exertion, but she states it has improved compared to yesterday. OBJECTIVE: VITAL SIGNS: Temperature 98.2, pulse 101, respiratory rate 20, blood pressure 135/85, pulse ox was 98 on 2 liters of nasal cannula. NECK: Supple. HEENT: Shows no changes. CARDIOVASCULAR: S1, S2 audible. LUNGS: Mild to moderate decreased breath sound with mild to moderate expiratory wheezes. No crackles, rales or rhonchi. ABDOMEN: Soft, nontender, nondistended. EXTREMITIES: Shows no edema. LABORATORY DATA: White cell count of 16.7, hemoglobin 12.2, platelets 222, BUN of 13, creatinine 0.56. MICROBIOLOGY: Blood culture pending to date. ASSESSMENT: 1. Advanced centrilobular emphysema. 2. Acute exacerbation of chronic obstructive pulmonary disease. 3. Acute progressing hypoxic respiratory failure with acute bronchitis. 4. History of past allergic rhinitis. 5. General anxiety disorder. 6. Essential hypertension. PLAN: 1. Solu-Medrol will be decreased to 40 mg b.i.d. The patient will be continued on Levaquin and DuoNeb treatments. 2. Continue flutter valve to help clear secretions. 3. Await sputum cultures. 4. Supportive care. KANG LORENZ DO [place], [place] PROGRESS NOTE NAME: PETE PASCUAL UNIT #: [id number] ROOM: 504 DOCTOR: KAGN LORENZ DO BIRTHDATE: [birth year] LUMA PATTON MD CM:PNTRANS [id number] KANG LORENZ DO 06/01/17 1049 interface
--- NOTE | ~2017-05-30 | CON ---
[place], [place] REPORT OF CONSULTATION NAME: PETE PASCUAL [facility] #: [id number] UNIT #: [id number] ROOM: 504 DOCTOR: KANG LORENZ DO BIRTHDATE: [birth year] DOS: 05/30/2017 REASON FOR CONSULTATION: Acute exacerbation of COPD, by the hospitalist service. HISTORY OF PRESENT ILLNESS: This is a 52-year-old female who presents to [facility] with chief complaint of shortness of breath. The patient has a history of COPD and she uses 2 liters of oxygen at night. The patient states that she saw Dr. Patton on Sunday and the shortness of breath has been worsening since Sunday. She reports she felt sick as if she is catching a cold, then feeling that there is some throat congestion. The patient says she is having increasing cough and thick yellow mucus production. The patient says that her shortness of breath is worse with exertion. The patient denies any current concerns at this time. PAST MEDICAL HISTORY: Anxiety, COPD, essential hypertension, vitamin D deficiency, protein-calorie malnutrition. PAST SURGICAL HISTORY: Sinus surgery, history of bronchoscopy, history of . FAMILY HISTORY: The patient's father has a history of COPD and he at the age of 65. Mother has history of pneumonia and at the age of 79. ALLERGIES: The patient is allergic to AMOXICILLIN, AZITHROMYCIN, RHINOCORT, SYMBICORT, NASONEX, BACTRIM, ENALAPRIL, SULFA DRUGS, CLINDAMYCIN, MUCINEX. HOME MEDICATIONS: Albuterol, Norvasc, calcium, vitamin D, Advair, Vistaril, Claritin, Spiriva, vitamin E. REVIEW OF SYSEMS: CONSTITUTIONAL: The patient reports chills. Denies fever, weight loss, weight gain. HEENT: Denies vision change, hearing loss, nasal or ear discharge, or blurry vision. CARDIOVASCULAR: The patient reports chest tightness. Denies palpitation or lower extremity edema. RESPIRATORY: The patient reports shortness of breath, cough, wheezing, dyspnea on exertion, paroxysmal nocturnal dyspnea, sputum production. The patient denies hemoptysis or stridor. ABDOMEN: The patient denies nausea, abdominal pain, vomiting, diarrhea or constipation. GENITOURINARY: The patient denies dysuria, hematuria, increase or decrease in frequency. NEUROLOGIC: The patient denies lightheadedness, dizziness or confusion. PSYCHIATRIC: The patient denies substance abuse or depression. The patient reports anxiety. ENDOCRINE: Denies polydipsia, hot intolerance or cold intolerance. SKIN: Denies new rashes, lesions or ulcer. [place], [place] REPORT OF CONSULTATION NAME: PETE PASCUAL UNIT #: [id number] ROOM: 504 DOCTOR: KANG LORENZ DO BIRTHDATE: [birth year] PHYSICAL EXAMINATION: VITAL SIGNS: Temperature 98.3, pulse 115, respiratory rate 20, blood pressure 129/85, pulse ox 96% on 2 liters nasal cannula. GENERAL: The patient appears alert, awake, cooperative, in mild distress. HEAD: Normocephalic, atraumatic. EYES: No lesion, ulcers, no drainage. ENT: Without lesion or masses. NECK: Supple. HEART: Rate regular rhythm. No gallops or murmur. LUNGS: Shortness of breath, cough, respiratory distress. Diminished severely at the bases. ABDOMEN: Soft, positive bowel sounds, nontender, nondistended. EXTREMITIES: No erythema, no edema. NEUROLOGIC: Grossly intact, without focal neurologic deficit. SKIN: Warm, dry, no rashes. LABORATORY DATA: White cell count 16.7, hemoglobin 12.2, platelets down to 22. BUN 13, creatinine 0.56. RSV is negative. MICROBIOLOGY: Influenza A and B are negative. Blood cultures pending to date. IMAGING: Chest x-ray on 05/30/2017 showed clear lungs. ASSESSMENT AND PLAN: Please refer to Dr. Patton's note for assessment and plan. Thank you for the consult. KANG LORENZ DO LUMA PATTON MD CM:CONSTR:REPORT OF CONSULTATION 1356 05/31/17 1519 interface
--- NOTE | ~2017-05-30 | EKG ---
[place], [place] ELECTROCARDIOGRAM REPORT NAME: PETE PASCUAL UNIT #: [id number] ROOM: [facility] DOCTOR: POOJA VALDEZ MD,LUMA BIRTHDATE: [birth year] DOS: 05/30/2017 ELECTROCARDIOGRAM TIME: 09:14 a.m. The electrocardiogram for this patient showed normal sinus rhythm for this patient with sinus tachycardia. Heart rate of 115 beats per minute. Mild prolongation of the QT interval for this patient was also noted. Otherwise EKG were noted unremarkable. LUMA PATTON MD CM:EKGRPT:ELECTROCARDIOGRAM REPORT 1144 1152 LUMA VALDEZ MD
[~2017-05-30 08:26] MED LIST changes: +CALCIUM 600 +1 EA11 PO; +METHYLPREDNI40 MG/M1 IV; +VISTARIL25 MG PO
--- NOTE | 2017-05-30 09:01 | NUR ---
WAS ABLE TO TALK TO THE PATIENT AND THE PATIENT APPEARED TO CALM DOWN AND RESPIRATIONS DECREASED AND THE PATIENT APPEARED MORE CALM AFTER TALKING TO THE PATIENT FOR APPROX 10 MINUTES, PATIENT IS RESTING IN BED, LAB IN WITH THE PATIENT AND THE PATIENT APPEARS TO BE CALM AND RELAXED WITH RESPIRATIONS ARE EASY AND NONLABORED, CALL LIGHT IN REACH OF THE PATIENT, CONTINUING TO MONITOR THE PATIENT. DONNA BAE
[2017-05-30 09:13] LABS: HEMATOCRIT 43.4 % (37.0-47.0); HEMOGLOBIN 14.4 g/dl (12.0-16.0); MEAN CELL VOLUME 91.2 fl (81.0-99.0); MEAN CORPUSCULAR HGB 30.3 pg (27.0-31.0); MEAN CORPUSCULAR HGB CONC 33.2 g/dl (33.0-37.0); MEAN PLATELET VOLUME 9.9 fl (9.6-12.3); PLATELET COUNT AUTOMATED 245 10*3/uL (130-400); RED BLOOD COUNT 4.76 10*6/uL (4.10-5.10); RED CELL DISTRI WIDTH 13.8 % (0-14.5); WHITE BLOOD COUNT 16.8 10*3/uL (4.8-10.8)
--- NOTE | 2017-05-30 09:28 | NUR ---
PATIENT IS RESTING IN BED, STATES THAT SHE DOES FEEL BETTER AFTER THE BREATHING TX, PATIENT APPERAS TO BE CALM AT THIS TIME, FRIEND OF THE PATIENT HAS ARRIVED NOW AND IN WITH THE PATIENT, SKIN IS LESS CLAMMY AND COOL AT THIS TIME, RESPIRAITONS ARE EASY AND NONLABORED AT THIS TIME, CALL LIGHT IN REACH OF THE PATIENT, CONTINUING TO MONITOR THE PATIENT. CATALINORN
[2017-05-30 09:30] LABS: ALBUMIN 4.1 gm/dl (3.1-4.5); ALKALINE PHOSPHATASE 58 U/L (45-117); BUN 12 mg/dl (7-24); CHLORIDE 105 mmol/L (98-107); CREATININE 0.81 mg/dL (0.55-1.02); MAGNESIUM 2.3 mg/dL (1.5-2.1); POTASSIUM 3.8 mmol/L (3.5-5.1); SGOT/AST 13 IU/L (3-35); SGPT/ALT 19 U/L (12-78); SODIUM 142 mmol/L (136-145); TOTAL PROTEIN 6.9 gm/dL (6.4-8.2)
[2017-05-30 09:32] LABS: ACT PARTIAL THROMBO TIME 23.1 SECONDS (20.8-31.5)
[2017-05-30 09:33] LABS: TROPONIN I < 0.015 ng/ml (<0.045)
--- NOTE | 2017-05-30 09:39 | NUR ---
PER PATIENT SHE IS FEELING MUCH BETTER AT THIS TIME. DONNA BAE
[2017-05-30 09:42] LABS: TOTAL CELLS COUNTED 100 #CELLS
[2017-05-30 09:43] LABS: PLATELET SUFFICIENCY NORMAL (NORMAL)
--- NOTE | 2017-05-30 09:59 | NUR ---
PATIENT IS ALERT AND ORIENTED X3, SKIN IS PINK AND WARM AT THIS TIME, RESPIRATIONS ARE EASY AND NONLABORED, PATIENT IS RESTING IN BED, CALL LIGHT IN REACH OF THE PATIENT, CONTINUING TO MONITOR THE PATIENT. CATALINORN
--- NOTE | 2017-05-30 11:30 | NUR ---
PATIENT IS ALERT AND ORIENTED X3, SKIN IS PINK, WARM, AND DRY,RESPIRATIONS ARE EASY AND NONLABORED, PATIENT STATES THAT SHE IS FEELING BETTER AT THIS TIME, CALL ROBYN SHEEHAN OF THE PATIENT, CONTINUING OT MONITOR THE PATIENT. DONNA BAE
--- NOTE | 2017-05-30 12:31 | NUR ---
PATIENT TAKEN TO ROOM 504-1,PLACED IN BED AND ON THE MONITOR, CARE TRANSFERRED TO DONNA BOSTON. DONNA BAE
[2017-05-30] MEDS ORDERED: PROAIR HFA8.5 GM INH (14:13)
[2017-05-30] MEDS ORDERED: VITAMIN E400 UNI3 PO (14:14)
[2017-05-30] MEDS ORDERED: VITAMIN C500 M4 PO (14:14)
[2017-05-30] MEDS ORDERED: PREDNISONE10 MG PO ×2 (14:15→14:18)
[2017-05-30] MEDS ORDERED: ZINC CHELATED50 M2 PO (14:16)
[2017-05-30] MEDS ORDERED: Clotrimazole Tr10 MG MM (14:17)
[2017-05-30] MEDS ORDERED: SINGULAIR10 M1 PO (14:19)
--- NOTE | 2017-05-30 14:45 | NUR ---
A 52, admitted to 5E, under the services of YANG Rob DO with a diagnosis of ACUTE RESP FAILURE, COPD EXACERBATION, ELEVATED BP. Chief complaint is SHORTNESS OF BREATH. Patient arrived via bed from ER. Monitor applied. Initial assessment completed. Vital signs taken and recorded. YANG ROB DO notified of admission to the unit. Orders received. See assessment for past medical history, medications and allergies. Patient and/or family oriented to unit. [address] policy reviewed. Clothing/patient valuable form completed. GIDEON DALLAS
--- NOTE | 2017-05-30 20:00 | NUR ---
IN TO ASSESS PATIENT, PATIENT RESTING IN BED. BREATHING IS EASY AND REGULAR ON 4L NC, PT STATES SHE IS ONLY DEPENDENT ON OXYGEN WHEN SHE SLEEPS. WHEEZING NOTED THROUGHOUT LUNG PENALOZA. C/O DYSPNEA ON EXERTION. NORMOACTIVE BOWELS. DENIES CP. NO EDEMA NOTED. CALL LIGHT WITHIN REACH, WILL MONITOR
--- NOTE | 2017-05-30 23:56 | NUR ---
PRN XANAX GIVEN FOR PT COMPLAINTS OF ANXIETY. CALL LIGHT WITHIN REACH, WILL MONITOR
[2017-05-31] VITALS: BP 130/85
--- NOTE | 2017-05-31 01:00 | NUR ---
PRN XANAX APPEARS EFFECTIVE, PT SLEEPING
[2017-05-31 06:43] LABS: BASO % 0.1 % (0.0-1.0); LYMPH # 1.6 10*3/uL (1.3-4.4); LYMPH % 9.4 % (27.0-41.0); MEAN CELL VOLUME 89.9 fl (81.0-99.0); MEAN CORPUSCULAR HGB 30.2 pg (27.0-31.0); MEAN CORPUSCULAR HGB CONC 33.6 g/dl (33.0-37.0); MEAN PLATELET VOLUME 10.1 fl (9.6-12.3); MONO # 0.7 10*3/uL (0.1-1.0); MONO % 4.3 % (3.0-9.0); NEUT # 14.3 10*3/uL (2.3-7.9); NEUT % 85.5 % (47.0-73.0); PLATELET COUNT AUTOMATED 222 10*3/uL (130-400); RED BLOOD COUNT 4.04 10*6/uL (4.10-5.10); RED CELL DISTRI WIDTH 13.5 % (0-14.5); WHITE BLOOD COUNT 16.7 10*3/uL (4.8-10.8)
[2017-05-31 06:48] LABS: HEMATOCRIT 36.3 % (37.0-47.0); HEMOGLOBIN 12.2 g/dl (12.0-16.0)
[2017-05-31 07:21] LABS: ALBUMIN 3.3 gm/dl (3.1-4.5); ALKALINE PHOSPHATASE 52 U/L (45-117); BUN 13 mg/dl (7-24); CHLORIDE 104 mmol/L (98-107); CHOLESTEROL 156 mg/dL (<200); CREATININE 0.56 mg/dL (0.55-1.02); HDL CHOLESTEROL 84 mg/dl (40-60); LDL CHOLESTEROL 63 mg/dL (9-159); MAGNESIUM 2.5 mg/dL (1.5-2.1); PHOSPHOROUS 3.1 mg/dL (2.5-4.9); SGOT/AST 9 IU/L (3-35); SGPT/ALT 17 U/L (12-78); SODIUM 141 mmol/L (136-145); TOTAL PROTEIN 5.9 gm/dL (6.4-8.2); TRIGLYCERIDES 47 mg/dl (<150); VLDL CHOLESTEROL 9 mg/dL (6-40)
[2017-05-31 07:26] LABS: THYROID STIM HORMONE (HS) 0.468 uIU/ml (0.358-4.75)
[2017-05-31 07:30] LABS: VITAMIN D, 25-HYDROXY 27.8 ng/mL (30-100)
[2017-05-31 08:00] VITALS: BP 140/85
--- NOTE | 2017-05-31 09:39 | NUR ---
PT GIVEN XANAX PRN FOR ANXIETY. WILL CONTINUE TO MONITOR.
[2017-05-31 12:00] VITALS: BP 129/85
--- NOTE | 2017-05-31 14:32 | NUR ---
Occupational Therapy evaluation completed this date on 5 with full eval to follow. Precautions include SOB w/ exertion, O2 dep, IV UE, low complexity level. Recommend OT per POC for energy conservation/work simplification and breathing education and return home with no further services needed at this time. Thank you for this referral. Tasha Miguel OTR/L
[2017-05-31 16:00] VITALS: BP 131/95
[2017-05-31 20:00] VITALS: BP 146/80
[2017-06-01] VITALS: BP 135/85
--- NOTE | 2017-06-01 02:28 | NUR ---
PATIENT MEDICATED WITH XANAX AT 2157 FOR COMPLAINTS OF ANXIETY AND VISTARIL AT 0031 WITH EFFECTIVE RESULTS NOTED. RESTING IN BED WITH EYES CLOSED AT THIS TIME. NO SIGNS OR SYMPTOMS OF DISTRESS NOTED. WILL CONTINUE TO MONITOR. CALL LIGHT IN REACH.
[2017-06-01 08:00] VITALS: BP 137/90
--- NOTE | 2017-06-01 10:07 | NUR ---
PT COMPLAINS OF ANXIETY, PRN GIVEN. SEE MAR. WILL MONITOR FOR EFFECTIVENESS
[2017-06-01 12:00] VITALS: BP 142/88
--- NOTE | 2017-06-01 12:30 | NUR ---
PT STATES STILL HAVING SOME ANXIETY, XANAX GIVEN. SEE MAR. WILL MONITOR FOR EFFECTIVENESS
--- NOTE | 2017-06-01 13:50 | NUR ---
PT STATES ANXIETY SOMEWHAT BETTER. COMPLAINS OF STUFFY NOSE. OXYGEN WITH HUMIDIFIER BOTTLE. WILL CONINUTE TO MONITOR
--- NOTE | 2017-06-01 15:07 | NUR ---
PATIENT STATES UP TO DATE ON FLU AND PNEUMONIA VACCINES. UPDATED VACCINE SCREEN
--- NOTE | 2017-06-01 15:28 | NUR ---
case management visits with patient, patient lives at home, has help from family, has home oxygen that she uses a night, has a nebulizer, both from [facility], patient states she will be going home when able and denies any home needs
[2017-06-01 16:00] VITALS: BP 147/88
--- NOTE | 2017-06-01 16:29 | NUR ---
PATIENT SEEN 1:1 THIS DATE 15 MINUTES. PATIENT IDENTIFIED BY NAME AND DATE OF . PATIENT COMPLETED ENERGY CONSERVATION/WORK SIMPLIFICATION EDUCAITON WITH HAND-OUT PROVIDED. PATIENT DEMONSTRATED GOOD UNDERSTANDING AND BENEFITS WITH USE. SANGEETHA ROWAN/Gopi
--- NOTE | 2017-06-01 18:51 | NUR ---
PT COMPLAINS OF ANXIETY, PRN XANAX GIVEN. SEE MAR. PT HR INCREASED SINUS TACHY AT 114
[2017-06-01 20:00] VITALS: BP 144/87
[2017-06-02] VITALS: BP 134/81
[2017-06-02] MEDS ORDERED: CEFUROXIME AXE250 MG PO (01:34)
--- NOTE | 2017-06-02 06:26 | NUR ---
PATIENT MEDICATED WITH VISTARIL AT 0050 FOR COMPLAINTS OF ANXIETY WITH EFFECTIVE RESULTS NOTED. RESTING IN BED WITH EYES CLOSED AT THIS TIME. WILL CONTINUE TO MONITOR. CALL LIGHT IN REACH.
[2017-06-02 06:40] LABS: BASO # 0.1 10*3/uL (0.0-0.1); BASO % 0.5 % (0.0-1.0); HEMATOCRIT 39.1 % (37.0-47.0); HEMOGLOBIN 13.1 g/dl (12.0-16.0); LYMPH # 1.6 10*3/uL (1.3-4.4); LYMPH % 12.7 % (27.0-41.0); MEAN CELL VOLUME 91.8 fl (81.0-99.0); MEAN CORPUSCULAR HGB 30.8 pg (27.0-31.0); MEAN CORPUSCULAR HGB CONC 33.5 g/dl (33.0-37.0); MEAN PLATELET VOLUME 10.3 fl (9.6-12.3); MONO # 0.8 10*3/uL (0.1-1.0); MONO % 6.5 % (3.0-9.0); NEUT # 9.6 10*3/uL (2.3-7.9); NEUT % 78.3 % (47.0-73.0); PLATELET COUNT AUTOMATED 229 10*3/uL (130-400); RED BLOOD COUNT 4.26 10*6/uL (4.10-5.10); RED CELL DISTRI WIDTH 13.6 % (0-14.5); WHITE BLOOD COUNT 12.3 10*3/uL (4.8-10.8)
[2017-06-02 07:08] LABS: CHLORIDE 104 mmol/L (98-107); CREATININE 0.67 mg/dL (0.55-1.02); SODIUM 141 mmol/L (136-145)
[2017-06-02 07:14] LABS: BUN 23 mg/dl (7-24)
[2017-06-02 08:36] VITALS: BP 128/79
--- NOTE | 2017-06-02 10:15 | NUR ---
MEDICATED WITH PRN PO XANAX FOR ANXIETY AND PRN PO MILK OF MAGNESIA FOR CONSTIPATION.
--- NOTE | 2017-06-02 12:15 | NUR ---
PRN PO XANAX WAS EFFECTIVE FOR ANXIETY, PER PATIENT.
--- NOTE | 2017-06-02 12:26 | NUR ---
APPLIED NICOTINE PATCH FOR SMOKING CRAVINGS.
[2017-06-02 12:28] VITALS: BP 155/89
--- NOTE | 2017-06-02 15:45 | NUR ---
PATIENT UP WALKING WITH RESPIRATORY THERAPIST FOR HOME O2 ASSESSMENT.
[2017-06-02 16:00] VITALS: BP 150/100
--- NOTE | 2017-06-02 17:30 | NUR ---
PT BP 150/100 PRIOR TO 6 MIN WALK. SPO2 ON ROOM AIR 88% PT COMPLAINED OF LIGHTHEADNESS AND TEST DISCONTINUED. PT PLACED BACK ON 2L NC 95% BP 148/102. RN NOTIFIED OF RESULTS PT QUALIFIED FOR HOME O2 WITH 88% AT REST.
--- NOTE | 2017-06-02 17:31 | NUR ---
PER RESPIRATORY THERAPIST, PATIENT AMBULATED SHORT DISTANCE ON ROOM AIR, POX 82%, PATIENT BECAME DYSPNEIC AND ANXIOUS, UNABLE TO COMPLETE THE 6 MINUTE TEST AND WAS ASSISTED BACK TO BED, O2 3L NC BACK IN PLACE.
[2017-06-02 20:00] VITALS: BP 153/94
[2017-06-03] VITALS: BP 129/70
--- NOTE | 2017-06-03 02:40 | NUR ---
PATIENT MEDICATED WITH XANAX FOR COMPLAINTS OF ANXIETY AT 2213 AND TYLENOL FOR COMPLAINTS OF A HEADACHE AT 2213 WITH EFFECTIVE RESULTS NOTED FOR BOTH. RESTING IN BED WITH EYES CLOSED AT THIS TIME. NO SIGNS OR SYMPTOMS OF DISTRESS NOTED. WILL CONTINUE TO MONITOR. CALL LIGHT IN REACH.
--- NOTE | 2017-06-03 04:18 | NUR ---
PATIENT MEDICATED WITH VISTARIL AT 0406 FOR COMPLAINTS OF ANXIETY WITH EFFECTIVE RESULTS NOTED. RESTING IN BED WITH EYES CLOSED AT THIS TIME. WILL CONTINUE TO MONITOR. CALL LIGHT IN REACH.
[2017-06-03 07:01] LABS: BASO # 0.1 10*3/uL (0.0-0.1); BASO % 0.4 % (0.0-1.0); EOS % 0.1 % (1.0-4.0); HEMATOCRIT 39.4 % (37.0-47.0); LYMPH # 2.4 10*3/uL (1.3-4.4); LYMPH % 19.8 % (27.0-41.0); MEAN CELL VOLUME 89.7 fl (81.0-99.0); MEAN CORPUSCULAR HGB 29.6 pg (27.0-31.0); MEAN PLATELET VOLUME 10.4 fl (9.6-12.3); MONO % 8.4 % (3.0-9.0); NEUT # 8.6 10*3/uL (2.3-7.9); NEUT % 69.4 % (47.0-73.0); PLATELET COUNT AUTOMATED 249 10*3/uL (130-400); RED BLOOD COUNT 4.39 10*6/uL (4.10-5.10); RED CELL DISTRI WIDTH 13.4 % (0-14.5); WHITE BLOOD COUNT 12.3 10*3/uL (4.8-10.8)
[2017-06-03 08:07] VITALS: BP 141/83
--- NOTE | 2017-06-03 09:47 | NUR ---
ADMINISTERED MAG CITRATE ONE BOTTLE X 1 ORDERED FOR CONSTIPATION.
[2017-06-03] MEDS ORDERED: PREDNISONE10 MG PO (10:04)
[2017-06-03] MEDS ORDERED: DOXYCYCLINE100 M3 PO (10:04)
[2017-06-03] MEDS ORDERED: NICODERM CQ1 EAC1 TD (10:04)
[2017-06-03] MEDS ORDERED: OXYGEN NAS (10:06)
--- NOTE | 2017-06-03 10:49 | NUR ---
ADMINISTERED ME DULCOLAX X [address] PATTON IN TO SEE PATIENT RE: PLAN OF CARE AND ORDERING A NASAL OCEAN SPRAY FOR SINUS CONGESTION.
[2017-06-03] MEDS ORDERED: CELEXA20 MG PO (10:56)
--- NOTE | 2017-06-03 11:33 | NUR ---
MESSAGE LEFT WITH CM (AVAILABLE SUNDAY -SUNDAY ONLY) RE: PATIENT HAS ORDER TO HAVE OXYGEN 24/7 INSTEAD OF AT NIGHT ONLY. PATIENT HAS O2 SERVICE THROUGH THIS COMPANY BUT ONLY ORDERED FOR AT NIGHT. LEFT CONTACT INFORMATION FOR INPATIENT FLOOR.
[2017-06-03 12:00] VITALS: BP 155/88
--- NOTE | 2017-06-03 14:03 | NUR ---
ADMINISTERED FLEETS ENEMA X 1 ORDERED, AND ALSO PRN PO XANAX FOR ANXIETY WITH DYSPNEA.
[2017-06-03 16:00] VITALS: BP 152/95
--- NOTE | 2017-06-03 17:56 | NUR ---
Discharge instructions reviewed with patient/family. Patient receptive and verbalizes understanding. Follow-up care arranged. Written instructions given to patient/family. ELODIA CROCKETT
--- NOTE | 2017-06-03 17:57 | NUR ---
PATIENT DISCHARGED BUT HAS NO OXYGEN FOR TRANSPORT HOME. PATIENT SIGNED AUTHORIZATION FORM TO USE HOSPITAL PORTABLE TANK WITH AGREEMENT THAT FAMILY WILL BRING TANK BACK IMMEDIATELY AFTER TAKING PATIENT HOME. APPROVED BY PADMA ROGERS.
== END 2017-06-03 17:57 | disposition home or self-care (01) | DRG 871 ==
LOC: ED 08:26 → EDHOLD 11:06 → 5E 11:06
PROVIDERS: Emergency Medicine; Internal Medicine; Registered Nurse; ADMIT Internal Medicine
DX: A41.9 Sepsis, unspecified organism (principal); J18.9 Pneumonia, unspecified organism; J96.01 Acute respiratory failure with hypoxia; Z99.81 Dependence on supplemental oxygen; E44.0 Moderate protein-calorie malnutrition; J44.1 Chronic obstructive pulmonary disease with (acute) exacerbation; J44.0 Chronic obstructive pulmonary disease with (acute) lower respiratory infection; I45.81 Long QT syndrome; F41.1 Generalized anxiety disorder; E83.41 Hypermagnesemia; J20.9 Acute bronchitis, unspecified; E55.9 Vitamin D deficiency, unspecified; I10 Essential (primary) hypertension; R65.20 Severe sepsis without septic shock; J30.9 Allergic rhinitis, unspecified; Z72.0 Tobacco use; Z88.1 Allergy status to other antibiotic agents; Z88.2 Allergy status to sulfonamides; Z88.8 Allergy status to other drugs, medicaments and biological substances; Z98.891 History of uterine scar from previous surgery; Z82.49 Family history of ischemic heart disease and other diseases of the circulatory system; Z83.3 Family history of diabetes mellitus; Z71.6 Tobacco abuse counseling; Z68.21 Body mass index [BMI] 21.0-21.9, adult

== ENCOUNTER 2017-06-29 09:39 | Inpatient (IN) | payer OTHER, MEDICAID ==
[~2017-06-29] VITALS: Ht 160 cm; Wt 53.6 kg
--- NOTE | ~2017-06-29 | PR ---
[place], [place] PROGRESS NOTE NAME: PETE PASCUAL [facility] #: [id number] UNIT #: [id number] ROOM: 507 DOCTOR: POOJA VALDEZ MD,LUMA BIRTHDATE: [birth year] DOS: 07/01/2017 SUBJECTIVE: She has been noted with increased wheezing, cough has been noted with small amount of sputum expectoration at times. Denies symptoms of chest pain or hemoptysis. OBJECTIVE: VITAL SIGNS: For the patient which has been recorded showed the temperature noted normal, respiratory rate 20, heart rate 106, blood pressure 119/81. Pulse oxygen saturation on 3 liters nasal cannula 94% saturation recorded. HEENT: Examination shows no acute change. NECK: Supple. CARDIOVASCULAR: S1, S2 audible. LUNGS: Moderate expiratory wheezing which are noted worsened from yesterday. ABDOMEN: Soft, nontender. LABORATORY DATA: The patient's CMP today, BUN and creatinine was normal. Total protein 5.8. CBC for this patient's; WBC count 17.4, hemoglobin 11.7, hematocrit 35.6 with a platelet count of normal. IMPRESSION: 1. The patient with acute tracheobronchitis. 2. The patient with exacerbation of chronic obstructive pulmonary disease. 3. Leukocytosis steroidal effect. 4. History of common variable hypergammaglobulinemia, recent diagnosis. PLAN OF MANAGEMENT: Continuation of the bronchodilators with oxygen supplementation, dose of the corticosteroids temporarily increased to 40 mg every 8 hours because of the increased wheezing. Continue other previous medications as in progress. The patient would be started on doxycycline 100 mg p.o. b.i.d. Continue other previous therapy, plan of management and care; usual treatment, all other supportive plan. LUMA PATTON MD CM:PNTRANS [id number] LUMA VALDEZ MD 07/02/17 0538 interface
--- NOTE | ~2017-06-29 | PR ---
[place], [place] PROGRESS NOTE [id number] #: [id number] ROOM: 507 DOCTOR: POOJA VALDEZ MD,LUMA BIRTHDATE: [birth year] DOS: 07/04/2017 SUBJECTIVE: She has been noted comfortable at this time with continued reduction and improvement in the respiratory symptoms of coughing, shortness of breath. Denies symptoms of chest pain or any abdominal pain. OBJECTIVE: VITAL SIGNS: For the patient which has been recorded showed normal temperature, respiratory rate 12, heart rate 89, blood pressure 113/74 to 115/81. Pulse oxygen saturation 3 liters nasal cannula 99% saturation recorded. HEENT: Examination shows no acute change. NECK: Supple. CARDIOVASCULAR: S1, S2 is audible. LUNGS: The patient was noted without any wheezing or crackles at the present time. The breaths are noted mild to moderately decreased bilaterally. ABDOMEN: Soft, nontender. LABORATORY DATA: Culture of sputum normal aguilar. IMPRESSION: Resolving acute tracheobronchitis. The patient with exacerbation of chronic obstructive pulmonary disease with history of common variable hypogammaglobulinemia. PLAN OF TREATMENT: The patient could be considered for home discharge on oral tapering prednisone, oral antibiotics of doxycycline. Other supportive therapy, plan of management will continue as previously. Usual care. Other supportive plan of care and therapies. LUMA PATTON MD CM:PNTRANS [id number] LUMA VALDEZ MD 07/04/17 1053 interface
--- NOTE | ~2017-06-29 | EKG ---
[place], [place] ELECTROCARDIOGRAM REPORT NAME: PETE PASCUAL UNIT #: [id number] ROOM: 507 DOCTOR: POOJA VALDEZ MD,LUMA BIRTHDATE: [birth year] DOS: 06/29/2017 ELECTROCARDIOGRAM TIME: 10:08 a.m. Mild sinus tachycardia noted with heart rate of 108 beats per minute. Right atrial enlargement was also noted. LUMA PATTON MD CM:EKGRPT:ELECTROCARDIOGRAM REPORT [id number] LUMA VALDEZ MD
--- NOTE | ~2017-06-29 | CON ---
[place], [place] REPORT OF CONSULTATION NAME: PETE PASCUAL [facility] #: [id number] UNIT #: [id number] ROOM: 507 DOCTOR: LUMA HER MD BIRTHDATE: [birth year] DOS: 06/30/2017 PULMONARY CONSULTATION EVALUATION AND MANAGEMENT CONSULTATION REQUESTED BY: Hospitalist services. REASON FOR CONSULTATION: Exacerbation of COPD. HISTORY OF PRESENT ILLNESS: A 52-year-old white female who has been noted with history of advanced centrilobular emphysema with recent diagnosis of common variable hypogammaglobulinemia. The patient is supposedly to be started on intravenous gamma globulins awaiting for insurance authorization for that. She was seen in my office last week rather this week. She has been noted with symptoms of cough, which has been described for this patient and stated that she did not expectorate any sputum. With that, she was complaining of symptoms of shortness of breath. She came into the Emergency Room for further assessment currently being admitted to the hospital for further medical management. She was also admitted with symptoms of increased wheezing. The patient occurring with exertion with tightness in the chest. There were no symptoms of chest pain, shortness of breath occurred with current episode as well as with exertion. She has been admitted to the hospital, started on intravenous steroids, antibiotics, resulting in reduction of the respiratory symptoms. REVIEW OF SYSTEMS: CONSTITUTIONAL: Fatigue, tiredness. The patient with symptoms of fatigue. There were no symptoms of fever or chills or any abdominal weight loss. EYES: Denies any burning, redness, or tenderness. EARS, NOSE, AND THROAT: No sore throat, hoarseness, otalgia, postnasal drainage. CARDIOVASCULAR: Denies anginal pain, edema, pain of the lower extremities. GASTROINTESTINAL: Dysphagia, nausea, vomiting, diarrhea, abdominal pain, hematemesis, melena or stool incontinence. GENITOURINARY: Denies dysuria, suprapubic pain, hematuria. MUSCULOSKELETAL: Denies acute joint pain, redness, or tenderness. CENTRAL NERVOUS SYSTEM: Denies dizziness, headache, diplopia, syncopal episodes. The remaining systems were reviewed with the patient, they were noted all negative. PAST MEDICAL HISTORY: 1. Known with a history of centrilobular emphysema. 2. 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 3. Protein-calorie malnutrition. 4. Vitamin D deficiency. 5. Essential hypertension. 6. Severe general anxiety disorder. PAST SURGICAL HISTORY: 1. Sinus surgery. 2. . [place], [place] REPORT OF CONSULTATION NAME: PETE PASCUAL UNIT #: [id number] ROOM: 507 DOCTOR: LUMA HER MD BIRTHDATE: [birth year] 3. Therapeutic bronchoscopies in the past, last bronchoscopy March 2017. SOCIAL HISTORY: The patient lives at home. She denies history of alcohol or illicit drug use. She recently stopped working because of current pulmonary disability. Job has been exposed to ____ previously at her job. Smoking cigarettes had been noted age of [age] years old, about half to a pack of cigarettes per day that has been completely discontinued in the beginning of 2016. History of alcohol and illicit drug use. FAMILY HISTORY: Both parents has been . The father at 65 years complication of COPD. Mother at 79 due to complications related to pneumonia. MEDICATIONS: The current administered medication the patient noted as use of IV Solu-Medrol 40 mg q.8h., Norvasc, citalopram, nicotine, montelukast, loratadine, Flonase, hydroxyzine, Mucinex, which is Tessalon Perles and other p.r.n. medications. She was also known previous use at home Advair and the Spiriva. The patient in the past, she also had history of long-term prednisone 10 mg daily. ALLERGIES: 1. THE DRUG ALLERGY HISTORY WAS NOTED ALLERGIES TO THE SULFA DRUG. 2. MUCINEX 3. CLINDAMYCIN. 4. BACTRIM. 5. AZITHROMYCIN. 6. AMOXICILLIN. PHYSICAL EXAMINATION: GENERAL: This is a 52-year-old female who has been currently resting comfortably on her bed. Does not appear to be very anxious, stated she has been feeling better since yesterday. VITAL SIGNS: Recorded by the nursing staff as height of 5 feet 3 inches. Weight has not been documented as yet. Vital signs which were recorded. Temperature was noted normal, respiratory rate 18, heart rate 114-123, blood pressure 100/70-105/64. HEENT: Examination shows head was atraumatic. Eyes nonicterus. NECK: Supple. CARDIOVASCULAR: S1, S2 audible. LUNGS: Moderate decreased breath sounds, mild expiratory wheezing. There were no crackles. ABDOMEN: Soft, nontender. EXTREMITIES: Shows no edema, clubbing or cyanosis. LABORATORY DATA: CBC that was done on 06/29/2017 on admission, was noted with a normal CBC. PT/PTT of the patient yesterday were noted normal on admission. CMP of the patient that was done on showed normal BUN and creatinine. Carbon dioxide 33. CBC of patient of 06/30, WBC count was 12.7, hemoglobin and hematocrit was normal, platelet count was normal. BMP done on 06/29/2017 on admission were noted as normal, BUN 28. Creatinine previously known as normal [place], [place] REPORT OF CONSULTATION NAME: PETE PASCUAL UNIT #: [id number] ROOM: [facility] DOCTOR: LUMA HER MD BIRTHDATE: [birth year] yesterday. IMPRESSION: 1. The patient who had been currently re-admitted to the hospital noted with acute exacerbation of chronic obstructive pulmonary disease. I do not believe the patient has any active pulmonary infection at this time, thus exacerbation of chronic obstructive pulmonary disease would simply noted. 2. Acute end-stage renal failure. 3. Common variable hypogammaglobulinemia. 4. Anxiety disorder. 5. Dependency of prednisone 10 mg daily. 6. Chronic prednisone 10 mg daily PLAN OF TREATMENT: Continue dose of the Solu-Medrol the dose has been decreased to 40 mg b.i.d. Close observation of the symptoms. Continue bronchodilators every 4 hours. Discontinue antibiotic which was started on this patient. Unless there is clear cut evidence of infection noted with the patient, the patient could be started accordingly to the antibiotics at that that time. The chest x-ray does not show any acute glomerular filtration. Hyperinflation of the lung was noted. Monitor respiratory status closely. Potential discharge in the next 24-48 hours, would be considered. Currently, the patient has been planned to the transplant center. Since, the patient recently ____ getting change soon if the information will be available the appropriate further will be made accordingly. Alpha 1 antitrypsin level which has been done previously was noted normal in this patient. Thanks for allowing me to participate in the care of this patient. LUMA PATTON MD CM:CONSTR:REPORT OF CONSULTATION 1134 06/30/17 2307 interface
--- NOTE | ~2017-06-29 | PR ---
[place], [place] PROGRESS NOTE NAME: PETE PASCUAL [facility] #: [id number] UNIT #: [id number] ROOM: 507 DOCTOR: POOJA VALDEZ MD,LUMA BIRTHDATE: [birth year] DOS: 07/02/2017 SUBJECTIVE: She has reported reduction in symptoms of cough and shortness of breath in the last 24 hours. The steroid dose was increased yesterday. She was started on oral antibiotics as well. She has not had any sputum expectoration. OBJECTIVE: VITAL SIGNS: Normal temperature, respiratory rate 18, heart rate 101, blood pressure 134/77. The pulse oxygen saturation recorded on 3 liters nasal cannula 96% saturation. HEENT: No new change. NECK: Supple. CARDIOVASCULAR SYSTEM: S1, S2 audible. LUNGS: Noted without any wheezing or crackles at the present time. ABDOMEN: Soft, nontender. LABORATORY DATA: CBC today: WBC count 13,000, mild anemia, normal platelet count. BMP this morning, BUN 21, creatinine was normal. IMPRESSION: The patient with resolving leukocytosis, acute exacerbation of chronic obstructive pulmonary disease, possibility of acute bacterial bronchitis as well. PLAN OF TREATMENT: No changes in the plan of care. The patient at this time continue current therapy, plan and management previously in progress. Usual care, other supportive care and therapies. LUMA PATTON MD CM:PNTRANS [phone] LUMA VALDEZ MD 07/02/172236 interface
--- NOTE | ~2017-06-29 | PR ---
[place], [place] PROGRESS NOTE [id number] #: [id number] ROOM: 507 DOCTOR: POOJA VALDEZ MD,LUMA BIRTHDATE: [birth year] DOS: 07/03/2017 SUBJECTIVE: She has been noted comfortable at this time. Reduction of the symptoms of coughing, shortness of breath was noted. The patient denies symptoms of chest pain or hemoptysis. OBJECTIVE: VITAL SIGNS: Normal temperature, respiratory rate 18, heart rate 94, blood pressure 129/81. Pulse ox saturation on 3 liters nasal cannula 97% saturation. HEENT: Showed no new change. NECK: Supple. CARDIOVASCULAR: S1, S2 audible. LUNGS: Noted without any wheeze or crackles. The breaths are noted generally diminished bilaterally. ABDOMEN: Soft, nontender. LABORATORY DATA: CBC: WBC count today was noted at 13.4. The culture of the sputum preliminary showing normal aguilar, final culture results were pending. IMPRESSION: Resolving acute exacerbation of chronic obstructive pulmonary disease with acute tracheobronchitis at the present time responding to treatment very well, reduction of the respiratory symptoms has been continued gradually. PLAN OF TREATMENT: Decrease the Solu-Medrol dose from 40 mg q.8h. to 40 mg b.i.d. Continue other supportive therapy, plan and management as in progress. Usual care, other supportive plan of treatment as well. Possible discharge consideration for tomorrow if the patient does well with the reduction of the corticosteroids. LUMA PATTON MD CM:PNTRANS [phone] LUMA VALDEZ MD 07/03/17 1441 interface
[~2017-06-29 09:39] MED LIST changes: +CEFUROXIME AXE250 MG PO; +CELEXA20 MG PO; +Clotrimazole Tr10 MG MM; +NICODERM CQ1 EAC1 TD; +OXYGEN NAS; +PROAIR HFA8.5 GM INH; +SINGULAIR10 M1 PO; +VITAMIN C500 M4 PO; +VITAMIN E400 UNI3 PO; +ZINC CHELATED50 M2 PO
[2017-06-29 09:50] VITALS: BP 146/98
[2017-06-29 10:15] LABS: BASO % 0.3 % (0.0-1.0); EOS # 0.2 10*3/uL (0.0-0.4); EOS % 1.9 % (1.0-4.0); HEMATOCRIT 41.3 % (37.0-47.0); HEMOGLOBIN 13.6 g/dl (12.0-16.0); LYMPH # 1.5 10*3/uL (1.3-4.4); LYMPH % 13.6 % (27.0-41.0); MEAN CELL VOLUME 92.8 fl (81.0-99.0); MEAN CORPUSCULAR HGB 30.6 pg (27.0-31.0); MEAN CORPUSCULAR HGB CONC 32.9 g/dl (33.0-37.0); MEAN PLATELET VOLUME 9.4 fl (9.6-12.3); MONO # 0.5 10*3/uL (0.1-1.0); NEUT # 8.4 10*3/uL (2.3-7.9); NEUT % 78.5 % (47.0-73.0); PLATELET COUNT AUTOMATED 259 10*3/uL (130-400); RED BLOOD COUNT 4.45 10*6/uL (4.10-5.10); RED CELL DISTRI WIDTH 13.3 % (0-14.5); WHITE BLOOD COUNT 10.7 10*3/uL (4.8-10.8)
[2017-06-29 10:24] LABS: ACT PARTIAL THROMBO TIME 23.6 SECONDS (20.8-31.5)
[2017-06-29 10:28] LABS: ALBUMIN 3.8 gm/dl (3.1-4.5); BUN 7 mg/dl (7-24); CHLORIDE 101 mmol/L (98-107); POTASSIUM 4.3 mmol/L (3.5-5.1); SODIUM 143 mmol/L (136-145)
[2017-06-29 10:30] VITALS: BP 128/82
--- NOTE | 2017-06-29 10:36 | NUR ---
STUDENT AT BEDSIDE. REPOSITIONED FOR COMFORT. SPO2 99 ON 4L PER NC.
[2017-06-29 11:27] LABS: ALKALINE PHOSPHATASE 48 U/L (45-117); CREATININE 0.75 mg/dL (0.55-1.02); SGOT/AST 12 IU/L (3-35); SGPT/ALT 20 U/L (12-78); TOTAL PROTEIN 6.8 gm/dL (6.4-8.2); TROPONIN I < 0.015 ng/ml (<0.045)
[2017-06-29 11:42] VITALS: BP 144/86
--- NOTE | 2017-06-29 11:47 | NUR ---
PT STABLE AND READY FOR TRANSPORT TO INPATIENT ROOM #441-2
--- NOTE | 2017-06-29 12:00 | NUR ---
A 52, admitted to , under the services of JASBIR Walton DO with a diagnosis of ACUTE EXACERBATION OF COPD. Chief complaint is SHORTNESS OF BREATH. Patient arrived via CART WITH RN from ER. Monitor applied. Initial assessment completed. Vital signs taken and recorded. JASBIR WALTON DO notified of admission to the unit. Orders received. See assessment for past medical history, medications and allergies. Patient and/or family oriented to unit. [facility] visitation policy reviewed. Clothing/patient valuable form completed. MIA RAVI
[2017-06-29] MEDS ORDERED: AMLODIPINE BESYL5 MG PO (12:11)
[2017-06-29] MEDS ORDERED: HYDROXYZINE HCL25 MG PO (12:20)
[2017-06-29] MEDS ORDERED: ATIVAN0.5 MG PO (12:23)
--- NOTE | 2017-06-29 12:26 | NUR ---
MED RECONCILIATION COMPLETED VIA MED LIST FROM PHARMACY IN CONJUNCTION WITH MEDS PT HAS WITH HER IN ZIPLOC BAG. MEDS ARE BEING SENT HOME WITH PT'S .
[2017-06-29 16:00] VITALS: BP 117/66
--- NOTE | 2017-06-29 16:17 | NUR ---
SPOKE TO DR PATTON REGARDING NEW PT CONSULT. ORDER TO DISCONTINUE IV FLUIDS AND CHANGE DOSE OF IV SOLU MEDROL RECEIVED. DR PATTON STATES HE WILL SEE PT IN THE MORNING.
[2017-06-29 20:00] VITALS: BP 102/63
--- NOTE | 2017-06-29 20:45 | NUR ---
IN BED AWAKE ALERT AND ORIENTED X3, NO C/O. WHEEZES NOTED T/O. HR 120 PER CM. WILL CONT TO MONITOR. CALL LIGHT IN REACH.
[2017-06-30] VITALS: BP 105/64
--- NOTE | 2017-06-30 00:08 | NUR ---
PT GIVEN PO ATIVAN FOR C/O ANXIETY. WILL CONT TO MONITOR. CALL LIGHT IN REACH.
--- NOTE | 2017-06-30 01:08 | NUR ---
PT RESTING QUIETLY AT THIS TIME. NOT AWAKEN PER POLICY. WILL CONT TO MONITOR.
[2017-06-30 06:34] LABS: BASO % 0.2 % (0.0-1.0); HEMOGLOBIN 11.8 g/dl (12.0-16.0); LYMPH # 1.1 10*3/uL (1.3-4.4); LYMPH % 8.4 % (27.0-41.0); MEAN CELL VOLUME 91.6 fl (81.0-99.0); MEAN CORPUSCULAR HGB CONC 33.8 g/dl (33.0-37.0); MONO # 0.7 10*3/uL (0.1-1.0); MONO % 5.1 % (3.0-9.0); NEUT # 10.9 10*3/uL (2.3-7.9); NEUT % 85.6 % (47.0-73.0); PLATELET COUNT AUTOMATED 245 10*3/uL (130-400); RED BLOOD COUNT 3.81 10*6/uL (4.10-5.10); RED CELL DISTRI WIDTH 13.2 % (0-14.5); WHITE BLOOD COUNT 12.7 10*3/uL (4.8-10.8)
[2017-06-30 06:35] LABS: HEMATOCRIT 34.9 % (37.0-47.0)
[2017-06-30 07:01] LABS: BUN 13 mg/dl (7-24); CHLORIDE 104 mmol/L (98-107); CREATININE 0.65 mg/dL (0.55-1.02); POTASSIUM 3.6 mmol/L (3.5-5.1); SODIUM 141 mmol/L (136-145)
[2017-06-30 07:02] LABS: PHOSPHOROUS 3.7 mg/dL (2.5-4.9)
[2017-06-30 08:00] VITALS: BP 100/70; BP 103/36
--- NOTE | 2017-06-30 08:30 | NUR ---
PATIENT IN ROOM LYING IN BED. PATIENT WITH EXP. WHEEZES, NO EDEMA. PATIENT WITH OXYGEN 3LPM INTACT VIA NC. OCC. COUGH NOTED.
[2017-06-30 12:00] VITALS: BP 98/80
[2017-06-30 16:00] VITALS: BP 127/83
[2017-06-30 20:00] VITALS: BP 154/94
[2017-07-01] VITALS: BP 122/58
[2017-07-01 06:26] LABS: BASO % 0.1 % (0.0-1.0); HEMATOCRIT 35.6 % (37.0-47.0); HEMOGLOBIN 11.7 g/dl (12.0-16.0); LYMPH # 1.1 10*3/uL (1.3-4.4); LYMPH % 6.3 % (27.0-41.0); MEAN CORPUSCULAR HGB 30.2 pg (27.0-31.0); MEAN CORPUSCULAR HGB CONC 32.9 g/dl (33.0-37.0); MEAN PLATELET VOLUME 10.2 fl (9.6-12.3); MONO % 5.5 % (3.0-9.0); NEUT # 15.1 10*3/uL (2.3-7.9); PLATELET COUNT AUTOMATED 258 10*3/uL (130-400); RED BLOOD COUNT 3.87 10*6/uL (4.10-5.10); RED CELL DISTRI WIDTH 13.3 % (0-14.5); WHITE BLOOD COUNT 17.4 10*3/uL (4.8-10.8)
[2017-07-01 07:03] LABS: ALBUMIN 3.5 gm/dl (3.1-4.5); BUN 19 mg/dl (7-24); CHLORIDE 102 mmol/L (98-107); CREATININE 0.74 mg/dL (0.55-1.02); POTASSIUM 4.1 mmol/L (3.5-5.1); SGOT/AST 10 IU/L (3-35); SGPT/ALT 17 U/L (12-78); SODIUM 141 mmol/L (136-145)
[2017-07-01 07:04] LABS: ALKALINE PHOSPHATASE 38 U/L (45-117); TOTAL PROTEIN 5.8 gm/dL (6.4-8.2)
[2017-07-01 08:00] VITALS: BP 101/74
[2017-07-01 12:00] VITALS: BP 119/81
[2017-07-01 16:00] VITALS: BP 130/76
[2017-07-01 20:00] VITALS: BP 131/75
--- NOTE | 2017-07-01 20:00 | NUR ---
ASSUMED CARE OF PATIENT. ASSESSMENT COMPLETE. RESTING IN BED. NO VOICED COMPLAINTS. CALL LIGHT IN REACH. WILL CONTINUE TO MONITOR.
--- NOTE | 2017-07-01 20:45 | NUR ---
PT RECEIVED OCEAN SPRAY FOR DRY NOSTRILS.
--- NOTE | 2017-07-01 22:08 | NUR ---
PT RECEIVED ATIVAN FOR ANXIETY.
[2017-07-02] VITALS: BP 112/83
--- NOTE | 2017-07-02 02:00 | NUR ---
SLEEPING. O2 INTACT, NO DISTRESS NOTED. CM INTACT. CALL LIGHT IN REACH. WILL CONTINUE TO MONITOR.
[2017-07-02 06:28] LABS: BASO % 0.2 % (0.0-1.0); HEMATOCRIT 34.9 % (37.0-47.0); HEMOGLOBIN 11.4 g/dl (12.0-16.0); LYMPH % 7.6 % (27.0-41.0); MEAN CELL VOLUME 91.4 fl (81.0-99.0); MEAN CORPUSCULAR HGB 29.8 pg (27.0-31.0); MEAN CORPUSCULAR HGB CONC 32.7 g/dl (33.0-37.0); MEAN PLATELET VOLUME 10.4 fl (9.6-12.3); MONO # 0.6 10*3/uL (0.1-1.0); MONO % 4.8 % (3.0-9.0); NEUT # 11.1 10*3/uL (2.3-7.9); NEUT % 85.2 % (47.0-73.0); PLATELET COUNT AUTOMATED 242 10*3/uL (130-400); RED BLOOD COUNT 3.82 10*6/uL (4.10-5.10); RED CELL DISTRI WIDTH 13.2 % (0-14.5)
[2017-07-02 06:59] LABS: BUN 21 mg/dl (7-24); CHLORIDE 102 mmol/L (98-107); CREATININE 0.57 mg/dL (0.55-1.02); POTASSIUM 4.4 mmol/L (3.5-5.1); SODIUM 141 mmol/L (136-145)
[2017-07-02 08:00] VITALS: BP 134/77
--- NOTE | 2017-07-02 08:30 | NUR ---
Systems Analysis Manager in to talk to patient. Patient states lives at HOME ALONE with . There are 0 steps in the home. Physician: DR CRAWFORD Pharmacy: [facility] [place] Home health services: NONE Patient's level of ADLs: INDEPENDENT Patient has working utilities: YES DME: NEB/O2 FROM [facility], [place] Follow-up physician's appointment after d/c: WILL BE MADE PRIOR TO DC Does patient want to access PORTAL?: Discharge plan HOME. TAI GONSALES
[2017-07-02 12:00] VITALS: BP 138/86
--- NOTE | 2017-07-02 13:30 | NUR ---
PATIENT MEDICATED WITH ATIVAN AT THIS TIME PER ORDER FOR C/O AGITATION. WILL MONITOR FOR EFEFCTIVENESS.
[2017-07-02 16:00] VITALS: BP 123/85
[2017-07-02 20:00] VITALS: BP 136/99
--- NOTE | 2017-07-02 20:00 | NUR ---
ASSUMED CARE OF PATIENT. ASSESSMENT COMPLETE. SITTING UP ON SIDE OF BED. O2 INTACT. CALL LIGHT IN REACH. WILL CONTINUE TO MONITOR.
--- NOTE | 2017-07-02 20:41 | NUR ---
PT RECEIVED ATIVAN PRN FOR ANXIETY AND TIGHTNESS IN CHEST.
--- NOTE | 2017-07-02 21:30 | NUR ---
PT IS RESTING MORE COMFORTABLY AND LESS ANXIOUS.
[2017-07-03] VITALS: BP 141/89
[2017-07-03 07:04] LABS: HEMATOCRIT 36.1 % (37.0-47.0); MEAN CELL VOLUME 92.1 fl (81.0-99.0); MEAN CORPUSCULAR HGB 30.6 pg (27.0-31.0); MEAN CORPUSCULAR HGB CONC 33.2 g/dl (33.0-37.0); MEAN PLATELET VOLUME 10.3 fl (9.6-12.3); PLATELET COUNT AUTOMATED 250 10*3/uL (130-400); RED BLOOD COUNT 3.92 10*6/uL (4.10-5.10); RED CELL DISTRI WIDTH 13.2 % (0-14.5); WHITE BLOOD COUNT 13.4 10*3/uL (4.8-10.8)
[2017-07-03 07:25] LABS: PLATELET SUFFICIENCY NORMAL (NORMAL); TOTAL CELLS COUNTED 100 #CELLS
[2017-07-03 07:28] LABS: BUN 23 mg/dl (7-24); CHLORIDE 102 mmol/L (98-107); CREATININE 0.68 mg/dL (0.55-1.02); POTASSIUM 4.7 mmol/L (3.5-5.1); SODIUM 140 mmol/L (136-145)
[2017-07-03 08:00] VITALS: BP 129/81
[2017-07-03 12:00] VITALS: BP 136/84
[2017-07-03 16:00] VITALS: BP 145/95
[2017-07-03 20:00] VITALS: BP 137/79
--- NOTE | 2017-07-03 20:00 | NUR ---
ASSUMED CARE OF PATIENT. ASSESSMENT COMPLETE. RESTING IN BED. O2 INTACT. CALL LIGHT IN REACH. WILL CONTINUE TO MONITOR.
--- NOTE | 2017-07-03 22:05 | NUR ---
MEDICATED WITH PRN NORCO FOR C/O BACK PAIN. RATES 03/12
--- NOTE | 2017-07-03 23:30 | NUR ---
PER PATIENT, EARLIER NORCO EFFECTIVE
[2017-07-04] VITALS: BP 115/81
--- NOTE | 2017-07-04 02:00 | NUR ---
SLEEPING. NO DISTRESS NOTED. O2 INTACT. CM INTACT. CALL LIGHT IN REACH. WILL CONTINUE TO MONITOR.
[2017-07-04 08:00] VITALS: BP 113/74
[2017-07-04] MEDS ORDERED: DOXYCYCLINE100 M3 PO (10:03)
[2017-07-04] MEDS ORDERED: PREDNISONE10 MG PO (10:03)
--- NOTE | 2017-07-04 11:48 | NUR ---
MEDICATED WITH DULCOLAX FOR CONSTIPATION.
[2017-07-04] MEDS ORDERED: NICODERM CQ1 EAC1 T (11:56)
--- NOTE | 2017-07-04 13:46 | NUR ---
PT STATES SHE IS CONTSTIPATED AND THAT IT IS MAKING HER SOB. PRN MEDS NOT EFFECTIVE PER PT. DR. PLUMMER NOTIFIED.
[2017-07-04] MEDS ORDERED: OMEPRAZOLE D/R20 MG PO (15:02)
--- NOTE | 2017-07-04 16:18 | NUR ---
PT DISCHARGED HOME VIA WHEELCHAIR. HEPLOCK DISCONTINUED. F/U CARE ARRANGED PER PT. HEPLOCK DISCONTINUED.
== END 2017-07-04 16:18 | disposition home or self-care (01) | DRG 871 ==
LOC: ED 09:39 → 5E 10:53 → EDHOLD 10:53 → 5E 11:09
PROVIDERS: Emergency Medicine; Family Medicine; Internal Medicine; Internal Medicine Nephrology; ADMIT Internal Medicine
DX: A41.9 Sepsis, unspecified organism (principal); J18.9 Pneumonia, unspecified organism; J96.01 Acute respiratory failure with hypoxia; I12.0 Hypertensive chronic kidney disease with stage 5 chronic kidney disease or end stage renal disease; D80.1 Nonfamilial hypogammaglobulinemia; N18.6 End stage renal disease; J44.0 Chronic obstructive pulmonary disease with (acute) lower respiratory infection; J44.1 Chronic obstructive pulmonary disease with (acute) exacerbation; J20.9 Acute bronchitis, unspecified; F41.1 Generalized anxiety disorder; E55.9 Vitamin D deficiency, unspecified; F17.210 Nicotine dependence, cigarettes, uncomplicated; Z79.899 Other long term (current) drug therapy; Z88.1 Allergy status to other antibiotic agents; Z88.2 Allergy status to sulfonamides; Z99.81 Dependence on supplemental oxygen; Z71.6 Tobacco abuse counseling; Z88.8 Allergy status to other drugs, medicaments and biological substances; Z82.49 Family history of ischemic heart disease and other diseases of the circulatory system; Z83.3 Family history of diabetes mellitus; Z72.89 Other problems related to lifestyle

== ENCOUNTER → 2017-07-24 | Day surgery (SDC) | payer MEDICAID ==
[~2017-07-24] MED LIST changes: +AMLODIPINE BESYL5 MG PO; +GENERLAC10 GM/15 M PO; +HYDROXYZINE HCL25 MG PO; +NICODERM CQ1 EAC1 T; +OMEPRAZOLE D/R20 MG PO; +TUMS200 MG PO; +ULTRAM50 MG PO
[2017-07-24 09:00] VITALS: BP 108/75
== END | disposition home or self-care (01) ==
LOC: IV THERAPY 01:35
DX: D83.8 Other common variable immunodeficiencies (principal)

== ENCOUNTER → 2017-07-30 | Day surgery (SDC) | payer MEDICAID ==
[~2017-07-30] VITALS: Ht 160 cm; Wt 54.4 kg
[~2017-07-30] MED LIST changes: -GENERLAC10 GM/15 M PO; -TUMS200 MG PO
[2017-07-30 09:01] VITALS: BP 140/80
[2017-07-30 11:28] VITALS: BP 117/79
[2017-07-30 11:41] VITALS: BP 123/84
[2017-07-30 12:05] VITALS: BP 111/79
== END | disposition home or self-care (01) ==
LOC: SDC 07-13 10:15
DX: Z45.2 Encounter for adjustment and management of vascular access device (principal); I10 Essential (primary) hypertension; J43.9 Emphysema, unspecified; K21.9 Gastro-esophageal reflux disease without esophagitis; F41.9 Anxiety disorder, unspecified; F17.210 Nicotine dependence, cigarettes, uncomplicated; Z88.1 Allergy status to other antibiotic agents; Z88.8 Allergy status to other drugs, medicaments and biological substances; Z98.890 Other specified postprocedural states; Z82.49 Family history of ischemic heart disease and other diseases of the circulatory system

== ENCOUNTER 2017-08-13 19:08 | Inpatient (IN) | payer OTHER ==
[~2017-08-13] VITALS: Ht 160 cm; Wt 57.8 kg
--- NOTE | ~2017-08-13 | CON ---
[place], [place] REPORT OF CONSULTATION NAME: PETE PASCUAL [facility] #: [id number] UNIT #: [id number] ROOM: 401 DOCTOR: LUMA HER MD BIRTHDATE: [birth year] DOS: 08/14/2017 CONSULTATION REQUESTED BY: Hospitalist services. REASON FOR CONSULTATION: For assessment of shortness of breath. HISTORY OF PRESENT ILLNESS: A 52-year-old white female who has been noted with history of advanced COPD for this patient and chronic hypoxic respiratory failure, recently diagnosed with common variable hypogammaglobulinemia, had received one dose of intravenous gamma globulins last week of 07/2017. The patient also has a MediPort inserted in the right chest by the surgeon last month as well. She has contacted my office and stating symptoms of coughing with shortness of breath that has occurred at home. She has been called and the doxycycline 100 mg p.o. b.i.d. The patient started using the medication and noted with increased shortness of breath. She came into the hospital by EMS because of increasing shortness of breath. She was complaining of some generalized weakness. The cough has been noted mild at this time without any sputum expectoration. She does have some wheezing at time, but not noted severe wheezing. Denies symptoms of abdominal pain. She has been seen in the Emergency Room on 08/13/2017 and hospitalized for further medical management. The patient came into the hospital by her own Private car. REVIEW OF SYSTEMS: CONSTITUTIONAL: Fatigue and tiredness reported. Denies any symptoms of fever or chills. EYES: Denies any burning, redness, tenderness. EARS, NOSE, THROAT: No sore throat, hoarseness, otalgia, postnasal drainage or epistaxis. CARDIOVASCULAR: Denies angina pain, edema, pain of the lower extremity. GASTROINTESTINAL: She was complaining of symptoms of gastroesophageal reflux, which has been treated previously with omeprazole. She was complaining of having increased symptoms of gastroesophageal reflux recently as the patient finished using the medication previously. Denies any symptoms of hematemesis, melena, or hematochezia. GENITOURINARY: No dysuria, suprapubic pain, hematuria. MUSCULOSKELETAL: Acute joint pain, redness, tenderness. SKIN: No lesions or rashes described. The patient was noted with loss of hair intermittently at this time, which has been recently reported in the past few months. CENTRAL NERVOUS SYSTEM: No dizziness, headache, diplopia, syncopal episodes. Remaining systems were reviewed. They were noted all negative. The past medical history, surgical history, social history, family history are reviewed and remains unchanged except the MediPort insertion in surgical history. All the past history has reviewed with the patient since consultation, which was completed on 06/30/2017 and otherwise remains unchanged. Refer to the document in the [facility] for further reference. [place], [place] REPORT OF CONSULTATION NAME: PETE PASCUAL UNIT #: [id number] ROOM: 401 DOCTOR: POOJA VALDEZ MD,LUMA BIRTHDATE: [birth year] MEDICATIONS: The current medication administered noted a use of calcium carbonate, vitamin C, nicotine replacement patches, Singulair, loratadine, Solu-Medrol intravenously 60 mg b.i.d., omeprazole 20 mg daily, tramadol 50 mg q.6 hours p.r.n. for pain, Norvasc 5 mg daily, Levaquin, and other p.r.n. medications administration. DRUG ALLERGIES: 1. SULFA DRUGS. 2. MUCINEX. 3. CLINDAMYCIN. 4. AZITHROMYCIN. 5. AMOXICILLIN. 6. FORADIL. PHYSICAL EXAMINATION: GENERAL: A 52-year-old white female who is currently noted awake and alert, sitting on the bed without any acute distress. The patient's height recorded by the nursing staff on admission with height of 5 feet 3 inches, weight of 127, BMI 22.7. VITAL SIGNS: Normal temperature, respiratory rate of 18-20, heart rate 116-117, blood pressure of 107/67-140/80. HEENT: Examination shows head was atraumatic. Eyes nonicterus. NECK: Supple. CARDIOVASCULAR: S1, S2 audible. LUNGS: The patient was noted with moderate reduction of the breath sounds with mild to moderate expiratory wheezing in the lungs. ABDOMEN: Soft, nontender and flat. Bowel sounds present. EXTREMITIES: Without any edema, clubbing, cyanosis. CENTRAL NERVOUS SYSTEM: Cranial nerves 2-12 intact. MUSCULOSKELETAL: No deformities. LABORATORY DATA: CBC on 08/13/2017 was normal. CBC of this morning: WBC count 3.5, otherwise normal. CMP of 08/13/2017 on admission normal except CO2 38. CMP of this morning showed glucose 135, CO2 33, remaining CMP normal. PT, PTT for the patient this morning was normal. Chest x-ray, 1 view, MediPort noted currently in place in the right chest with changes of COPD without any acute pulmonary infiltration. IMPRESSION: 1. The patient has been noted with current acute exacerbation of chronic obstructive pulmonary disease with possibility of acute bacterial bronchitis as well. 2. Common variable hypergammaglobulinemia with recent supplementation started with gamma globulin infusions from 07/2017. 3. History of general anxiety disorder. 4. Essential hypertension. 5. History of allergic rhinitis. PLAN OF MANAGEMENT: Continuation of current therapy, plan of management with [place], [place] REPORT OF CONSULTATION NAME: PETE PASCUAL UNIT #: [id number] ROOM: [facility] DOCTOR: LUMA HER MD BIRTHDATE: [birth year] use of the corticosteroids, bronchodilators, and antibiotics. Antibiotic may be considered for discontinuation if the preliminary culture showed no bacterial infection, isolation of organism. The Solu-Medrol dose might be decreased tomorrow. Possible consideration of discharge might depends on further rapid improvement in the respiratory status in the next couple of days. Usual care, other supportive plan of therapy management and care. Thanks for allowing me to participate in the care of this patient. LUMA PATTON MD CM:CONSTR:REPORT OF CONSULTATION 1124 08/14/17 1314 interface
--- NOTE | ~2017-08-13 | EKG ---
[place], [place] ELECTROCARDIOGRAM REPORT NAME: PETE PASCUAL UNIT #: [id number] ROOM: [facility] DOCTOR: POOJA VALDEZ MD,LUMA BIRTHDATE: [birth year] DOS: 08/13/2017 The electrocardiogram was done on 08/13/2017, at 8:02 p.m. Sinus tachycardia noted, heart rate 140 beats per minute. Right atrial enlargement was noted. LUMA PATTON MD CM:EKGRPT:ELECTROCARDIOGRAM REPORT [id number] LUMA VALDEZ MD
--- NOTE | ~2017-08-13 | PR ---
[place], [place] PROGRESS NOTE NAME: PETE PASCUAL [facility] #: [id number] UNIT #: [id number] ROOM: 401 DOCTOR: POOJA VALDEZ MD,LUMA BIRTHDATE: [birth year] DOS: 08/17/2017 SUBJECTIVE: The patient has been noted without any ongoing or new complaints at this time. She has been noted comfortable. She stated that her constipation is better as the patient was given lactulose yesterday. Shortness of breath and cough, all her symptoms improving. OBJECTIVE: VITAL SIGNS: Normal temperature, respiratory rate 20, heart rate 81, blood pressure 123/71. Pulse oxygen saturation recorded on 2 liters nasal cannula 98% saturation. HEENT: No acute change. NECK: Supple. CARDIOVASCULAR: S1, S2 audible. LUNGS: The patient was noted without any wheeze or crackle at the present time. ABDOMEN: Soft, nontender. EXTREMITIES: Without any acute edema. IMPRESSION: 1. Resolving acute exacerbation of chronic obstructive pulmonary disease with improvement. Shortness of breath and cough. 2. General anxiety disorder. 3. Tachycardia secondary to anxiety and exacerbation of chronic obstructive pulmonary disease as well. PLAN OF TREATMENT: The patient could be considered for home discharge from the pulmonary standpoint, tapering dose of prednisone and completion of the antibiotic therapy as an outpatient orally. Continue to maximize the other medical management. LUMA PATTON MD CM:PNTRANS [phone] LUMA VALDEZ MD 08/17/17 1401 interface
--- NOTE | ~2017-08-13 | PR ---
[place], [place] PROGRESS NOTE NAME: PETE PASCUAL [facility] #: [id number] UNIT #: [id number] ROOM: 401 DOCTOR: POOJA VALDEZ MD,LUMA BIRTHDATE: [birth year] DOS: 08/15/2017 SUBJECTIVE: She has been noted comfortable at this time without any distress at this time. Using the oxygen supplementation. Also, using the bronchodilators. The wheezing has been noted decreased. The coughing was also resolving. She was complaining of constipation symptoms as well. OBJECTIVE: VITAL SIGNS: Show normal temperature, respiratory rate 20, heart rate 115, blood pressure 116/84. The pulse oxygen saturation on 2 liters nasal cannula 98% saturation. HEENT: Examination shows no acute change. NECK: Supple. CARDIOVASCULAR: S1, S2 is audible. LUNGS: The patient was noted without any wheeze or crackle at the present time. ABDOMEN: Soft, nontender. IMPRESSION: The patient with resolving acute exacerbation of chronic obstructive pulmonary disease, acute tracheobronchitis gradually. PLAN OF MANAGEMENT: Continuation of the current plan of therapy for this patient at the present time with the corticosteroids and bronchodilators. She was encouraged about ambulation for assessment and possible consideration for discharge in the morning. LUMA PATTON MD CM:PNTRANS [id number] LUMA VALDEZ MD 08/15/17 1247 interface
--- NOTE | ~2017-08-13 | PR ---
[place], [place] PROGRESS NOTE NAME: PETE PASCUAL UNIT #: [id number] ROOM: 401 DOCTOR: LUMA HER MD BIRTHDATE: [birth year] DOS: 08/16/2017 SUBJECTIVE: She has been noted comfortable at this time, but complaining of symptoms of constipation. The patient denies any symptoms of chest pain, shortness of breath occurs with exertion. The patient denies any significant cough. There was no wheezing reported. OBJECTIVE: VITAL SIGNS: Normal temperature, respiratory rate 20, heart rate of 107. The blood pressure 119/77. Pulse oxygen saturation on 3 liters cannula 99% saturation. HEENT: Showed no acute change. NECK: Supple. CARDIOVASCULAR: S1, S2 audible. LUNGS: The patient was noted without any crackles. There was no wheezing noted. ABDOMEN: Soft, nontender. EXTREMITIES: Without any acute edema. IMPRESSION: 1. The patient with acute exacerbation of chronic obstructive pulmonary disease with acute tracheobronchitis tachycardia related to exacerbation of chronic obstructive pulmonary disease and generalized anxiety disorder and other factors. 2. Acute chronic constipation dependent on the medication for the constipation was noted. 3. Gastroesophageal reflux. PLAN OF TREATMENT: Decrease the Solu-Medrol dose to 40 mg b.i.d. The patient would be recommended about obtaining the GI consultation for her chronic abdominal problems as well. In the meantime, all other supportive therapy, plan of management to be continued. Ambulation was encouraged as use of the oxygen. Supportive care and other therapy, plan of management. [place], [place] PROGRESS NOTE NAME: PETE PASCUAL UNIT #: [id number] ROOM: 401 DOCTOR: LUMA HER MD BIRTHDATE: [birth year] LUMA PATTON MD CM:PNTRANS [id number] LUMA VALDEZ MD 08/16/17 1338 interface
[2017-08-13 19:15] VITALS: BP 117/82
[2017-08-13 20:07] LABS: BASO % 0.6 % (0.0-1.0); EOS # 0.1 10*3/uL (0.0-0.4); EOS % 1.9 % (1.0-4.0); HEMOGLOBIN 13.5 g/dl (12.0-16.0); LYMPH # 1.5 10*3/uL (1.3-4.4); LYMPH % 24.1 % (27.0-41.0); MEAN CELL VOLUME 89.7 fl (81.0-99.0); MEAN CORPUSCULAR HGB 29.5 pg (27.0-31.0); MEAN CORPUSCULAR HGB CONC 32.9 g/dl (33.0-37.0); MEAN PLATELET VOLUME 9.9 fl (9.6-12.3); MONO # 0.8 10*3/uL (0.1-1.0); MONO % 12.5 % (3.0-9.0); NEUT # 3.9 10*3/uL (2.3-7.9); NEUT % 60.3 % (47.0-73.0); PLATELET COUNT AUTOMATED 193 10*3/uL (130-400); RED BLOOD COUNT 4.57 10*6/uL (4.10-5.10); RED CELL DISTRI WIDTH 13.1 % (0-14.5); WHITE BLOOD COUNT 6.4 10*3/uL (4.8-10.8)
[2017-08-13 20:24] LABS: ALBUMIN 3.5 gm/dl (3.1-4.5); ALKALINE PHOSPHATASE 53 U/L (45-117); BUN 10 mg/dl (7-24); CHLORIDE 100 mmol/L (98-107); CREATININE 0.69 mg/dL (0.55-1.02); POTASSIUM 3.7 mmol/L (3.5-5.1); SGOT/AST 10 IU/L (3-35); SGPT/ALT 20 U/L (12-78); SODIUM 140 mmol/L (136-145); TOTAL PROTEIN 6.7 gm/dL (6.4-8.2)
[2017-08-13 20:25] LABS: TROPONIN I < 0.015 ng/ml (<0.045)
[2017-08-13 20:41] VITALS: BP 128/79
--- NOTE | 2017-08-13 21:49 | NUR ---
BEDSIDE COMMODE TAKEN TO PATIENT. PATIENT GIVEN EXTRA BLANKETS
--- NOTE | 2017-08-13 22:56 | NUR ---
NURSING REPORT GIVEN TO ALONZO THOMPSON
--- NOTE | 2017-08-13 23:08 | NUR ---
A 52, admitted to , under the services of JASBIR Walton DO with a diagnosis of COPD EXACERBATION. Chief complaint is SHORTNESS OF BREATH. Patient arrived via wheel chair from ER. Monitor applied. Initial assessment completed. Vital signs taken and recorded. JASBIR WALTON DO notified of admission to the unit. Orders received. See assessment for past medical history, medications and allergies. Patient and/or family oriented to unit. [facility] visitation policy reviewed. Clothing/patient valuable form completed. ALONZO BUCIO
[2017-08-13] MEDS ORDERED: TUMS200 MG PO (23:21)
[2017-08-13] MEDS ORDERED: PREDNISONE10 MG PO (23:24)
--- NOTE | 2017-08-13 23:26 | NUR ---
MED REC UPDATED WITH PATIENT ALERT AND ORIENTED TO PERSON PLACE AND TIME
[2017-08-13 23:30] VITALS: BP 144/93
--- NOTE | 2017-08-13 23:32 | NUR ---
DR PATTON AWARE OF CONSULT. NO ORDERS
[2017-08-14] VITALS: BP 144/93
--- NOTE | 2017-08-14 00:56 | NUR ---
DR FRANCOIS AWARE OF PATIENT BEING ANXIOUS. STATES WILL PUT SOMETHING IN
--- NOTE | 2017-08-14 01:16 | NUR ---
MEDICATED WITH PRN ATIVAN FOR C/O ANXIOUSNESS
[2017-08-14 04:00] VITALS: BP 107/67
--- NOTE | 2017-08-14 05:27 | NUR ---
PATIENT STATES ATIVAN WAS EFFECTIVE
[2017-08-14 07:37] LABS: BASO % 0.3 % (0.0-1.0); HEMATOCRIT 38.6 % (37.0-47.0); HEMOGLOBIN 12.5 g/dl (12.0-16.0); LYMPH # 0.5 10*3/uL (1.3-4.4); LYMPH % 13.4 % (27.0-41.0); MEAN CELL VOLUME 89.8 fl (81.0-99.0); MEAN CORPUSCULAR HGB 29.1 pg (27.0-31.0); MEAN CORPUSCULAR HGB CONC 32.4 g/dl (33.0-37.0); MEAN PLATELET VOLUME 10.7 fl (9.6-12.3); MONO # 0.1 10*3/uL (0.1-1.0); MONO % 2.9 % (3.0-9.0); NEUT # 2.9 10*3/uL (2.3-7.9); NEUT % 82.3 % (47.0-73.0); PLATELET COUNT AUTOMATED 201 10*3/uL (130-400); RED CELL DISTRI WIDTH 13.1 % (0-14.5); WHITE BLOOD COUNT 3.5 10*3/uL (4.8-10.8)
[2017-08-14 08:00] VITALS: BP 110/74; BP 118/74; BP 124/94
[2017-08-14 08:10] LABS: ACT PARTIAL THROMBO TIME 24.7 SECONDS (20.8-31.5); ALBUMIN 3.3 gm/dl (3.1-4.5); BUN 8 mg/dl (7-24); CHLORIDE 102 mmol/L (98-107); POTASSIUM 4.4 mmol/L (3.5-5.1); SGPT/ALT 18 U/L (12-78); SODIUM 140 mmol/L (136-145)
[2017-08-14 08:14] LABS: ALKALINE PHOSPHATASE 54 U/L (45-117); CREATININE 0.75 mg/dL (0.55-1.02); PHOSPHOROUS 3.5 mg/dL (2.5-4.9); SGOT/AST 13 IU/L (3-35); TOTAL PROTEIN 6.5 gm/dL (6.4-8.2)
--- NOTE | 2017-08-14 08:18 | NUR ---
PATIENT WAS PLEASANT AND COOPERATIVE, LYING ON HER LEFT SIDE, WATCHING THE SNOWFALL. NEHAL SMITH
--- NOTE | 2017-08-14 09:00 | NUR ---
PT RESTING IN BED WITH HOB ELEVATED. RESP-EASY AND REGULAR. OXYGEN IN USE. IVF INFUSING WITH NO PROBLEM. LUNG FT EXP WHEEZE NOTED THROUGHOUT. NO EDEMA,PPP,DENIES CP. PT REFUSES ASHANTI HOSE AT HTIS TIME. CALL LIGHT IN REACH. STUDENT NURSES WITH PT TODAY.
--- NOTE | 2017-08-14 09:00 | NUR ---
Can Cutter in to talk to patient. Patient states lives at home with alone. There are few steps in the home. Physician: jose Pharmacy: [facility] Home health services: none Patient's level of ADLs: INDEPENDENT Patient has working utilities: all working DME: home oxygen, portable tanks, nebulizer from [facility], [place] Follow-up physician's appointment after d/c: will be made by hospitalist nurse director upon discharg Does patient want to access PORTAL?: heidi Discharge plan discussed with patient, patient lives at home alone, she states she was independent in adls and ambulation until recently she has been sick, discussed with her a short term residential for rehab prior to going back home, she refused, stated she was going back home, also discussed VNA and she was receptive to this, given choice of companies, she chose [facility], nurse discharge planner will send referral to [facility] for when patient is medically stable for discharge. TRUE LUEVANO
--- NOTE | 2017-08-14 10:10 | NUR ---
PATIENT MEDIPORT SITE BRUISED, THERE IS NO VISABLE DRAINAGE. GIVEN MEDICATION TO HELP MOVE HER BOWELS. NEHAL LEAVITT SPNRCC
[2017-08-14 12:00] VITALS: BP 124/76
--- NOTE | 2017-08-14 12:25 | NUR ---
PT VERY ANXIOUS AND STATES THAT SHE FELT SOB AND NERVOUS, POX 97% ON 2L/NC, MEDICATED FOR ANXIETY PER REQUEST, ALSO MEDICATED PT FOR CONTINUED C/O CONSTIPATION AND FOR A HEADACHE THAT SHE STATES COMES AND GOES WITH TYLENOL, HUMIDIFICATION ADDED TO OXYGEN PER REQUEST OF DRY MUCOUS MEMBRANES NEHAL LEAVITT SPNRCC
--- NOTE | 2017-08-14 13:04 | NUR ---
PT FEELING MORE RELAXED AT PRESENT AND HEADACHE IS IMPROVED, SHILOH HELD THIS AM PT RECEIVED IT LAST NIGHT AT 0113 NEHAL LEAVITT JUNIOR
--- NOTE | 2017-08-14 13:09 | NUR ---
PT REFUSES BATH AND TO GET OUT OF BED FOR BED CHANGE NEHAL WYATTCYDavis [facility]
[2017-08-14 16:00] VITALS: BP 130/72
--- NOTE | 2017-08-14 17:40 | NUR ---
CALLED DR. MICHAEL MADE AWARE PT WANTS THYROID TESTED.
--- NOTE | 2017-08-14 18:53 | NUR ---
PT REQUESTING NASAL SPRAY FOR DRYNESS, SEE EMAR. CALL LIGHT IN REACH. OXYGEN IN USE.
[2017-08-14 20:00] VITALS: BP 137/77
--- NOTE | 2017-08-14 22:36 | NUR ---
PATIENT RESTING IN BED. MEDICATED WITH PRN TYLENOL FOR C/O HEADACHE. WILL MONITOR.
[2017-08-15] VITALS: BP 126/78
--- NOTE | 2017-08-15 00:04 | NUR ---
PATIENT MEDICATED WITH PRN BID ATIVAN FOR C/O ANXIOUSNESS
--- NOTE | 2017-08-15 00:51 | NUR ---
24 HR chart check completed.
--- NOTE | 2017-08-15 01:48 | NUR ---
MEDICATED WITH PRN NORCO FOR C/O HEADACHE RATED 5/10 ON A 0/10 PAIN SCALE
[2017-08-15 03:59] VITALS: BP 122/68
[2017-08-15 07:52] LABS: BASO % 0.1 % (0.0-1.0); HEMOGLOBIN 12.2 g/dl (12.0-16.0); LYMPH # 1.1 10*3/uL (1.3-4.4); LYMPH % 8.2 % (27.0-41.0); MEAN CELL VOLUME 90.9 fl (81.0-99.0); MEAN CORPUSCULAR HGB 29.2 pg (27.0-31.0); MEAN CORPUSCULAR HGB CONC 32.1 g/dl (33.0-37.0); MEAN PLATELET VOLUME 10.4 fl (9.6-12.3); MONO # 0.9 10*3/uL (0.1-1.0); MONO % 6.5 % (3.0-9.0); NEUT # 11.2 10*3/uL (2.3-7.9); NEUT % 84.6 % (47.0-73.0); PLATELET COUNT AUTOMATED 201 10*3/uL (130-400); RED BLOOD COUNT 4.18 10*6/uL (4.10-5.10); RED CELL DISTRI WIDTH 13.1 % (0-14.5); WHITE BLOOD COUNT 13.2 10*3/uL (4.8-10.8)
[2017-08-15 08:00] VITALS: BP 113/64; BP 116/84
[2017-08-15 08:17] LABS: BUN 10 mg/dl (7-24); CHLORIDE 107 mmol/L (98-107); CREATININE 0.64 mg/dL (0.55-1.02); PHOSPHOROUS 2.6 mg/dL (2.5-4.9); SODIUM 142 mmol/L (136-145)
[2017-08-15 08:24] LABS: THYROID STIM HORMONE (HS) 0.398 uIU/ml (0.358-4.75)
--- NOTE | 2017-08-15 09:20 | NUR ---
case management visits with patient, patient states she isn't feeling any better, discussed with her a short term penitentiary stay prior to going back home instead of home health, patient stated that she would think about this and see how she feels tomorrow
--- NOTE | 2017-08-15 10:22 | NUR ---
PT COMPLAINS OF HEADACHE, NORCO GIVEN. SEE MAR.
[2017-08-15 12:00] VITALS: BP 109/62
--- NOTE | 2017-08-15 14:45 | NUR ---
MEDICATED WITH PRN MOM FOR CONSTIPATION FOR 2 DAYS.
[2017-08-15 16:00] VITALS: BP 130/84
[2017-08-15 20:00] VITALS: BP 100/77
--- NOTE | 2017-08-15 22:20 | NUR ---
PATIENT RESTING IN BED WITH NO NEEDS MADE. BED IN LOWEST POSITION, CALL LIGHT IN REACH
--- NOTE | 2017-08-15 22:44 | NUR ---
PATIENT MEDICATED WITH PRN ATIVAN FOR C/O ANXIOUSNESS. ALSO C/O SHORTNESS OF BREATH. AUDIBLE WHEEZES HEARD. PULSE OX 97% ON 3L NC. WILL MONITOR
[2017-08-16] VITALS: BP 149/84
--- NOTE | 2017-08-16 00:36 | NUR ---
24 HR chart check completed.
--- NOTE | 2017-08-16 02:58 | NUR ---
PATIENT RESTING IN BED WITH EYES CLOSED. RESPS EASY AND REGULAR. MEDICATION SEEMS EFFECTIVE
[2017-08-16 07:24] LABS: BASO % 0.1 % (0.0-1.0); HEMATOCRIT 34.7 % (37.0-47.0); HEMOGLOBIN 11.4 g/dl (12.0-16.0); LYMPH # 0.9 10*3/uL (1.3-4.4); LYMPH % 7.5 % (27.0-41.0); MEAN CELL VOLUME 89.7 fl (81.0-99.0); MEAN CORPUSCULAR HGB 29.5 pg (27.0-31.0); MEAN CORPUSCULAR HGB CONC 32.9 g/dl (33.0-37.0); MEAN PLATELET VOLUME 10.2 fl (9.6-12.3); MONO # 0.6 10*3/uL (0.1-1.0); MONO % 4.7 % (3.0-9.0); NEUT # 10.5 10*3/uL (2.3-7.9); NEUT % 86.5 % (47.0-73.0); PLATELET COUNT AUTOMATED 193 10*3/uL (130-400); RED BLOOD COUNT 3.87 10*6/uL (4.10-5.10); RED CELL DISTRI WIDTH 13.2 % (0-14.5); WHITE BLOOD COUNT 12.1 10*3/uL (4.8-10.8)
[2017-08-16 07:54] LABS: BUN 14 mg/dl (7-24); CHLORIDE 104 mmol/L (98-107); CREATININE 0.53 mg/dL (0.55-1.02); PHOSPHOROUS 2.3 mg/dL (2.5-4.9); POTASSIUM 4.2 mmol/L (3.5-5.1); SODIUM 142 mmol/L (136-145)
[2017-08-16 08:00] VITALS: BP 119/77
--- NOTE | 2017-08-16 09:00 | NUR ---
case management visits with patient, patient will be going home when able and OV will follow, no other needs at this time
[2017-08-16 12:00] VITALS: BP 141/99
[2017-08-16 16:00] VITALS: BP 144/81
[2017-08-16 20:00] VITALS: BP 158/88
[2017-08-17] VITALS: BP 123/71
[2017-08-17 07:24] LABS: BASO % 0.2 % (0.0-1.0); HEMATOCRIT 36.2 % (37.0-47.0); HEMOGLOBIN 11.9 g/dl (12.0-16.0); LYMPH # 1.1 10*3/uL (1.3-4.4); LYMPH % 10.5 % (27.0-41.0); MEAN CELL VOLUME 89.8 fl (81.0-99.0); MEAN CORPUSCULAR HGB 29.5 pg (27.0-31.0); MEAN CORPUSCULAR HGB CONC 32.9 g/dl (33.0-37.0); MEAN PLATELET VOLUME 10.1 fl (9.6-12.3); MONO # 0.7 10*3/uL (0.1-1.0); MONO % 6.4 % (3.0-9.0); NEUT # 8.8 10*3/uL (2.3-7.9); NEUT % 81.1 % (47.0-73.0); PLATELET COUNT AUTOMATED 206 10*3/uL (130-400); RED BLOOD COUNT 4.03 10*6/uL (4.10-5.10); RED CELL DISTRI WIDTH 13.2 % (0-14.5); WHITE BLOOD COUNT 10.8 10*3/uL (4.8-10.8)
[2017-08-17 07:38] LABS: BUN 14 mg/dl (7-24); CHLORIDE 101 mmol/L (98-107); CREATININE 0.65 mg/dL (0.55-1.02); PHOSPHOROUS 2.9 mg/dL (2.5-4.9); POTASSIUM 4.4 mmol/L (3.5-5.1); SODIUM 142 mmol/L (136-145)
[2017-08-17 08:00] VITALS: BP 143/90
--- NOTE | 2017-08-17 09:00 | NUR ---
case management visits with patient, patient states she may be going home today, capacity planner will notify OV when patient is discharged, patient also stated that she had an appointment with [facility] for help with her heating bills and may not make the appointment, will have social service talk with patient regarding this
[2017-08-17] MEDS ORDERED: GENERLAC10 GM/15 M PO (09:52)
[2017-08-17] MEDS ORDERED: DOXYCYCLINE100 M3 PO (09:52)
[2017-08-17] MEDS ORDERED: PREDNISONE10 MG PO (09:52)
[2017-08-17] MEDS ORDERED: OMEPRAZOLE D/R20 MG PO (09:53)
--- NOTE | 2017-08-17 11:14 | NUR ---
Patient is being discharged to home with [facility] for home health. Recieved order, faxed clincals.
--- NOTE | 2017-08-17 11:52 | NUR ---
ATIVAN GIVEN AT THIS TIME PER PT REQUEST.
--- NOTE | 2017-08-17 12:00 | NUR ---
Discharge instructions reviewed with patient/family. Patient receptive and verbalizes understanding. Follow-up care arranged. Written instructions given to patient/family. ANA TANNER
--- NOTE | 2017-08-17 12:12 | NUR ---
SW SPOKE WITH PT ABOUT HEAP APPOINTMENT. SW ASSISTED PT IN CALLING [employer] TO SEE ABOUT A HOME VISIT. PT LEFT HER NAME AND NUMBER TO CALL HER BACK, SW SHOWED PT HOW TO CALL INSURANCE FOR TRANSPORTATION FOR MEDICAL APPOINTMENTS.
== END 2017-08-17 12:12 | disposition home health service (06) | DRG 871 ==
LOC: ED 19:08 → EDHOLD 22:28 → 4E 22:28
PROVIDERS: Emergency Medicine Emergency Medical Services; Family Medicine; Internal Medicine Nephrology; ADMIT Internal Medicine
DX: A41.9 Sepsis, unspecified organism (principal); J18.9 Pneumonia, unspecified organism; D84.9 Immunodeficiency, unspecified; E44.0 Moderate protein-calorie malnutrition; E87.3 Alkalosis; D80.1 Nonfamilial hypogammaglobulinemia; J44.0 Chronic obstructive pulmonary disease with (acute) lower respiratory infection; J44.1 Chronic obstructive pulmonary disease with (acute) exacerbation; R73.9 Hyperglycemia, unspecified; E55.9 Vitamin D deficiency, unspecified; J20.9 Acute bronchitis, unspecified; K59.09 Other constipation; J30.9 Allergic rhinitis, unspecified; K21.9 Gastro-esophageal reflux disease without esophagitis; I10 Essential (primary) hypertension; F17.210 Nicotine dependence, cigarettes, uncomplicated; F41.1 Generalized anxiety disorder; Z99.81 Dependence on supplemental oxygen; Z79.51 Long term (current) use of inhaled steroids; Z98.891 History of uterine scar from previous surgery; Z79.52 Long term (current) use of systemic steroids; Z79.899 Other long term (current) drug therapy; Z88.1 Allergy status to other antibiotic agents; Z71.6 Tobacco abuse counseling; Z88.2 Allergy status to sulfonamides; Z88.8 Allergy status to other drugs, medicaments and biological substances; Z82.5 Family history of asthma and other chronic lower respiratory diseases; Z82.49 Family history of ischemic heart disease and other diseases of the circulatory system; Z83.3 Family history of diabetes mellitus; Z83.79 Family history of other diseases of the digestive system

== ENCOUNTER 2017-09-11 09:25 | Inpatient (IN) | payer OTHER ==
[~2017-09-11] VITALS: Ht 160 cm; Wt 66.0 kg
[2017-09-11] VITALS (8 sets, daily range): BP systolic 112–152; BP diastolic 74–96
--- NOTE | ~2017-09-11 | CON ---
[place], [place] REPORT OF CONSULTATION [id number] #: [id number] ROOM: 428 DOCTOR: TIMMY LORENZO MD BIRTHDATE: [birth year] DOS: 09/16/2017 HISTORY OF PRESENT ILLNESS: The patient has presented with shortness of breath, dysphagia, and dyspepsia. The patient had endoscopic evaluation done. She was found to have esophagitis, gastritis, status post gastric biopsy; report pending. The patient continued with shortness of breath. The patient continued with O2 dependency, advanced COPD secondary to chronic smoking with severe emphysematous changes on CT and atherosclerotic changes, 60% stenosis of right common iliac artery, 50% stenosis of left common iliac artery and possible subtle mesenteric root fatty stranding, inferior central abdomen versus normal vessel as reported by CT on 09/11/2017. Recent labs and records reviewed, no growth in the urine was seen. Comprehensive metabolic panel, electrolyte balance, liver function test were normal. CBC: White blood cell 13, H and H of 11 and 35. REVIEW OF SYSTEMS: HEENT: Denies double vision, blurred vision. RESPIRATORY: Admits to shortness of breath and need of O2. CARDIOVASCULAR: Denies chest pain. DIGESTIVE SYSTEM: Sensation of esophageal distress and of esophageal dysphagia feeling. PHYSICAL EXAMINATION: GENERAL: Reveals short of breath on O2 mask. The patient with the stress of severe emphysematous changes. HEENT: Head normocephalic, nontraumatic. Mouth and buccal mucosa benign. NECK: Supple, no thyromegaly, no cervical lymphadenopathy. CHEST: Symmetric anatomy, scattered wheezes. HEART: Normal sinus rhythm, no gallop, no murmur. ABDOMEN: Soft. No hepato-organomegaly. Bowel sounds present. No pulsatile mass. EXTREMITIES: No cyanosis, no pedal edema. NEUROLOGIC: Alert, oriented to time, place, person. IMPRESSION: Esophagitis, gastritis, severe emphysematous changes, O2 dependent respiratory insufficiency, nicotine dependency, gastroesophageal reflux, and history of sepsis. PLAN AND DISCUSSION: Continuation with Gaviscon 1 at bedtime and p.r.n. as well as p.r.n. q.i.d. as well as Protonix 40 mg daily. Antireflux measures with elevation of the head of the bed. [place], [place] REPORT OF CONSULTATION NAME: PETE PASCUAL UNIT #: [id number] ROOM: 428 DOCTOR: TIMMY LORENZO MD BIRTHDATE: [birth year] TIMMY LORENZO MD CM:CONSTR:REPORT OF CONSULTATION 1742 09/16/17 2254 interface
--- NOTE | ~2017-09-11 | CON ---
[place], [place] REPORT OF CONSULTATION NAME: PETE PASCUAL [facility] #: [id number] UNIT #: [id number] ROOM: 428 DOCTOR: LUMA HER MD BIRTHDATE: [birth year] DOS: 09/14/2017 PULMONARY CONSULTATION, EVALUATION, AND MANAGEMENT CONSULTATION REQUESTED BY: Hospitalist services. REASON FOR CONSULTATION: Assessment of persistent respiratory symptoms, not resolving. HISTORY OF PRESENT ILLNESS: The patient was seen today with [id number] encounter, history was confirmed. Physical examination was performed. Assessment was personally completed and any changes in current medical treatment and recommendations were personally made as well. HISTORY OF PRESENT ILLNESS: This is a 52-year-old white female who has been admitted to the hospital on 09/11/2017. I was consulted for this patient for the assessment of respiratory symptoms. As I went to see the patient on 09/12/2017, I learned that the patient's consultation was canceled. She was reconsulted for the assessment of the current respiratory symptoms. She has presented to the hospital because of increased shortness of breath, occurring for the last couple of days prior to admission to the hospital with progressive nonproductive cough as well as difficulty of sputum expectoration and wheezing with chest tightness. The patient has also noted increased anxiety as well. She has been admitted to the hospital for further medical management. The patient does complain of some symptoms of tightness in the upper portion of the abdomen as well. The patient was seen by Dr. Dexter for GI consultation. She underwent EGD on 09/11/2017, noted with some gastritis finding and esophagitis with some management ordered by him. The patient's respiratory symptoms have not been resolved. She continued to have persistent symptoms of shortness breath, which were noted to worsen during the hospitalization. She reported cough, which remains persistent with excessive wheezing. She denies symptoms of chest pain. She was started on intravenous Solu-Medrol yesterday, also started on antibiotics and bronchodilators for further medical management. The patient stated a partial reduction and improvement of respiratory symptoms in the last 12 hours. The cough has been still noted moderately without any sputum expectoration. REVIEW OF SYSTEMS: Completed, done by the medical assistant per diem. PAST MEDICAL HISTORY: 2. The patient's last admission in this hospital was in August 2017 for acute exacerbation of chronic obstructive pulmonary disease, acute tracheobronchitis, required therapeutic bronchoscopy previously as well and then subsequently discharged home. 2. History of advanced centrilobular emphysema. 3. Common variable hypogammaglobulinemia, received only one treatment in June 2017 with IV immunoglobulin supplement. At this time, approval has been asked for the patient from the insurance, so far has not been received as the patient's insurance changed as the patient was noted disabled. 4. Vitamin D deficiency. [place], [place] RE[facility] OF [facility]ATION [id number] #: [id number] ROOM: [facility] DOCTOR: NASEEM HER MDM BIRTHDATE: [birth year] 5. Essential hypertension. 6. Gastroesophageal reflux. PAST SURGICAL HISTORY: 1. The patient had sinus surgery. 2. . 3. Therapeutic bronchoscopy of the patient done in the past, last one done in 2017. 4. MediPort insertion in the right upper chest. SOCIAL HISTORY: The patient is currently disabled from the job. During the job, she has been noted with exposure to significant dust for several years until May 2017. Smoking noted from age of [age] years old, half a pack of cigarettes per day until June 2017. There is no history of alcohol use or illicit drug use. FAMILY HISTORY: The patient's father at 65 due to complication of COPD. Mother at 79 years due to complication related to the pneumonia. MEDICATIONS: The currently administered medication at this time is the use of IV Solu-Medrol 40 mg q.8h., DuoNeb q.4h., vitamin D, use of Protonix, multivitamin, Norvasc, loratadine, Lovenox for DVT prophylaxis, Dulera 1 inhalation b.i.d., Singulair, nicotine replacement patches, magnesium hydroxide, and other p.r.n. medication including use of Xanax. DRUG ALLERGIES: NOTED ALLERGY TO: 1. SULFA DRUG. 2. MUCINEX. 3. CLINDAMYCIN. 4. AZITHROMYCIN. 5. AMOXICILLIN. 6. ENALAPRIL. PHYSICAL EXAMINATION: GENERAL: This is a 52-year-old female who has been currently noted awake and alert, without any distress. Height of 5 feet 2 inches, weight of 145 pounds. BMI of 25.7. VITAL SIGNS: Normal temperature, respiratory rate of 18-20, heart rate of 93-140 with intermittent sinus tachycardia, blood pressure 116/77-110/64, pulse oxygen saturation 3-liter nasal cannula 97% saturation. HEENT: Head was atraumatic. Eyes nonicterus. NECK: Supple. Oral mucosa was moist. CARDIOVASCULAR: S1, S2 audible. LUNGS: The patient was noted with moderate decreased breath sounds with expiratory wheezing without any crackles. ABDOMEN: Flat, soft, nontender. Bowel sounds present. EXTREMITIES: No edema, clubbing, or cyanosis. CENTRAL NERVOUS SYSTEM: Intact. No focal deficit. MUSCULOSKELETAL: No deformities. [place], [place] REPORT OF CONSULTATION NAME: PETE PASCUAL UNIT #: [id number] ROOM: [facility] DOCTOR: NASEEM HER MDM BIRTHDATE: [birth year] LABORATORY DATA: The lactic acid on 09/11/2017 was 1.7. CMP for the patient was noted on admission, 09/11/2017, CO2 35, remaining CMP completely normal. Rapid influenza A and B nasal washing antigen negative. The patient has a CBC done on 09/12/2017, with mild anemia with hemoglobin 11, otherwise normal. CMP of the patient noted as normal. Electrolytes for this patient, TSH normal on 09/12/2017. PT/PTT normal on 09/12/2017. CBC of the patient of 09/13/2017 essentially the same as on admission. IMAGING STUDIES: The chest x-ray, 2-views, was noted with changes of severe COPD with the Port-A-Cath in place. Granuloma was noted on the chest x-ray, chronic in the left upper lung, remains unchanged. CT scan of the abdomen and pelvis, which was done for the patient on this admission ordered by the primary care attending, noted with severe emphysema changes with atherosclerotic disease, 60% stenosis in the right common iliac and 50% in the left common iliac artery was suggested. Subtle mesenteric root fatty stranding in the inferior central abdomen versus normal vessels was described by the radiologist's report. IMPRESSION: 1. The patient will be currently admitted to the hospital. The patient noted with acute exacerbation of chronic obstructive pulmonary disease, which has been worsened progressively. 2. End-stage chronic obstructive pulmonary disease with history of chronic hypoxic respiratory failure. 3. Common variable hypogammaglobulinemia and acute low dose prednisone use of 5 mg daily as well. 4. The patient with gastritis and esophagitis as well, which has been treated symptomatically as well. 5. Generalized anxiety disorder. 6. Chronic intermittent tachycardia related to anxiety and exacerbation of chronic obstructive pulmonary disease as well. PLAN OF MANAGEMENT: The patient has been already started on the medications appropriate for the patient with COPD exacerbation last night with the use of the bronchodilator, which was previously ordered p.r.n. to every 4 hours while awake as a DuoNeb. She was also started on Solu-Medrol 40 mg every 8 hours as well. Antibiotic at this time may not be needed since the patient does not have any suspicion for acute bronchitis or pneumonia. Other plan of therapy to be continued as usual. Prednisone 5 mg, which has been used by the patient daily, has been discontinued. Maximize the nutrition support. The Ativan, which was ordered for the patient, has been discontinued and replaced with short acting anxiolytic, Xanax every 6 hours use 0.25 mg. Additional treatment changes will be ordered for the patient based on progression of the illness. Thanks for allowing me to participate in the care of this patient. [place], [place] REPORT OF CONSULTATION NAME: PETE PASCUAL UNIT #: [id number] ROOM: [facility] DOCTOR: LUMA HER MD BIRTHDATE: [birth year] LUMA PATTON MD CM:CONSTR:REPORT OF CONSULTATION 1705 09/15/17 0141 interface
--- NOTE | ~2017-09-11 | PR ---
[place], [place] PROGRESS NOTE NAME: PETE PASCUAL [facility] #: [id number] UNIT #: [id number] ROOM: 428 DOCTOR: POOJA VALDEZ MD,LUMA BIRTHDATE: [birth year] DOS: 09/16/2017 SUBJECTIVE: She has been continuing anxiolytics, bronchodilators, and oxygen supplementation. She was continued getting IV Solu-Medrol 40 mg b.i.d. as well. Denies symptoms of chest pain or hemoptysis. OBJECTIVE: VITAL SIGNS: For the patient which was recorded shows the temperature noted as normal. The respiratory rate of the patient recorded as respiratory 20, heart rate of 96-107, blood pressure 119/78 and 116/75, and the pulse oxygen saturation for the patient on 2 liters nasal cannula 96% saturation. HEENT: No acute change. NECK: Supple. CARDIOVASCULAR: S1, S2 audible. LUNGS: Shows [id number] decreased breath sounds, occasional wheezing. No crackles. GASTROINTESTINAL: Abdomen is soft and nontender. EXTREMITIES: Without any edema. LABORATORY DATA: BMP normal except CO2 of 36. The CBC of the patient, WBC count 13.3, mild anemia. Urine cultures, no bacterial growth. IMPRESSION: The patient currently noted with resolving acute exacerbation of chronic obstructive pulmonary disease, acute tracheobronchitis, history of severe general anxiety disorder, tachycardia related to the anxiety and exacerbation of chronic obstructive pulmonary disease, improving. PLAN OF TREATMENT: Reduce Solu-Medrol 40 mg daily, addition 10 mg of Paxil will be given since the patient does not have any side effect with that. The dose of the patient will be changed to 20 mg tomorrow as well. Possible discharge in the morning could be considered. LUMA PATTON MD CM:PNTRANS 1440 [id number] LUMA VALDEZ MD 09/16/17 1608 interface
--- NOTE | ~2017-09-11 | PR ---
[place], [place] PROGRESS NOTE NAME: PETE PASCUAL UNIT #: [id number] ROOM: 428 DOCTOR: LUMA HER MD BIRTHDATE: [birth year] DOS: 09/17/2017 PULMONARY PROGRESS NOTE SUBJECTIVE: She has been noted comfortable at this time without any distress. She is resting comfortably in the bed, still noted with a lot of anxiety issues. The patient has been taking Paxil. Shortness of breath, cough, and other symptoms of the patient have been gradually resolving. OBJECTIVE: VITAL SIGNS: For the patient, which have been recorded showed normal temperature, respiratory rate 20, heart rate of 100, blood pressure 128/82. Pulse oxygen saturation on 3 liters is 94% saturation. HEENT: No acute change. NECK: Supple. CARDIOVASCULAR: S1, S2 audible. LUNGS: Noted with moderate decreased breath sounds bilaterally. There was no wheezing or crackles at this time. ABDOMEN: Soft, nontender. LABORATORY DATA: CBC, mild anemia, otherwise normal. CMP of the patient was noted as normal except CO2 37. IMPRESSION: 1. Stable respiratory status. 2. General anxiety disorder with acute tracheobronchitis and exacerbation of COPD, are progressively resolving. PLAN OF TREATMENT: The patient was advised for possible discharge home. The patient is to continue previous home medication for COPD management. In addition, the patient will require tapering dose of prednisone, followed by 5 mg prednisone to be continued daily. Outpatient followup for the patient is to be scheduled post-discharge. [place], [place] PROGRESS NOTE NAME: PETE PASCUAL UNIT #: [id number] ROOM: 428 DOCTOR: LUMA HER MD BIRTHDATE: [birth year] LUMA PATTON MD CM:PNTRANS 1320 07 LUMA VALDEZ MD 09/17/172207 interface
--- NOTE | ~2017-09-11 | EKG ---
[place], [place] ELECTROCARDIOGRAM REPORT NAME: PETE PASCUAL UNIT #: [id number] ROOM: 4011 DOCTOR: POOJA VALDEZ MD,LUMA BIRTHDATE: [birth year] DOS: 09/11/2017 Electrocardiogram done at 09/11/2017 at 9:37 a.m. Sinus tachycardia noted, heart rate of 124 beats per minute. Right atrial enlargement was noted. LUMA PATTON MD CM:EKGRPT:ELECTROCARDIOGRAM REPORT 1815 1851 LUMA VALDEZ MD
--- NOTE | ~2017-09-11 | CON ---
[place], [place] REPORT OF CONSULTATION NAME: PETE PASCUAL [facility] #: [id number] UNIT #: [id number] ROOM: 4011 DOCTOR: TIMMY LORENZO MD BIRTHDATE: [birth year] DOS: 09/12/2017 HISTORY OF PRESENT ILLNESS: The patient is a 52-year-old who presented with chief complaint of dysphagia, reflux symptomatology, dyspepsia. Of course, she has been admitted for COPD exacerbation, shortness of breath, still actively smoking despite advises from Pulmonary Medicine, Pulmonary Care and COPD; she has been understanding; however, she has not been able to withhold the smoking. At the time of admission, white blood cell was 9, H and H of 13 and 39. Lactic acid was 1.7. Comprehensive metabolic panel: Glucose normal. GFR greater than 60. Electrolytes balance, liver function test normal. Troponin within normal limit. Flu A and B negative. Troponin was reassessed negative, atypical chest pain was followed with repeated troponin that is all unremarkable. CT scan of the chest and abdomen was done. Severe emphysematous changes, atherosclerotic disease, 60% stenosis in the right common iliac artery 50% stenosis, left common iliac artery, possible subtle mesenteric root fat stranding inferior central abdomen versus normal vessels was noticed. CBC with H and H of 11 and 33 was noticed. Liver function test normal. INR 1.1. B12 and folate were within normal limits. Vitamin D was slightly low at 20. PAST MEDICAL HISTORY: COPD of advanced degree and gastroesophageal reflux, atypical chest pain, hypogammaglobulinemia, vitamin D deficiency. PAST SURGICAL HISTORY: and multiple bronchoscopy. SOCIAL HISTORY: Aggressive smoker, social alcohol consumer. FAMILY HISTORY: Noncontributory. ALLERGIES: To numerous medications as listed in the H and P history, however, she has not been allergic to PPI therapy. HOME MEDICATIONS: Has been reviewed. REVIEW OF SYSTEMS: HEAD, EARS, EYES, NOSE AND THROAT: Denies double vision, blurred vision. RESPIRATORY: Admits chronic shortness of breath. CARDIOVASCULAR: Denies chest pain. DIGESTIVE SYSTEM: Atypical chest pain and GERD. PHYSICAL EXAMINATION: VITAL SIGNS: Stable. HEAD, EARS, EYES, NOSE AND THROAT: Head normocephalic, nontraumatic. Eyes: Pupils round and reactive. Mouth and buccal mucosa benign. No aphthae ulcer, no thrush. NECK: Supple, no thyromegaly, no cervical lymphadenopathy. CHEST: Symmetric anatomy, anteroposterior wheezes noticed. Limitation in air entry and exchange air was noticed. HEART: Normal sinus rhythm, no gallop, no murmur. ABDOMEN: Soft. No hepato-organomegaly. Bowel sounds present. No pulsatile mass. [place], [place] REPORT OF CONSULTATION NAME: PETE PASCUAL UNIT #: [id number] ROOM: [facility] DOCTOR: TIMMY LORENZO MD BIRTHDATE: [birth year] EXTREMITIES: No cyanosis, no pedal edema. NEUROLOGIC: Alert, oriented to time, place, person. IMPRESSION: Atypical chest pain, GERD, reflux, dysphagia, exacerbated chronic obstructive pulmonary disease, shortness of breath, chronically nicotine dependency. Otherwise, as indicated in past medical history including anxiety, hypertension, atherosclerotic vascular disease, abdominal pain, systemic inflammatory response, noninfectious, all has been noticed. PLAN AND DISCUSSION: Borderline anemia noticed, constipation is known, is going to be investigated in future. At the present time, we are going to address atypical chest pain and dyspepsia. TIMMY LORENZO MD CM:CONSTR:REPORT OF CONSULTATION 1125 09/12/17 1438 interface
--- NOTE | ~2017-09-11 | PR ---
[place], [place] PROGRESS NOTE NAME: PETE PASCUAL [facility] #: [id number] UNIT #: [id number] ROOM: 428 DOCTOR: POOJA VALDEZ MD,LUMA BIRTHDATE: [birth year] DOS: 09/15/2017 SUBJECTIVE: She has been noted with reduction in symptoms of shortness of breath and cough. Still noted significant anxiety. Denies symptoms of chest pain or abdominal pain. OBJECTIVE: VITAL SIGNS: Normal temperature, respiratory rate 20, heart rate 111, blood pressure 107/89, 114/71. The pulse oxygen saturation was recorded on 3 liters 99% saturation. HEENT: No acute changes. NECK: Supple. CARDIOVASCULAR: S1, S2 audible. LUNGS: Noted moderate decreased breath sounds. Reduction of wheezing. ABDOMEN: Flat, soft, nontender. EXTREMITIES: Without any edema. IMPRESSION: 1. The patient with ongoing acute exacerbation of chronic obstructive pulmonary disease, acute tracheobronchitis. 2. Sinus tachycardia intermittently related to the anxiety and exacerbation of chronic obstructive pulmonary disease. PLAN OF MANAGEMENT: Reduce the Solu-Medrol to 40 mg b.i.d. at this time. The patient will be ordered Paxil 10 mg daily as well to overcome the generalized anxiety disorder as well. Continue Xanax previously ordered. Supportive therapy, plan of management and other care. LUMA PATTON MD CM:PNTRANS [phone] LUMA VALDEZ MD 09/16/17 0120 interface
--- NOTE | ~2017-09-11 | O ---
[place], [place] OPERATIVE NOTE [id number] UNIT #: [id number] ROOM: 4011 DOCTOR: TIMMY LORENZO MD BIRTHDATE: [birth year] DOS: 09/11/2017 INDICATIONS: A 52-year-old patient who presented with chief complaint of gastroesophageal reflux symptomatology, atypical chest pain. Troponin negative. Workup negative. The patient presents with advanced emphysematous changes. PROCEDURE: Today's procedure part of investigation is panendoscopy. PREMEDICATION: Versed and Diprivan. SCOPE: Olympus forward-viewing gastroscope Q10 video. REPORT: After putting the patient in left lateral position and application of lubricant to the scope, the scope was introduced. Thereafter, under direct visualization, advanced through the length of esophagus without difficulty, evidence of esophagitis was noticed. Gastric pouch was entered. Gastritis seen. Antral biopsy obtained. Duodenal bulb, second and third parts were within normal limit. The patient extubated, tolerated procedure well. IMPRESSION: Esophagitis, gastritis, status post biopsy. PLAN AND DISCUSSION: Protonix 40 mg 1 every day, Gaviscon 1 tablet p.c. meals for assessment to see if her symptomatology is going to improve. DIET: GERD diet, antireflux measures with elevation of the head of the bed 6 inch all time clinical reassessment. As far as anemia and constipation is concerned, she requires future investigation including a colonoscopy as outpatient, perhaps. I thank you very much indeed for your kind referral. TIMMY LORENZO MD CM:OPRECORD:OPERATIVE NOTE 1137 1314 TIMMY LORENZO MD 09/12/17 1313 interface
--- NOTE | ~2017-09-11 | CON ---
[place], [place] REPORT OF CONSULTATION NAME: PETE PASCUAL [facility] #: [id number] UNIT #: [id number] ROOM: 428 DOCTOR: JOSE CARD DO BIRTHDATE: [birth year] DOS: 09/14/2017 CHIEF COMPLAINT: Shortness of breath. HISTORY OF PRESENT ILLNESS: A 52-year-old female who came in with a history of chronic COPD, presents with a 4-day history of worsening shortness of breath and says she has associated cough with yellow sputum without any hemoptysis. Additionally, the patient complained of acid reflux and heartburn symptoms. The patient has a history of tobacco abuse. She says she has not smoked in over a week. The patient has also noticed some dysphagia over the last month. Now, food has been getting stuck. The patient was seen by Dr. Dexter who did perform an EGD, showed gastritis. The patient was started on Gaviscon and Protonix. The patient on day 2 of admission complained of worsening shortness of breath with exertion and Pulmonary was consulted for optimization of the patient's pulmonary care. PAST MEDICAL HISTORY: Anxiety, COPD, common variable hypogammaglobulinemia, COPD, essential hypertension, GERD, immunodeficiency syndrome, supplemental oxygen dependent and vitamin D deficiency. PAST SURGICAL HISTORY: Sinus surgery, bronchoscopies and . SOCIAL HISTORY: Denies illicit drug use. Denies alcohol use, tobacco abuse. The patient has reduced the amount of tobacco. She has used over the past few months; however, she smokes about half pack to pack per day since the age of 17. FAMILY HISTORY: Father of pneumonia at age 65 and also had COPD. Mother at age 79 of pneumonia. Brother of bowel perforation. ALLERGIES: AMOXICILLIN, AZITHROMYCIN, BUDESONIDE, FORMOTEROL, MOMETASONE, BACTRIM, ENALAPRIL, SULFA, AMOXICILLIN, AZITHROMYCIN, CLINDAMYCIN, ENALAPRIL, GUAIFENESIN. HOME MEDICATIONS: ProAir, Norvasc, calcium supplement, Advair, lactulose, Claritin, Ativan, Singulair, Nicoderm, omeprazole, oxygen supplementation 3 liters nasal cannula, prednisone 5 daily, Sennosides and Spiriva. REVIEW OF SYSTEMS: GENERAL: The patient denies fever, chills, nausea, vomiting or weight loss. The patient reports weight gain of 20 pounds in the past month. HEENT: The patient denies ear pain, eye pain, dysphagia, nose pain or discharge from the eyes. CARDIOVASCULAR: The patient denies chest pain, palpitations, lower extremity edema. RESPIRATORY: The patient complains of shortness of breath, cough, wheezing, dyspnea on exertion, sputum production. The patient denies hemoptysis and stridor. ABDOMEN: The patient denies abdominal pain, change in bowel habits, nausea or vomiting. NEUROLOGIC: The patient denies lightheadedness, dizziness or confusion. [place], [place] REPORT OF CONSULTATION NAME: PETE PASCUAL UNIT #: [id number] ROOM: 428 DOCTOR: JOSE CARD DO BIRTHDATE: [birth year] SKIN: The patient denies rashes or lesions. PHYSICAL EXAMINATION: VITAL SIGNS: Temperature 98.4, pulse is 114, respirations 20, blood pressure 110/64, pulse ox is 95% on 3 liters nasal cannula. GENERAL APPEARANCE: The patient is alert and oriented x 3, in mild distress. HEENT: Eyes are clear. No injection. Nares are patent. Oral mucosa is moist. NECK: Supple, nontender. RESPIRATORY: Mild expiratory wheezing with rhonchi, no rales appreciated. CARDIOVASCULAR: Regular rate and rhythm, no murmurs, gallops or rubs. ABDOMEN: Soft, nontender with positive bowel sounds. MUSCULOSKELETAL: No deformities noted. EXTREMITIES: No edema, no cyanosis, no clubbing. NEUROLOGIC: No focal deficits on neuro exam. LABORATORY DATA: CBC on showed hemoglobin 11.9, white count of 8, hematocrit of 35.9, platelets of 202. Coag profile is normal. Nares were negative for influenza. Chest x-ray upon admission shows no acute process. ASSESSMENT: 1. Chronic obstructive pulmonary disease, end-stage. The patient is on the lung transplant list. 2. Worsening exacerbation of chronic hypoxia. 3. Gastritis and dysphagia. 4. Tobacco abuse. 5. Gastroesophageal reflux disease. 6. Sepsis. TREATMENT PLAN: The patient was started on Solu-Medrol 40 q. 8, DuoNebs, Dulera and Singulair. We will continue to monitor the patient's respiratory status. The patient will need 1-2 days of respiratory therapy before the patient will be ready for discharge home to continue her therapy outpatient. Thank you for the consult. JOSE CARD DO [place], [place] REPORT OF CONSULTATION NAME: VILLANUEVAJAMIRPETE M UNIT #: [id number] ROOM: 428 DOCTOR: JOSE CARD DO BIRTHDATE: [birth year] LUMA PATTON MD CM:CONSTR:REPORT OF CONSULTATION 1311 09/14/17 1501 interface
[~2017-09-11 09:25] MED LIST changes: +GENERLAC10 GM/15 M PO; +TUMS200 MG PO
[2017-09-11] MEDS ORDERED: OMEPRAZOLE20 M2 PO (09:56)
[2017-09-11] MEDS ORDERED: PREDNISONE5 MG PO (09:57)
[2017-09-11] MEDS ORDERED: SENNA8.6 MG PO (09:58)
[2017-09-11 10:06] LABS: BASO % 0.3 % (0.0-1.0); EOS % 0.1 % (1.0-4.0); HEMATOCRIT 39.4 % (37.0-47.0); HEMOGLOBIN 13.1 g/dl (12.0-16.0); LYMPH # 0.7 10*3/uL (1.3-4.4); LYMPH % 7.6 % (27.0-41.0); MEAN CELL VOLUME 88.5 fl (81.0-99.0); MEAN CORPUSCULAR HGB 29.4 pg (27.0-31.0); MEAN CORPUSCULAR HGB CONC 33.2 g/dl (33.0-37.0); MEAN PLATELET VOLUME 9.7 fl (9.6-12.3); MONO # 0.3 10*3/uL (0.1-1.0); MONO % 3.4 % (3.0-9.0); NEUT # 7.9 10*3/uL (2.3-7.9); NEUT % 88.2 % (47.0-73.0); PLATELET COUNT AUTOMATED 215 10*3/uL (130-400); RED BLOOD COUNT 4.45 10*6/uL (4.10-5.10); RED CELL DISTRI WIDTH 13.3 % (0-14.5)
[2017-09-11 10:24] LABS: ALBUMIN 3.9 gm/dl (3.1-4.5); ALKALINE PHOSPHATASE 60 U/L (45-117); BUN 7 mg/dl (7-24); CHLORIDE 101 mmol/L (98-107); CREATININE 0.66 mg/dL (0.55-1.02); POTASSIUM 3.8 mmol/L (3.5-5.1); SGOT/AST 15 IU/L (3-35); SGPT/ALT 21 U/L (12-78); SODIUM 141 mmol/L (136-145); TOTAL PROTEIN 6.9 gm/dL (6.4-8.2)
[2017-09-11 10:25] LABS: TROPONIN I < 0.015 ng/ml (<0.045)
[2017-09-12] VITALS (10 sets, daily range): BP systolic 94–122; BP diastolic 47–84
[2017-09-12 06:17] LABS: BASO % 0.1 % (0.0-1.0); EOS % 0.2 % (1.0-4.0); LYMPH # 1.8 10*3/uL (1.3-4.4); LYMPH % 17.4 % (27.0-41.0); MEAN CELL VOLUME 90.2 fl (81.0-99.0); MEAN CORPUSCULAR HGB CONC 33.2 g/dl (33.0-37.0); MEAN PLATELET VOLUME 9.8 fl (9.6-12.3); MONO # 1.1 10*3/uL (0.1-1.0); MONO % 10.4 % (3.0-9.0); NEUT # 7.3 10*3/uL (2.3-7.9); NEUT % 71.5 % (47.0-73.0); PLATELET COUNT AUTOMATED 198 10*3/uL (130-400); RED BLOOD COUNT 3.67 10*6/uL (4.10-5.10); RED CELL DISTRI WIDTH 13.3 % (0-14.5); WHITE BLOOD COUNT 10.3 10*3/uL (4.8-10.8)
[2017-09-12 06:25] LABS: ALKALINE PHOSPHATASE 49 U/L (45-117); BUN 10 mg/dl (7-24); CHLORIDE 105 mmol/L (98-107); CREATININE 0.56 mg/dL (0.55-1.02); HEMATOCRIT 33.1 % (37.0-47.0); PHOSPHOROUS 3.9 mg/dL (2.5-4.9); POTASSIUM 3.9 mmol/L (3.5-5.1); SGOT/AST 13 IU/L (3-35); SGPT/ALT 19 U/L (12-78); SODIUM 143 mmol/L (136-145); TOTAL PROTEIN 5.5 gm/dL (6.4-8.2)
[2017-09-12 06:31] LABS: THYROID STIM HORMONE (HS) 0.697 uIU/ml (0.358-4.75)
[2017-09-12 07:08] LABS: ACT PARTIAL THROMBO TIME 24.7 SECONDS (20.8-31.5)
[2017-09-12 07:16] LABS: VITAMIN D, 25-HYDROXY 20.7 ng/mL (30-100)
[2017-09-13] VITALS: BP 124/81
[2017-09-13 06:06] LABS: BASO % 0.5 % (0.0-1.0); EOS # 0.1 10*3/uL (0.0-0.4); EOS % 1.7 % (1.0-4.0); HEMATOCRIT 35.9 % (37.0-47.0); HEMOGLOBIN 11.9 g/dl (12.0-16.0); LYMPH # 3.1 10*3/uL (1.3-4.4); LYMPH % 38.5 % (27.0-41.0); MEAN CELL VOLUME 92.3 fl (81.0-99.0); MEAN CORPUSCULAR HGB 30.6 pg (27.0-31.0); MEAN CORPUSCULAR HGB CONC 33.1 g/dl (33.0-37.0); MONO # 0.8 10*3/uL (0.1-1.0); MONO % 9.5 % (3.0-9.0); NEUT % 49.3 % (47.0-73.0); PLATELET COUNT AUTOMATED 202 10*3/uL (130-400); RED BLOOD COUNT 3.89 10*6/uL (4.10-5.10); RED CELL DISTRI WIDTH 13.4 % (0-14.5)
[2017-09-13 08:00] VITALS: BP 119/80
[2017-09-13 12:00] VITALS: BP 125/82
[2017-09-13 16:00] VITALS: BP 102/70
[2017-09-13 20:00] VITALS: BP 128/78
[2017-09-14] VITALS: BP 116/77
[2017-09-14 08:00] VITALS: BP 115/88
[2017-09-14 12:00] VITALS: BP 110/64
[2017-09-14 16:00] VITALS: BP 122/75
[2017-09-14 20:00] VITALS: BP 123/77
[2017-09-15] VITALS: BP 129/85
[2017-09-15 07:02] LABS: BASO % 0.1 % (0.0-1.0); HEMATOCRIT 35.2 % (37.0-47.0); HEMOGLOBIN 11.9 g/dl (12.0-16.0); LYMPH # 1.4 10*3/uL (1.3-4.4); LYMPH % 9.9 % (27.0-41.0); MEAN CELL VOLUME 88.2 fl (81.0-99.0); MEAN CORPUSCULAR HGB 29.8 pg (27.0-31.0); MEAN CORPUSCULAR HGB CONC 33.8 g/dl (33.0-37.0); MEAN PLATELET VOLUME 9.9 fl (9.6-12.3); MONO # 0.8 10*3/uL (0.1-1.0); MONO % 6.1 % (3.0-9.0); NEUT # 11.4 10*3/uL (2.3-7.9); NEUT % 82.9 % (47.0-73.0); PLATELET COUNT AUTOMATED 263 10*3/uL (130-400); RED BLOOD COUNT 3.99 10*6/uL (4.10-5.10); RED CELL DISTRI WIDTH 13.1 % (0-14.5); WHITE BLOOD COUNT 13.7 10*3/uL (4.8-10.8)
[2017-09-15 07:18] LABS: ALBUMIN 3.4 gm/dl (3.1-4.5); ALKALINE PHOSPHATASE 52 U/L (45-117); BUN 21 mg/dl (7-24); CHLORIDE 99 mmol/L (98-107); CREATININE 0.66 mg/dL (0.55-1.02); POTASSIUM 4.1 mmol/L (3.5-5.1); SGOT/AST 8 IU/L (3-35); SGPT/ALT 17 U/L (12-78); SODIUM 139 mmol/L (136-145)
[2017-09-15 08:00] VITALS: BP 116/77
[2017-09-15 11:37] LABS: BILIRUBIN NEGATIVE (NEGATIVE); BLOOD NEGATIVE (NEGATIVE); CLARITY SL CLOUDY (CLEAR); COLOR YELLOW (YELLOW); GLUCOSE NEGATIVE (NEGATIVE); KETONE NEGATIVE (NEGATIVE); LEUKO ESTERASE 1+ (NEGATIVE); NITRITE NEGATIVE (NEGATIVE); PH 6.5 (5.0-9.0); SPECIFIC GRAVITY <= 1.005 (1.005-1.030); UROBILINOGEN 0.2 E.U./dl (0.2-1.0)
[2017-09-15 11:49] LABS: RBC 0-2 rbc/hpf (0-2)
[2017-09-15 12:00] VITALS: BP 107/89
[2017-09-15 16:59] VITALS: BP 114/71
[2017-09-15 20:00] VITALS: BP 113/76
[2017-09-16] VITALS: BP 117/72
[2017-09-16 07:15] LABS: BASO % 0.1 % (0.0-1.0); HEMATOCRIT 35.6 % (37.0-47.0); HEMOGLOBIN 11.5 g/dl (12.0-16.0); LYMPH % 7.4 % (27.0-41.0); MEAN CELL VOLUME 89.9 fl (81.0-99.0); MEAN CORPUSCULAR HGB CONC 32.3 g/dl (33.0-37.0); MEAN PLATELET VOLUME 9.8 fl (9.6-12.3); MONO # 0.6 10*3/uL (0.1-1.0); MONO % 4.8 % (3.0-9.0); NEUT # 11.5 10*3/uL (2.3-7.9); NEUT % 86.3 % (47.0-73.0); PLATELET COUNT AUTOMATED 259 10*3/uL (130-400); RED BLOOD COUNT 3.96 10*6/uL (4.10-5.10); RED CELL DISTRI WIDTH 13.2 % (0-14.5); WHITE BLOOD COUNT 13.3 10*3/uL (4.8-10.8)
[2017-09-16 07:43] LABS: ALBUMIN 3.3 gm/dl (3.1-4.5); ALKALINE PHOSPHATASE 48 U/L (45-117); BUN 23 mg/dl (7-24); CHLORIDE 100 mmol/L (98-107); CREATININE 0.66 mg/dL (0.55-1.02); POTASSIUM 4.4 mmol/L (3.5-5.1); SGOT/AST 7 IU/L (3-35); SGPT/ALT 17 U/L (12-78); SODIUM 141 mmol/L (136-145); TOTAL PROTEIN 5.8 gm/dL (6.4-8.2)
[2017-09-16 08:00] VITALS: BP 116/75
[2017-09-16 12:00] VITALS: BP 119/78
[2017-09-16 16:00] VITALS: BP 132/80
[2017-09-16 20:00] VITALS: BP 124/77
[2017-09-17] VITALS: BP 122/75
[2017-09-17 04:00] VITALS: BP 115/81
[2017-09-17 07:19] LABS: BASO % 0.3 % (0.0-1.0); EOS % 0.3 % (1.0-4.0); HEMATOCRIT 35.1 % (37.0-47.0); HEMOGLOBIN 11.5 g/dl (12.0-16.0); LYMPH # 2.7 10*3/uL (1.3-4.4); LYMPH % 27.8 % (27.0-41.0); MEAN CELL VOLUME 91.2 fl (81.0-99.0); MEAN CORPUSCULAR HGB 29.9 pg (27.0-31.0); MEAN CORPUSCULAR HGB CONC 32.8 g/dl (33.0-37.0); MEAN PLATELET VOLUME 10.2 fl (9.6-12.3); MONO # 0.9 10*3/uL (0.1-1.0); MONO % 9.1 % (3.0-9.0); NEUT # 5.9 10*3/uL (2.3-7.9); NEUT % 61.6 % (47.0-73.0); PLATELET COUNT AUTOMATED 236 10*3/uL (130-400); RED BLOOD COUNT 3.85 10*6/uL (4.10-5.10); RED CELL DISTRI WIDTH 13.4 % (0-14.5); WHITE BLOOD COUNT 9.6 10*3/uL (4.8-10.8)
[2017-09-17 07:50] LABS: ALBUMIN 3.1 gm/dl (3.1-4.5); ALKALINE PHOSPHATASE 48 U/L (45-117); BUN 22 mg/dl (7-24); CHLORIDE 103 mmol/L (98-107); CREATININE 0.67 mg/dL (0.55-1.02); POTASSIUM 3.9 mmol/L (3.5-5.1); SGOT/AST 8 IU/L (3-35); SGPT/ALT 18 U/L (12-78); SODIUM 142 mmol/L (136-145); TOTAL PROTEIN 5.4 gm/dL (6.4-8.2)
[2017-09-17 08:00] VITALS: BP 128/78
[2017-09-17] MEDS ORDERED: PAROXETINE HCL20 MG PO (11:37)
[2017-09-17] MEDS ORDERED: PREDNISONE10 MG PO (11:37)
[2017-09-17] MEDS ORDERED: ALPRAZOLAM0.25 M2 PO (11:37)
[2017-09-17] MEDS ORDERED: THERA TABLET400 MCG PO (11:37)
[2017-09-17] MEDS ORDERED: AMLODIPINE BESYL5 MG PO (11:45)
[2017-09-17 12:00] VITALS: BP 128/82
[2017-09-17] MEDS ORDERED: ACID GONE TABL1 EACH PO (14:00)
[2017-09-17] MEDS ORDERED: PANTOPRAZOLE SO40 MG PO (14:00)
== END 2017-09-17 15:52 | disposition home health service (06) | DRG 872 ==
LOC: ED 09:25 → 4NE 12:18 → EDHOLD 12:18 → 4E 12:18 → 4NE 12:57 → 4E 09-14 13:14
PROVIDERS: Emergency Medicine; Internal Medicine; Internal Medicine Hospice and Palliative Medicine; Physician Assistant
PROC: 0DB68ZX Excision of Stomach, Via Natural or Artificial Opening Endoscopic, Diagnostic (ICD-10-PCS; principal; 2017-09-11)
DX: A41.9 Sepsis, unspecified organism (principal); E87.3 Alkalosis; D84.9 Immunodeficiency, unspecified; E44.0 Moderate protein-calorie malnutrition; J96.11 Chronic respiratory failure with hypoxia; J44.0 Chronic obstructive pulmonary disease with (acute) lower respiratory infection; J44.1 Chronic obstructive pulmonary disease with (acute) exacerbation; K29.00 Acute gastritis without bleeding; R13.10 Dysphagia, unspecified; K21.0 Gastro-esophageal reflux disease with esophagitis; K59.00 Constipation, unspecified; I10 Essential (primary) hypertension; R07.89 Other chest pain; J20.9 Acute bronchitis, unspecified; E55.9 Vitamin D deficiency, unspecified; F32.9 Major depressive disorder, single episode, unspecified; F41.1 Generalized anxiety disorder; I70.201 Unspecified atherosclerosis of native arteries of extremities, right leg; F17.210 Nicotine dependence, cigarettes, uncomplicated; I70.202 Unspecified atherosclerosis of native arteries of extremities, left leg; R73.9 Hyperglycemia, unspecified; Z99.81 Dependence on supplemental oxygen; Z71.6 Tobacco abuse counseling; Z82.5 Family history of asthma and other chronic lower respiratory diseases; Z83.79 Family history of other diseases of the digestive system; Z88.2 Allergy status to sulfonamides; Z88.8 Allergy status to other drugs, medicaments and biological substances; Z88.1 Allergy status to other antibiotic agents; Z79.52 Long term (current) use of systemic steroids; Z79.899 Other long term (current) drug therapy; Z83.3 Family history of diabetes mellitus; Z82.49 Family history of ischemic heart disease and other diseases of the circulatory system; Z98.891 History of uterine scar from previous surgery; Z68.25 Body mass index [BMI] 25.0-25.9, adult

== ENCOUNTER 2017-10-28 17:52 | Emergency (ER) | payer OTHER ==
[~2017-10-28] VITALS: Ht 160 cm; Wt 56.7 kg
[~2017-10-28 17:52] MED LIST changes: +ACID GONE TABL1 EACH PO; +ALPRAZOLAM0.25 M2 PO; +ANORO ELLIPTA1 EACH INH; +ARNUITY ELLIP100 MCG PO; +OMEPRAZOLE20 M2 PO; +PANTOPRAZOLE SO40 MG PO; +PAROXETINE HCL20 MG PO; +PREDNISONE10 M1 PO; +SENNA8.6 MG PO; +THERA TABLET400 MCG PO
[2017-10-28 18:00] VITALS: BP 126/84
[2017-10-28 19:06] LABS: BASO % 0.3 % (0.0-1.0); EOS # 0.1 10*3/uL (0.0-0.4); EOS % 0.8 % (1.0-4.0); HEMATOCRIT 37.6 % (37.0-47.0); HEMOGLOBIN 12.5 g/dl (12.0-16.0); LYMPH # 2.5 10*3/uL (1.3-4.4); LYMPH % 27.9 % (27.0-41.0); MEAN CELL VOLUME 90.2 fl (81.0-99.0); MEAN CORPUSCULAR HGB CONC 33.2 g/dl (33.0-37.0); MEAN PLATELET VOLUME 10.6 fl (9.6-12.3); MONO # 0.9 10*3/uL (0.1-1.0); MONO % 10.2 % (3.0-9.0); NEUT # 5.3 10*3/uL (2.3-7.9); NEUT % 60.5 % (47.0-73.0); PLATELET COUNT AUTOMATED 235 10*3/uL (130-400); RED BLOOD COUNT 4.17 10*6/uL (4.10-5.10); RED CELL DISTRI WIDTH 13.4 % (0-14.5); WHITE BLOOD COUNT 8.8 10*3/uL (4.8-10.8)
[2017-10-28 19:20] LABS: ALBUMIN 3.3 gm/dl (3.1-4.5); ALKALINE PHOSPHATASE 54 U/L (45-117); BUN 12 mg/dl (7-24); CHLORIDE 102 mmol/L (98-107); CREATININE 0.75 mg/dL (0.55-1.02); POTASSIUM 3.4 mmol/L (3.5-5.1); SGOT/AST 18 IU/L (3-35); SGPT/ALT 23 U/L (12-78); SODIUM 141 mmol/L (136-145); TOTAL PROTEIN 6.9 gm/dL (6.4-8.2)
[2017-10-28] MEDS ORDERED: PREDNISONE10 MG PO (19:28)
== END 2017-10-28 19:34 | disposition home or self-care (01) ==
LOC: ED 17:52
PROVIDERS: Registered Nurse
DX: T78.40XA Allergy, unspecified, initial encounter (principal); Z88.2 Allergy status to sulfonamides; Z88.1 Allergy status to other antibiotic agents; Z88.8 Allergy status to other drugs, medicaments and biological substances; Z79.899 Other long term (current) drug therapy; X58.XXXA Exposure to other specified factors, initial encounter

== ENCOUNTER 2017-11-16 18:09 | Emergency (ER) | payer OTHER ==
[~2017-11-16] VITALS: Wt 79.4 kg
[2017-11-16 18:29] VITALS: BP 109/71
[2017-11-16 18:49] LABS: BASO % 0.4 % (0.0-1.0); EOS # 0.2 10*3/uL (0.0-0.4); EOS % 1.8 % (1.0-4.0); HEMATOCRIT 41.9 % (37.0-47.0); HEMOGLOBIN 13.7 g/dl (12.0-16.0); LYMPH # 2.3 10*3/uL (1.3-4.4); LYMPH % 23.4 % (27.0-41.0); MEAN CELL VOLUME 90.9 fl (81.0-99.0); MEAN CORPUSCULAR HGB 29.7 pg (27.0-31.0); MEAN CORPUSCULAR HGB CONC 32.7 g/dl (33.0-37.0); MEAN PLATELET VOLUME 10.1 fl (9.6-12.3); MONO # 0.8 10*3/uL (0.1-1.0); MONO % 7.9 % (3.0-9.0); NEUT # 6.4 10*3/uL (2.3-7.9); NEUT % 66.2 % (47.0-73.0); PLATELET COUNT AUTOMATED 237 10*3/uL (130-400); RED BLOOD COUNT 4.61 10*6/uL (4.10-5.10); RED CELL DISTRI WIDTH 13.7 % (0-14.5); WHITE BLOOD COUNT 9.7 10*3/uL (4.8-10.8)
[2017-11-16 19:09] LABS: ALBUMIN 3.5 gm/dl (3.1-4.5); ALKALINE PHOSPHATASE 56 U/L (45-117); BUN 10 mg/dl (7-24); CHLORIDE 104 mmol/L (98-107); CREATININE 0.93 mg/dL (0.55-1.02); POTASSIUM 3.9 mmol/L (3.5-5.1); SGOT/AST 15 IU/L (3-35); SGPT/ALT 23 U/L (12-78); SODIUM 141 mmol/L (136-145); TOTAL PROTEIN 6.6 gm/dL (6.4-8.2)
[2017-11-16] MEDS ORDERED: LEVOFLOXACIN500 MG PO (20:36)
== END 2017-11-16 20:38 | disposition home or self-care (01) ==
LOC: ED 18:09
PROVIDERS: Emergency Medicine
DX: J20.9 Acute bronchitis, unspecified (principal); J44.1 Chronic obstructive pulmonary disease with (acute) exacerbation; K21.9 Gastro-esophageal reflux disease without esophagitis; I10 Essential (primary) hypertension; Z88.1 Allergy status to other antibiotic agents; Z88.2 Allergy status to sulfonamides; Z88.8 Allergy status to other drugs, medicaments and biological substances; Z79.899 Other long term (current) drug therapy

== ENCOUNTER 2017-11-24 15:16 | Inpatient (IN) | payer OTHER ==
[~2017-11-24] VITALS: Ht 160 cm; Wt 61.3 kg
--- NOTE | ~2017-11-24 | PR ---
[place], [place] PROGRESS NOTE NAME: PETE PASCUAL [facility] #: [id number] UNIT #: [id number] ROOM: 408 DOCTOR: POOJA VALDEZ MD,LUMA BIRTHDATE: [birth year] DOS: 11/29/2017 SUBJECTIVE: The patient was not noted with any ongoing complaints at this time. There were no symptoms of chest pain or any abdominal pain. The patient stated partial reduction in the respiratory symptoms in the last 24 hours. OBJECTIVE: VITAL SIGNS: This morning, normal temperature, respiratory rate 16, heart rate of 95, respiratory rate 22, blood pressure 124/76-142/92. The pulse oxygen saturation was noted 2 liters nasal cannula 98% saturation. HEENT: Examination shows head was atraumatic. Eyes nonicterus. NECK: Supple. CARDIOVASCULAR: S1, S2 audible. LUNGS: Without any wheeze or crackles. ABDOMEN: Soft, nontender. IMPRESSION: 1. Resolving acute exacerbation of chronic obstructive pulmonary disease, acute bronchitis, chronic sinus tachycardia noted intermittently. 2. History of essential hypertension. 3. Allergic rhinitis. PLAN OF TREATMENT: Dose of Solu-Medrol will be decreased to 40 mg b.i.d. Observation of the symptoms in the next 24 hours prior to the home discharge. Other supportive plan of therapy and management and care. LUMA PATTON MD CM:PNTRANS 1401 9 LUMA VALDEZ MD 11/30/17 013 interface
--- NOTE | ~2017-11-24 | PR ---
[place], [place] PROGRESS NOTE NAME: PETE PASCUAL [facility] #: [id number] UNIT #: [id number] ROOM: 408 DOCTOR: POOJA VALDEZ MD,LUMA BIRTHDATE: [birth year] DOS: 11/28/2017 SUBJECTIVE: The patient noted comfortably resting on the bed. She was still complaining of some shortness of breath and cough and wheezing intermittently. Denies symptoms of chest pain and was continued on corticosteroids, Solu-Medrol 40 mg q.8h. in the last 24 hours. OBJECTIVE: VITAL SIGNS: For the patient which has been recorded shows a normal temperature, respiratory rate of 18, heart rate of 88, and blood pressure 126/80. The pulse oxygen saturation of the patient recorded as 98% on 3 liters cannula. HEENT: No acute change. NECK: Supple. CARDIOVASCULAR: S1, S2 audible. LUNGS: The patient was noted without any crackles. Scattered expiratory wheezing. ABDOMEN: Soft and nontender. EXTREMITIES: Without any acute edema. LABORATORY DATA: BUN and creatinine were normal today. CBC normal. The chest x-ray with no acute pulmonary disease. IMPRESSION: Resolving acute exacerbation of chronic obstructive pulmonary disease, acute tracheobronchitis, history of allergic rhinitis, and general anxiety disorder. PLAN OF TREATMENT: No changes in the plan of therapy at this time. The patient will be continued on current plan of management as in progress. Usual care. Supportive therapy plan of care. LUMA PATTON MD CM:PNTRANS 1137 17 LUMA VALDEZ MD 11/28/171917 interface
--- NOTE | ~2017-11-24 | CON ---
[place], [place] REPORT OF CONSULTATION NAME: PETE PASCUAL [facility] #: [id number] UNIT #: [id number] ROOM: 408 DOCTOR: LUMA HER MD BIRTHDATE: [birth year] DOS: 11/25/2017 CONSULTATION REQUESTED BY: Hospitalist service. REASON FOR CONSULTATION: For assessment of COPD. HISTORY OF PRESENT ILLNESS: This is a 52-year-old white female known to me with history of end-stage COPD with respiratory failure and also recent diagnosis, variable hypogammaglobulinemia, receiving the intravenous gamma globulins every monthly basis. The patient presented to the hospital. The patient noted with symptoms of increasing shortness breath that has occurred for the past 24 hours. The symptoms, shortness breath was occurring with walking a few feet on a level surface at home. The patient denies any symptoms of chest pain. She does have mild cough without any significant severe sputum expectoration. The wheezing of the patient was also noted intermittently. She denies symptoms of chest pain with that. Denies symptoms of hemoptysis. She presented to the Emergency Room, where she has been assessed and admitted to the hospital for the medical management acute exacerbation of COPD. REVIEW OF SYSTEMS: CONSTITUTIONAL: Fatigue and tiredness reported. No symptoms of fever or chills. EYES: Denies any burning, redness, tenderness. EARS, NOSE, THROAT SYMPTOMS: Denies sore throat, hoarseness, otalgia, postnasal drainage. CARDIOVASCULAR: Denies angina pain, edema, pain in lower extremities. GASTROINTESTINAL: The patient denies dysphagia, nausea, vomiting, diarrhea, abdominal pain, hematemesis, melena, or hematochezia. GENITOURINARY: No dysuria, suprapubic pain, hematuria. MUSCULOSKELETAL: The patient was noted without any pain or deformities. SKIN: Dnies lesions or rashes. CENTRAL NERVOUS SYSTEM: No dizziness, headache, diplopia, syncopal episodes. Remaining systems were reviewed with the patient, they were noted all negative. PAST MEDICAL HISTORY: 1. The patient was known with history of end-stage COPD. 2. Chronic hypoxic respiratory failure. 3. Common variable hypogammaglobulinemia. 4. Gastroesophageal reflux disease. 5. Severe generalized anxiety disorder. 6. Vitamin D deficiency. 7. Essential hypertension. PAST SURGICAL HISTORY: 1. Surgery of the paranasal sinuses. 2. . 3. Therapeutic bronchoscopies. SOCIAL HISTORY: The patient is currently disabled from his job, has been noted [place], [place] REPORT OF CONSULTATION NAME: PETE PASCUAL UNIT #: [id number] ROOM: [facility] DOCTOR: POOJA VALDEZ MD,[facility] BIRTHDATE: [birth year] with tobacco use, started at the age of [age] years old, about half to a pack of cigarettes per day, discontinued in 06/2017 completely. No history of alcohol use or any illicit drug use. FAMILY HISTORY: The patient's father at age 65 of complication of COPD. Mother at age of 7979 years old, complication related to the acute pneumonia and other complications. HOME MEDICATIONS: Administered the patient was noted as use of Mucinex 1200 mg p.o. b.i.d., DuoNeb q. 4 hours p.r.n., vitamin D, Norvasc, multivitamin, sinusitis, loratadine, Lovenox for DVT prophylaxis, IV Solu-Medrol 60 mg q. 8 hours, Singulair, Flonase, nicotine replacement patches, IV meropenem, and vancomycin. DRUG ALLERGY HISTORY: THE PATIENT WAS NOTED : 1. SULFA DRUGS. 2. DEXAMETHASONE. 3. NASONEX. 4. CLINDAMYCIN. 5. SULFA DRUG. 6. ZITHROMAX. 7. AMOXICILLIN. 8. ENALAPRIL. 9. FORMOTEROL. PHYSICAL EXAMINATION: GENERAL: A 52-year-old female who has been currently sitting on the bed without any acute distress at the present time of assessment. VITAL SIGNS: The patient shows a normal temperature, respiratory rate 18-20, heart rate of 98, blood pressure 181/62-127/64. Pulse oxygen saturation of the patient was noted as 100% on 2 liter nasal cannula. HEENT: Examination shows head was atraumatic. Eyes nonicterus. NECK: Supple. CARDIOVASCULAR: S1, S2 audible. LUNGS: The patient was noted with moderate decreased breath sounds with expiratory wheezing without any crackles. ABDOMEN: Soft, flat, nontender. EXTREMITIES: Without any acute edema. MUSCULOSKELETAL: Without any acute deformities. SKIN: No lesions or rashes. GENITOURINARY: The patient was noted intact. LABORATORY DATA: The lactic acid noted normal yesterday on admission. CBC yesterday noted normal CBC. The PT, PTT, noted normal yesterday. CMP of yesterday, glucose 152, BUN and creatinine were normal. CBC of the patient this morning remains normal. BMP this morning was noted, glucose 118, BUN and creatinine were normal. CO2 of 33. Chest x-ray of the patient does not show any acute pulmonary infiltration. MediPort noted in place. CT of the chest was ordered yesterday that was personally reviewed shows no acute pulmonary infiltration. [place], [place] REPORT OF CONSULTATION NAME: PETE PASCUAL UNIT #: [id number] ROOM: 408 DOCTOR: LUMA HER MD BIRTHDATE: [birth year] IMPRESSION: 1. The patient has been currently admitted to the hospital with recurrence of chronic obstructive pulmonary disease and acute bronchitis. 2. The patient with chronic respiratory failure and use of corticosteroids as well. The patient has been taking prednisone 10 mg daily for the patient on a daily basis, insert attacks with a past history of chronic steroid use. 3. The patient has history of allergic rhinitis. 4. Common variable hypercapnic hypogammaglobulinemia, which has been treated for this patient at this time with immunoglobulins with significant reduction of the infections. PLAN OF TREATMENT: To reduce the Solu-Medrol. The patient 40 mg b.i.d. dosing. The patient noted very broad spectrum intravenous antibiotic, which would be all discontinued and the patient will be started on doxycycline for the patient orally at the present time, should suffice. The culture of the sputum for the patient will be done in case if the patient expectorates sputum. Bronchodilator for p.r.n. will be changed to every 4 hours, use. Supportive plan of therapy and other care, plan of management. LUMA PATTON MD CM:CONSTR:REPORT OF CONSULTATION 1248 11/25/17 1712 interface
--- NOTE | ~2017-11-24 | PR ---
[place], [place] PROGRESS NOTE NAME: PETE PASCUAL [facility] #: [id number] UNIT #: [id number] ROOM: 408 DOCTOR: POOJA VALDEZ MD,LUMA BIRTHDATE: [birth year] DOS: 11/26/2017 SUBJECTIVE: She has not been noted in any acute respiratory complaints. At the present time, complaining that after she takes the inhalers, she feels like something is sticking in her throat. Shortness of breath has been improving. The cough has been noted minimal. Denies symptoms of chest pain or abdominal pain. She was started on doxycycline yesterday and also ordered Benadryl to take along with to prevent any symptoms of rash which was previously described by the patient. OBJECTIVE: VITAL SIGNS: Normal temperature, respiratory rate 18, heart rate 100, blood pressure 133/80. The pulse oxygen saturation on 3 liters is 99% saturation. HEENT: Showed no acute change. NECK: Supple. CARDIOVASCULAR: S1, S2 audible. LUNGS: Noted mild to moderate decreased bilaterally. ABDOMEN: Soft, nontender. EXTREMITIES: Without any acute edema. SKIN: No lesions or rashes. IMPRESSION: The patient with gradual resolution of acute exacerbation of chronic obstructive pulmonary disease, acute bronchitis, generalized anxiety disorder, allergic rhinitis. PLAN OF TREATMENT: No change in treatment at this time will be necessary. Continuation of the current plan of therapy including corticosteroids. Monitor respiratory symptom prior to consideration for home discharge depends on further stability would be considered. LUMA PATTON MD CM:PNTRANS 0926 1425 LUMA VALDEZ MD 12/07/17 0823 interface
--- NOTE | ~2017-11-24 | PR ---
[place], [place] PROGRESS NOTE NAME: PETE PASCUAL [facility] #: [id number] UNIT #: [id number] ROOM: 408 DOCTOR: POOJA VALDEZ MD,LUMA BIRTHDATE: [birth year] DOS: 11/27/2017 SUBJECTIVE: The patient noted comfortable at this time stating that she has been noted shortness of breath last night. She refused to take the doxycycline, taking that may be causing some allergies. She has not been noted symptoms of hemoptysis. There was no chest pain. Does not have any rashes on the skin. OBJECTIVE: VITAL SIGNS: For the patient which were recorded this morning as a normal temperature, respiratory rate 18, heart rate 109-123, intermittent tachycardia, which was sinus. Blood pressure 132/77 to 132/83. Pulse oxygen saturation on 2 liters nasal cannula 97% saturation recorded. HEENT: Head was atraumatic. Eyes nonicterus. NECK: Supple. CARDIOVASCULAR: S1, S2 audible. LUNG: Without the lung with S1, S2 is audible. No added sounds. LUNGS: Noted with mild expiratory wheezing with moderate decreased breath sounds bilaterally. ABDOMEN: Soft, nontender. EXTREMITIES: Without any acute edema. IMPRESSION: Acute exacerbation of chronic obstructive pulmonary disease noted at the present time. Possible allergy to the doxycycline as well reported by the patient. PLAN OF MANAGEMENT: We will increase the Solu-Medrol 40 mg q. 8 hours with monitoring of the respiratory status in the next 24 hours. Other previous therapy and plan of management and care. Additional treatment changes to be done based on the progression of the illness. The patient would not require any antibiotic. There was no suspicion of acute bronchitis or any evidence of pneumonia. LUMA PATTON MD CM:PNTRANS [phone] LUMA VALDEZ MD 11/27/171958 interface
--- NOTE | ~2017-11-24 | PR ---
[place], [place] PROGRESS NOTE [id number] #: [id number] ROOM: 408 DOCTOR: POOJA VALDEZ MD,LUMA BIRTHDATE: [birth year] DOS: 11/30/2017 SUBJECTIVE: She has been feeling better this morning. Denies any coughing, sputum expectoration, irritation in the throat. Shortness of breath improving. There were no symptoms of chest pain or wheezing. Cough has been noted, none. OBJECTIVE: VITAL SIGNS: Shows normal temperature this morning, respiratory rate 16, heart rate 90, blood pressure 116/71. The pulse oxygen saturation 3 liters nasal cannula 96% saturation. HEENT: No new change. NECK: Supple. CARDIOVASCULAR: S1, S2 is audible. LUNGS: Without any wheezing or crackles. Breaths are noted mild to moderate decreased bilaterally. ABDOMEN: Soft, nontender. IMPRESSION: 1. The patient with resolving acute exacerbation of chronic obstructive pulmonary disease with current medical management. 2. Common variable hypogammaglobulinemia. PLAN OF TREATMENT: The patient would be considered for home discharge this morning. Outpatient followup, patient suggested after discharge tapering dose of prednisone to be started on tapering dose of prednisone upon discharge. LUMA PATTON MD CM:PNTRANS [id number] LUMA VALDEZ MD 11/30/17 1413 interface
[~2017-11-24 15:16] MED LIST changes: -PREDNISONE10 M1 PO
[2017-11-24 15:21] VITALS: BP 127/66
[2017-11-24 15:49] VITALS: BP 129/72
[2017-11-24 15:55] LABS: BASO % 0.2 % (0.0-1.0); HEMOGLOBIN 13.3 g/dl (12.0-16.0); LYMPH # 0.5 10*3/uL (1.3-4.4); LYMPH % 7.6 % (27.0-41.0); MEAN CELL VOLUME 90.5 fl (81.0-99.0); MEAN CORPUSCULAR HGB 29.4 pg (27.0-31.0); MEAN CORPUSCULAR HGB CONC 32.4 g/dl (33.0-37.0); MEAN PLATELET VOLUME 10.2 fl (9.6-12.3); MONO # 0.2 10*3/uL (0.1-1.0); MONO % 3.2 % (3.0-9.0); NEUT # 5.5 10*3/uL (2.3-7.9); NEUT % 88.4 % (47.0-73.0); PLATELET COUNT AUTOMATED 201 10*3/uL (130-400); RED BLOOD COUNT 4.53 10*6/uL (4.10-5.10); RED CELL DISTRI WIDTH 13.5 % (0-14.5); WHITE BLOOD COUNT 6.2 10*3/uL (4.8-10.8)
[2017-11-24 16:01] VITALS: BP 134/80
[2017-11-24 16:04] LABS: ACT PARTIAL THROMBO TIME 24.9 SECONDS (20.8-31.5)
[2017-11-24 16:12] LABS: ALBUMIN 3.4 gm/dl (3.1-4.5); ALKALINE PHOSPHATASE 54 U/L (45-117); BUN 10 mg/dl (7-24); CHLORIDE 98 mmol/L (98-107); CREATININE 0.78 mg/dL (0.55-1.02); POTASSIUM 3.6 mmol/L (3.5-5.1); SGOT/AST 15 IU/L (3-35); SGPT/ALT 23 U/L (12-78); SODIUM 137 mmol/L (136-145); TOTAL PROTEIN 7.4 gm/dL (6.4-8.2)
[2017-11-24 16:13] LABS: TROPONIN I < 0.015 ng/ml (<0.045)
[2017-11-24 16:15] VITALS: BP 142/58
[2017-11-24] MEDS ORDERED: LEVOFLOXACIN500 MG PO (17:07)
[2017-11-24 20:00] VITALS: BP 139/74
[2017-11-25] VITALS: BP 125/73
[2017-11-25 04:00] VITALS: BP 129/79
[2017-11-25 06:43] LABS: BASO % 0.1 % (0.0-1.0); HEMATOCRIT 37.4 % (37.0-47.0); HEMOGLOBIN 12.4 g/dl (12.0-16.0); LYMPH # 0.6 10*3/uL (1.3-4.4); LYMPH % 7.1 % (27.0-41.0); MEAN CELL VOLUME 89.7 fl (81.0-99.0); MEAN CORPUSCULAR HGB 29.7 pg (27.0-31.0); MEAN CORPUSCULAR HGB CONC 33.2 g/dl (33.0-37.0); MEAN PLATELET VOLUME 10.2 fl (9.6-12.3); MONO # 0.3 10*3/uL (0.1-1.0); MONO % 3.7 % (3.0-9.0); NEUT # 7.3 10*3/uL (2.3-7.9); NEUT % 88.5 % (47.0-73.0); PLATELET COUNT AUTOMATED 196 10*3/uL (130-400); RED BLOOD COUNT 4.17 10*6/uL (4.10-5.10); RED CELL DISTRI WIDTH 13.4 % (0-14.5); WHITE BLOOD COUNT 8.2 10*3/uL (4.8-10.8)
[2017-11-25 07:10] LABS: BUN 15 mg/dl (7-24); CHLORIDE 100 mmol/L (98-107); CREATININE 0.64 mg/dL (0.55-1.02); PHOSPHOROUS 4.7 mg/dL (2.5-4.9); POTASSIUM 4.2 mmol/L (3.5-5.1); SODIUM 139 mmol/L (136-145)
[2017-11-25 07:18] LABS: THYROID STIM HORMONE (HS) 0.289 uIU/ml (0.358-4.75)
[2017-11-25 08:00] VITALS: BP 127/64
[2017-11-25 12:00] VITALS: BP 110/62
[2017-11-25 16:00] VITALS: BP 134/85; BP 141/77
[2017-11-25 20:00] VITALS: BP 118/73
[2017-11-26] VITALS: BP 107/73
[2017-11-26 06:26] LABS: FREE T4 0.74 ng/dl (0.76-1.46); THYROXINE (T4) TOTAL 3.9 ug/dl (4.8-13.9)
[2017-11-26 06:32] LABS: THYROID STIM HORMONE (HS) 0.565 uIU/ml (0.358-4.75)
[2017-11-26 08:00] VITALS: BP 133/80
[2017-11-26 12:00] VITALS: BP 115/69
[2017-11-26 16:00] VITALS: BP 128/80
[2017-11-26 16:15] VITALS: BP 127/58
[2017-11-26 20:00] VITALS: BP 118/83
[2017-11-27] VITALS: BP 135/79
[2017-11-27 08:00] VITALS: BP 132/83
[2017-11-27 12:00] VITALS: BP 132/77
[2017-11-27 16:00] VITALS: BP 134/60
[2017-11-27 20:00] VITALS: BP 136/79
[2017-11-28] VITALS: BP 125/83
[2017-11-28 06:15] LABS: BASO % 0.1 % (0.0-1.0); HEMOGLOBIN 12.3 g/dl (12.0-16.0); LYMPH % 9.3 % (27.0-41.0); MEAN CELL VOLUME 91.1 fl (81.0-99.0); MEAN CORPUSCULAR HGB 29.5 pg (27.0-31.0); MEAN CORPUSCULAR HGB CONC 32.4 g/dl (33.0-37.0); MEAN PLATELET VOLUME 10.2 fl (9.6-12.3); MONO # 0.7 10*3/uL (0.1-1.0); MONO % 6.2 % (3.0-9.0); NEUT % 83.8 % (47.0-73.0); PLATELET COUNT AUTOMATED 204 10*3/uL (130-400); RED BLOOD COUNT 4.17 10*6/uL (4.10-5.10); RED CELL DISTRI WIDTH 13.3 % (0-14.5); WHITE BLOOD COUNT 10.7 10*3/uL (4.8-10.8)
[2017-11-28 06:49] LABS: BUN 17 mg/dl (7-24); CREATININE 0.55 mg/dL (0.55-1.02)
[2017-11-28 08:00] VITALS: BP 128/80
[2017-11-28 12:00] VITALS: BP 128/80
[2017-11-28 16:00] VITALS: BP 124/80
[2017-11-28 20:00] VITALS: BP 138/85
[2017-11-29] VITALS: BP 133/79
[2017-11-29 08:00] VITALS: BP 124/76
[2017-11-29 12:00] VITALS: BP 142/92
[2017-11-29 16:00] VITALS: BP 121/78
[2017-11-29 20:00] VITALS: BP 142/83
[2017-11-30] VITALS: BP 135/84
[2017-11-30 08:00] VITALS: BP 116/71
[2017-11-30] MEDS ORDERED: PREDNISONE10 MG PO (10:22)
[2017-11-30] MEDS ORDERED: FLONASE ALLERG9.9 ML NAS (10:22)
== END 2017-11-30 12:17 | disposition home or self-care (01) | DRG 190 ==
LOC: ED 15:16 → EDHOLD 15:35 → 4E 15:35
PROVIDERS: Emergency Medicine; Internal Medicine; Student in an Organized Health Care Education/Training Program
DX: J44.0 Chronic obstructive pulmonary disease with (acute) lower respiratory infection (principal); J18.9 Pneumonia, unspecified organism; D84.9 Immunodeficiency, unspecified; J96.11 Chronic respiratory failure with hypoxia; B37.0 Candidal stomatitis; D80.1 Nonfamilial hypogammaglobulinemia; J44.1 Chronic obstructive pulmonary disease with (acute) exacerbation; K21.9 Gastro-esophageal reflux disease without esophagitis; I70.90 Unspecified atherosclerosis; J20.9 Acute bronchitis, unspecified; J30.9 Allergic rhinitis, unspecified; R73.9 Hyperglycemia, unspecified; I10 Essential (primary) hypertension; E55.9 Vitamin D deficiency, unspecified; F41.1 Generalized anxiety disorder; F17.210 Nicotine dependence, cigarettes, uncomplicated; Z88.2 Allergy status to sulfonamides; Z88.8 Allergy status to other drugs, medicaments and biological substances; Z99.81 Dependence on supplemental oxygen; Z78.9 Other specified health status; Z71.6 Tobacco abuse counseling; Z79.899 Other long term (current) drug therapy; Z82.49 Family history of ischemic heart disease and other diseases of the circulatory system; Z83.3 Family history of diabetes mellitus; Z83.6 Family history of other diseases of the respiratory system; Z83.79 Family history of other diseases of the digestive system

== ENCOUNTER 2017-12-31 17:09 | Emergency (ER) | payer OTHER ==
[~2017-12-31] VITALS: Wt 56.7 kg
[~2017-12-31 17:09] MED LIST changes: +DALIRESP250 MCG PO; +FLONASE ALLERG9.9 ML NAS
[2017-12-31 17:10] VITALS: BP 167/90
[2017-12-31] MEDS ORDERED: VIBRAMYCIN100 MG PO (18:11)
== END 2017-12-31 18:38 | disposition home or self-care (01) ==
LOC: ED 17:09
DX: S10.96XA Insect bite of unspecified part of neck, initial encounter (principal); F17.200 Nicotine dependence, unspecified, uncomplicated; Z79.899 Other long term (current) drug therapy; Z88.1 Allergy status to other antibiotic agents; Z88.2 Allergy status to sulfonamides; Z88.8 Allergy status to other drugs, medicaments and biological substances; W57.XXXA Bitten or stung by nonvenomous insect and other nonvenomous arthropods, initial encounter; Y93.89 Activity, other specified; Y92.89 Other specified places as the place of occurrence of the external cause; Y99.8 Other external cause status

== ENCOUNTER 2018-01-15 19:02 | Emergency (ER) | payer OTHER ==
[~2018-01-15] VITALS: Ht 160 cm; Wt 56.7 kg
[~2018-01-15 19:02] MED LIST changes: +VIBRAMYCIN100 MG PO
[2018-01-15 19:05] VITALS: BP 127/90
[2018-01-15 19:35] LABS: BILIRUBIN NEGATIVE (NEGATIVE); BLOOD TRACE-INTACT (NEGATIVE); CLARITY CLEAR (CLEAR); COLOR YELLOW (YELLOW); GLUCOSE NEGATIVE (NEGATIVE); KETONE NEGATIVE (NEGATIVE); LEUKO ESTERASE 1+ (NEGATIVE); NITRITE NEGATIVE (NEGATIVE); PH 6.5 (5.0-9.0); UROBILINOGEN 0.2 E.U./dl (0.2-1.0)
[2018-01-15 20:18] LABS: BACTERIA TRACE; EPITHELIAL CELLS 45-50; WBC 21-30 wbc/hpf (0-5)
[2018-01-15] MEDS ORDERED: MACROBID100 M1 PO (20:24)
== END 2018-01-15 20:22 | disposition home or self-care (01) ==
LOC: ED 19:02
PROVIDERS: Emergency Medicine
DX: N39.0 Urinary tract infection, site not specified (principal); R31.9 Hematuria, unspecified; F17.200 Nicotine dependence, unspecified, uncomplicated; J44.9 Chronic obstructive pulmonary disease, unspecified; K21.9 Gastro-esophageal reflux disease without esophagitis; I10 Essential (primary) hypertension; Z79.899 Other long term (current) drug therapy; Z88.2 Allergy status to sulfonamides; Z98.890 Other specified postprocedural states; Z88.6 Allergy status to analgesic agent; Z88.1 Allergy status to other antibiotic agents

== ENCOUNTER 2018-01-29 10:52 | Emergency (ER) | payer OTHER ==
[~2018-01-29] VITALS: Wt 56.7 kg
[~2018-01-29 10:52] MED LIST changes: +DALI500T PO; -DALIRESP250 MCG PO; +MACROBID100 M1 PO
[2018-01-29 11:29] LABS: BASO # 0.1 10*3/uL (0.0-0.1); BASO % 0.3 % (0.0-1.0); EOS % 0.2 % (1.0-4.0); HEMOGLOBIN 13.5 g/dl (12.0-16.0); LYMPH # 1.1 10*3/uL (1.3-4.4); LYMPH % 7.1 % (27.0-41.0); MEAN CELL VOLUME 89.9 fl (81.0-99.0); MEAN CORPUSCULAR HGB 28.9 pg (27.0-31.0); MEAN CORPUSCULAR HGB CONC 32.1 g/dl (33.0-37.0); MEAN PLATELET VOLUME 10.4 fl (9.6-12.3); MONO # 0.4 10*3/uL (0.1-1.0); MONO % 2.5 % (3.0-9.0); NEUT # 13.9 10*3/uL (2.3-7.9); NEUT % 89.5 % (47.0-73.0); PLATELET COUNT AUTOMATED 269 10*3/uL (130-400); RED BLOOD COUNT 4.67 10*6/uL (4.10-5.10); RED CELL DISTRI WIDTH 13.2 % (0-14.5); WHITE BLOOD COUNT 15.5 10*3/uL (4.8-10.8)
[2018-01-29 11:40] LABS: ACT PARTIAL THROMBO TIME 21.5 SECONDS (20.8-31.5); INTERNATIONAL NORM RATIO 0.9 (2.0-3.5)
[2018-01-29 11:46] LABS: BILIRUBIN NEGATIVE (NEGATIVE); BLOOD TRACE-INTACT (NEGATIVE); CLARITY CLEAR (CLEAR); COLOR YELLOW (YELLOW); GLUCOSE NEGATIVE (NEGATIVE); KETONE NEGATIVE (NEGATIVE); LEUKO ESTERASE 1+ (NEGATIVE); NITRITE NEGATIVE (NEGATIVE); SPECIFIC GRAVITY <= 1.005 (1.005-1.030); UROBILINOGEN 0.2 E.U./dl (0.2-1.0)
[2018-01-29 11:49] LABS: ALBUMIN 3.7 gm/dl (3.1-4.5); ALKALINE PHOSPHATASE 65 U/L (45-117); BUN 10 mg/dl (7-24); CHLORIDE 100 mmol/L (98-107); LIPASE 126 U/L (73-393); POTASSIUM 3.3 mmol/L (3.5-5.1); SGOT/AST 18 IU/L (3-35); SGPT/ALT 36 U/L (12-78); SODIUM 140 mmol/L (136-145); TOTAL PROTEIN 7.3 gm/dL (6.4-8.2); TROPONIN I < 0.015 ng/ml (<0.045)
[2018-01-29 12:37] LABS: BACTERIA 1+
[2018-01-29 13:01] VITALS: BP 129/92
[2018-01-29] MEDS ORDERED: LEVAQUIN750 M1 PO (14:08)
[2018-01-29] MEDS ORDERED: PREDNISONE10 MG PO (14:08)
[2018-01-30] MEDS ORDERED: ZYRTEC10 MG PO (21:04)
== END 2018-01-29 14:26 | disposition left against medical advice (07) ==
LOC: ED 10:52
PROVIDERS: Emergency Medicine
DX: A41.9 Sepsis, unspecified organism (principal); N39.0 Urinary tract infection, site not specified; J18.9 Pneumonia, unspecified organism; R31.9 Hematuria, unspecified; J44.9 Chronic obstructive pulmonary disease, unspecified; I10 Essential (primary) hypertension; K21.9 Gastro-esophageal reflux disease without esophagitis; F17.200 Nicotine dependence, unspecified, uncomplicated; Z88.1 Allergy status to other antibiotic agents; Z88.2 Allergy status to sulfonamides; Z88.8 Allergy status to other drugs, medicaments and biological substances; Z79.899 Other long term (current) drug therapy

== ENCOUNTER 2018-01-30 17:13 | Inpatient (IN) | payer OTHER ==
[2018-01-30] VITALS (7 sets, daily range): BP systolic 130–195; BP diastolic 75–102
[~2018-01-30] VITALS: Ht 160 cm; Wt 56.8 kg
--- NOTE | ~2018-01-30 | PR ---
[place], [place] PROGRESS NOTE NAME: PETE PASCUAL [facility] #: [id number] UNIT #: [id number] ROOM: 506 DOCTOR: POOJA VALDEZ MD,LUMA BIRTHDATE: [birth year] DOS: 02/03/2018 SUBJECTIVE: The patient was seen and examined, comfortably resting on the bed at this time. Shortness of breath has been noted partially decreased. She was complaining of some dizziness and was started on the Antivert for the vertigo. She denies symptoms of chest pain. The cough has been noted mild without any sputum expectoration. The patient denies symptoms of nausea. OBJECTIVE: VITAL SIGNS: For the patient which were recorded showed the temperature noted as normal. Temperature remains normal, respiratory rate 18, heart rate of 99, blood pressure 136/84. The pulse oxygen saturation of the patient 4 liters nasal cannula 95% saturation. HEENT: Head was atraumatic. Eyes nonicterus. NECK: Supple. CARDIOVASCULAR: S1, S2 audible. LUNGS: Noted with moderate decreased breath sounds with wiwd-ld-hlfgbuto expiratory wheezing. There were no crackles. ABDOMEN: Soft and nontender. EXTREMITIES: Without any acute edema. LABORATORY DATA: CBC: Normal WBC count and platelet count, hemoglobin 11.4. BMP of the patient, BUN normal, creatinine normal. CO2 of 36. IMPRESSION: Very slow resolution improvement in acute exacerbation of chronic obstructive pulmonary disease were noted at the present time with current plan of management. Vertigo for this patient was assessed by the primary care attending, started on Antivert. PLAN OF MANAGEMENT: Reduce Solu-Medrol 60 mg b.i.d. from every 8 hours. Continue other plan of management with bronchodilators, oxygen supplementation and additional treatments. LUMA PATTON MD CM:PNTRANS [phone] LUMA VALDEZ MD 02/12/18 0746 interface
--- NOTE | ~2018-01-30 | PR ---
[place], [place] PROGRESS NOTE [id number] UNIT #: [id number] ROOM: 506 DOCTOR: LUMA HER MD BIRTHDATE: [birth year] DOS: 02/01/2018 SUBJECTIVE: The patient was noted comfortable at this time without any acute distress. She has been noted reduction in symptoms of shortness of breath from yesterday. Denies symptoms of chest pain or hemoptysis. The patient has symptom of abdominal pain. She has a CTA of the chest that was done yesterday was completed, does not show any acute pulmonary infiltration. OBJECTIVE: VITAL SIGNS: Which were recorded showed normal temperature, respiratory rate 20, heart rate 110, blood pressure 115/78-124/75. Pulse oxygen saturation of the patient was noted as 97% on 4 liter nasal cannula. HEENT: Examination shows head was atraumatic. Eyes nonicterus. NECK: Supple. CARDIOVASCULAR: S1, S2 is audible. LUNGS: Noted general reduction in breath sounds bilaterally. Expiratory wheezing was present, which was noted over reduced in intensity. Air entry of the patient was noted to be better yesterday as well. ABDOMEN: Soft, nontender. EXTREMITIES: Without any acute edema. LABORATORY DATA: CBC of the patient this morning noted WBC count 16.2, hemoglobin 11, platelet count was normal. BMP of the patient was noted with normal BUN and creatinine. IMPRESSION: The patient with stable respiratory status with acute exacerbation of chronic obstructive pulmonary disease, oyxrc-mn-hfqsibp hypoxic respiratory failure and tachycardia resulting from the acute exacerbation of chronic obstructive pulmonary disease, resolving. PLAN OF MANAGEMENT: 1. Continue current dose of corticosteroids. 2. Reduction will be started based on the further improvement in respiratory status. Other supportive therapy, plan of management, care plan and treatments. [place], [place] PROGRESS NOTE NAME: PETE PASCUAL UNIT #: [id number] ROOM: 506 DOCTOR: LUMA HER MD BIRTHDATE: [birth year] LUMA PATTON MD CM:PNTRANS [id number] LUMA VALDEZ MD 02/25/18 0658 interface
--- NOTE | ~2018-01-30 | PR ---
[place], [place] PROGRESS NOTE [id number] UN[facility] #: [id number] ROOM: 506 DOCTOR: POOJA VALDEZ MD,LUMA BIRTHDATE: [birth year] DOS: 02/02/2018 PULMONARY PROGRESS NOTE SUBJECTIVE: The patient has been noted comfortable at this time, resting at side of the bed. She still noted symptoms of shortness of breath. She stated shortness of breath occurs with exertion and walking from the bed to the bathroom. The shortness of breath has been noted partially decreased. There were no symptoms of excessive coughing or wheezing reported today. PHYSICAL EXAMINATION: VITAL SIGNS: Vital signs for the patient showed normal temperature, respiratory rate 18, heart rate 94, and blood pressure 145/78. Pulse ox saturation on 4 liters nasal cannula is 98% saturation. HEENT: On examination, head was atraumatic. Eyes nonicterus. NECK: Supple. CARDIOVASCULAR: S1, S2 audible. LUNGS: Noted without any wheezing or crackles. ABDOMEN: Soft, nontender. EXTREMITIES: Without any acute edema. IMPRESSION: 1. The patient with ongoing acute exacerbation of chronic obstructive pulmonary disease, reduction of the wheezing and decreased air entry of the lung was still noted. Resolving tachycardia with improving chronic obstructive pulmonary disease exacerbation. PLAN OF MANAGEMENT: No changes in the plan at this time. Continue the patient's current therapy as previously in progress with corticosteroids, bronchodilators, and oxygen supplementation. Reduction of the steroids might be considered tomorrow morning depends on further improvement in the respiratory status. LUMA PATTON MD CM:PNTRANS [id number] LUMA VALDEZ MD 02/02/18 2305 interface
--- NOTE | ~2018-01-30 | PR ---
[place], [place] PROGRESS NOTE NAME: PETE PASCUAL [facility] #: [id number] UNIT #: [id number] ROOM: 506 DOCTOR: POOJA VALDEZ MD,LUMA BIRTHDATE: [birth year] DOS: 02/05/2018 SUBJECTIVE: The patient noted comfortable at this time, resting on the bed, showing continued gradual reduction and improvement in the respiratory symptoms of shortness of breath. Cough has been noted, mild. There were no symptoms of wheezing reported by the patient. OBJECTIVE: VITAL SIGNS: For the patient which has been recorded, showed normal temperature, respiratory rate 18, heart rate 98, blood pressure 124/81. Pulse oxygen saturation on 3 L and 100% saturation. HEENT: Head was atraumatic. Eyes nonicterus. NECK: Supple. CARDIOVASCULAR: S1, S2 audible. LUNGS: The patient noted bjye-xc-ibkfxzuf decreased breath sounds in the lungs bilaterally. ABDOMEN: Soft, nontender. Bowel sounds present. EXTREMITIES: The patient noted without any acute edema. IMPRESSION: The patient with gradual and progressive resolution of the acute exacerbation of chronic obstructive pulmonary disease noted at the present time. Dose of Solu-Medrol will be changed to 30 mg b.i.d. dosing today as well. Other additional treatment changes to be made for the patient with progressive illness, possible consideration of discharge tomorrow morning depends on further improvement in the respiratory symptoms after reduction of corticosteroids. LUMA PATTON MD CM:PNTRANS 1139 1323 LUMA VALDEZ MD 02/05/18 1321 interface
--- NOTE | ~2018-01-30 | PR ---
[place], [place] PROGRESS NOTE NAME: PETE PASCUAL [facility] #: [id number] UNIT #: [id number] ROOM: 506 DOCTOR: POOJA VALDEZ MD,LUMA BIRTHDATE: [birth year] DOS: 02/04/2018 PULMONARY PROGRESS NOTE SUBJECTIVE: The patient is noted comfortable at this time without any acute distress. She has not been noted with any symptoms of chest pain or hemoptysis. Shortness of breath has been noted decreased yesterday. She stated she expectorated a small amount of sputum this morning as well. OBJECTIVE: VITAL SIGNS: Normal temperature, respiratory rate 18, heart rate 94, blood pressure 134/83. The pulse ox saturation on 4 liters nasal cannula is 96% saturation. HEENT: Head was atraumatic. Eyes nonicterus. NECK: Supple. CARDIOVASCULAR: S1, S2 audible. LUNGS: Noted with moderate decreased breath sounds in the lungs bilaterally. ABDOMEN: Soft, nontender. EXTREMITIES: Without any acute edema. IMPRESSION: 1. Resolving acute exacerbation of chronic obstructive pulmonary disease gradually with history of chronic hypoxic respiratory failure. 2. History of common variable hypogammaglobulinemia as well. PLAN OF MANAGEMENT: Continue current therapy, plan of care for the patient at this time. No changes in the treatment to be done. All other supportive therapy, plan of management and treatments. LUMA PATTON MD CM:PNTRANS [phone] LUMA VALDEZ MD 02/04/18 2249 interface
--- NOTE | ~2018-01-30 | PR ---
[place], [place] PROGRESS NOTE NAME: PETE PASCUAL [facility] #: [id number] UNIT #: [id number] ROOM: 506 DOCTOR: POOJA VALDEZ MD,LUMA BIRTHDATE: [birth year] DOS: 02/06/2018 SUBJECTIVE: The patient was seen and examined on 02/06/2018. She has been comfortably resting, sitting on the bed. She has been noted with cough, which have been gradually subsiding. Shortness of breath has been decreasing. There were no symptoms of wheezing. There were symptoms of chest pain. OBJECTIVE: VITAL SIGNS: For the patient, which have recorded less than 4 hours as a normal temperature, respiratory rate 18, heart rate of 98, blood pressure 120/76. The pulse oxygen saturation recorded as 97% saturation on 3 liters cannula. HEENT: No acute change. NECK: Supple. CARDIOVASCULAR: S1, S2 is audible. LUNGS: Noted without any wheezing or crackles at the present time. Breaths are noted mild to moderate decreased bilaterally. ABDOMEN: Soft, nontender. IMPRESSION: Progressive and gradual resolution of the acute exacerbation of chronic obstructive pulmonary disease was noted with acute bronchitis. PLAN OF TREATMENT: No changes in the plan of care at this time. The patient could be considered for home discharge on tapering dose of prednisone, oral antibiotics, and use of the Mucinex. No additional change in the treatment needs to be done at this time. LUMA PATTON MD CM:PNTRANS 1245 1320 LUMA VALDEZ MD 02/06/18 1319 interface
--- NOTE | ~2018-01-30 | EKG ---
[place], [place] ELECTROCARDIOGRAM REPORT NAME: PETE PASCUAL UNIT #: [id number] ROOM: 506 DOCTOR: POOJA VALDEZ MD,LUMA BIRTHDATE: [birth year] DOS: 01/30/2018 Electrocardiogram done on 01/30/2018 at 5:55 p.m. Sinus tachycardia noted, heart rate of 130 beats per minute. Remaining electrocardiogram was noted as normal. LUMA PATTON MD CM:EKGRPT:ELECTROCARDIOGRAM REPORT 1222 1231 LUMA VALDEZ MD
--- NOTE | ~2018-01-30 | CON ---
[place], [place] REPORT OF CONSULTATION NAME: PETE PASCUAL [facility] #: [id number] UNIT #: [id number] ROOM: 506 DOCTOR: LUMA HER MD BIRTHDATE: [birth year] DOS: 01/31/2018 REASON FOR CONSULTATION: Assess the patient for increased shortness of breath. HISTORY OF PRESENT ILLNESS: This is 52-year-old white female patient who has been known to me from the past as noted with advanced COPD end-stage with FEV1 less than 20% with chronic hypoxic respiratory failure and allergic rhinitis. She has been seen in my office over a week ago as the patient complained of shortness of breath and was giving a tapering dose of prednisone and asked to continue his usual prednisone 10 mg daily afterwards. She has taken the medication and stated that the symptoms has been noted gradually worse for the patient last few days with current shortness of breath described with minimal exertion at home. The patient denies symptoms of chest pain or any hemoptysis. She denies symptoms of chest pain. She does have some cough without any sputum expectoration. The patient reported symptoms of tightness in the chest with wheezing. REVIEW OF SYSTEMS: CONSTITUTIONAL: She does complain of symptoms of fatigue and tiredness. No symptoms of fever or chills. EYES: Denies burning, redness or discharge. ENT: Denies sore throat, hoarseness, otalgia, postnasal drainage. CARDIOVASCULAR: No anginal pain, edema, or pain in lower extremities. GASTROINTESTINAL: Dysphagia, nausea, vomiting, diarrhea, abdominal pain, hematemesis, melena, hematochezia. SKIN: No abnormal lesions or rashes. MUSCULOSKELETAL: No acute deformities. CENTRAL NERVOUS SYSTEM: The patient denies symptoms of dizziness, headache, diplopia, syncopal episodes. Remaining systems for the patient were reviewed, they were noted all negative. Past medical history, surgical history, family history: Reviewed since my consultation, which was done for the patient on 11/25/2017 that remains unchanged since then. The document is available in the medical record for any reference to that. MEDICATIONS: Administered were noted use of Singulair, Zyrtec, Daliresp at 250 mcg daily, Ellipta, Norvasc, Lovenox, omeprazole, Solu-Medrol 60 mg q.8h., Flonase, DuoNeb, and IV gammaglobulin for the patient every 1 month infusions. DRUG ALLERGY HISTORY: The patient noted as allergy: 1. SULFA DRUGS. 2. MUCINEX. 3. DECADRON. 4. NASONEX. 5. DOXYCYCLINE. 6. CLINDAMYCIN. 7. AZITHROMYCIN, AMOXICILLIN, BUDESONIDE. 8. ENALAPRIL. [place], [place] REPORT OF CONSULTATION [facility] [id number] UNIT #: [id number] ROOM: [facility] DOCTOR: POOJA VALDEZ MD,[facility] BIRTHDATE: [birth year] 9. [place]. PHYSICAL EXAMINATION: GENERAL: A 52-year-old white female who has been currently sitting on the bed at this time for the assessment without any acute distress, using oxygen supplementation nasal cannula. VITAL SIGNS: Height were recorded by the nursing staff on admission 5 feet 3 inches, weight 125, and BMI 22.2. Vital signs is the normal temperature, respiratory rate 20, heart rate of 128-130, sinus tachycardia, which is chronic intermittently. The blood pressure 151/79 and 140/83. Pulse oxygen saturation on 40% Venturi mask 98% with 3 liters nasal cannula 97% saturation. HEENT: Examination shows head was atraumatic. Eyes nonicterus. NECK: Supple. CARDIOVASCULAR: S1, S2 is audible. LUNGS: The patient was noted general reduction in breath sounds. Diffuse jgsdobpo-yv-gvvary expiratory wheezing bilaterally. ABDOMEN: Soft, nontender and flat. EXTREMITIES: The patient without any acute edema. MUSCULOSKELETAL: Chronic deformities. CENTRAL NERVOUS SYSTEM: Cranial nerves 2-12 intact. No focal deficit. LABORATORY DATA: CMP 529, glucose 145, BUN normal. Creatinine was normal. Potassium 3.3. The PT/INR on for this month was normal. Lactic acid 3.3 yesterday. In the Emergency Room, CBC on 01/30/2018, WBC count 22.9, hemoglobin and hematocrit normal, platelet count normal, neutrophils 85%. The CMP on 01/30/2018, BUN 13, creatinine 1.05. CMP remains normal. CBC on 01/31/2018, WBC count 19.5, hemoglobin and hematocrit normal, platelet count normal. BMP for the patient, glucose 169, BUN normal, creatinine was normal. The blood culture for the patient on 29th of this month in the emergency room so far reported no bacterial growth. The chest x-ray of the patient that was done only one-view showed changes of COPD without any visible acute pulmonary infiltration. MediPort noted in place in the right chest. The chest x-ray was personally assessed on the PACS images. IMPRESSION: 1. The patient who has been currently admitted to the hospital with worsening of the acute exacerbation of chronic obstructive pulmonary disease with failed outpatient treatment with leukocytosis most likely related to current acute severe bronchitis. 2. The patient with history of chronic dependence on the corticosteroids, prednisone 10 mg daily as well. 3. History of allergic rhinitis. 4. History of gastroesophageal reflux and multiple other medical problems known. PLAN OF TREATMENT: Agree with current use of the antibiotics, bronchodilators and corticosteroids that will be continued without any changes. She was already receiving intravenous globulin for common variable hypogammaglobulinemia every monthly basis as an outpatient to boost immune system because of history of common variable hypogammaglobulinemia. She has been noted allergies to the multiple antibiotics, which limit the use of the antibiotic in her case as well. [place], [place] REPORT OF CONSULTATION NAME: PETE PASCUAL UNIT #: [id number] ROOM: 506 DOCTOR: LUMA HER MD BIRTHDATE: [birth year] The oxygen supplementation to be maintained for the pulse ox saturation 90% or greater. Continue other supportive therapy, plan of management and care plan. Additional treatment changes to be done based on the progression of the illness. LUMA PATTON MD CM:CONSTR:REPORT OF CONSULTATION 1206 02/12/18 0744 interface
[~2018-01-30 17:13] MED LIST changes: +LEVAQUIN750 M1 PO
[2018-01-30 17:56] LABS: HEMATOCRIT 43.1 % (37.0-47.0); HEMOGLOBIN 14.1 g/dl (12.0-16.0); MEAN CELL VOLUME 89.2 fl (81.0-99.0); MEAN CORPUSCULAR HGB 29.2 pg (27.0-31.0); MEAN CORPUSCULAR HGB CONC 32.7 g/dl (33.0-37.0); MEAN PLATELET VOLUME 10.7 fl (9.6-12.3); PLATELET COUNT AUTOMATED 343 10*3/uL (130-400); RED BLOOD COUNT 4.83 10*6/uL (4.10-5.10); RED CELL DISTRI WIDTH 13.2 % (0-14.5); WHITE BLOOD COUNT 22.9 10*3/uL (4.8-10.8)
[2018-01-30 18:18] LABS: TOTAL CELLS COUNTED 100 #CELLS
[2018-01-30 18:19] LABS: ALKALINE PHOSPHATASE 69 U/L (45-117); BUN 13 mg/dl (7-24); CHLORIDE 103 mmol/L (98-107); CREATININE 1.05 mg/dL (0.55-1.02); PLATELET SUFFICIENCY NORMAL (NORMAL); POTASSIUM 3.8 mmol/L (3.5-5.1); SGOT/AST 23 IU/L (3-35); SGPT/ALT 52 U/L (12-78); SODIUM 141 mmol/L (136-145); TOTAL PROTEIN 7.8 gm/dL (6.4-8.2)
[2018-01-30 18:28] LABS: TROPONIN I < 0.015 ng/ml (<0.045)
[2018-01-30 19:47] LABS: BILIRUBIN NEGATIVE (NEGATIVE); BLOOD TRACE-INTACT (NEGATIVE); CLARITY SL CLOUDY (CLEAR); COLOR YELLOW (YELLOW); GLUCOSE NEGATIVE (NEGATIVE); KETONE NEGATIVE (NEGATIVE); LEUKO ESTERASE 1+ (NEGATIVE); NITRITE NEGATIVE (NEGATIVE); PH 5.5 (5.0-9.0); SPECIFIC GRAVITY <= 1.005 (1.005-1.030); UROBILINOGEN 0.2 E.U./dl (0.2-1.0)
[2018-01-30 20:04] LABS: BACTERIA 2+; RBC 0-2 rbc/hpf (0-2); WBC 16-20 wbc/hpf (0-5)
[2018-01-30] MEDS ORDERED: ZYRTEC10 MG PO (21:04)
[2018-01-31] VITALS: BP 151/79
[2018-01-31 07:11] LABS: BASO % 0.2 % (0.0-1.0); HEMATOCRIT 41.4 % (37.0-47.0); HEMOGLOBIN 13.1 g/dl (12.0-16.0); LYMPH # 1.6 10*3/uL (1.3-4.4); LYMPH % 8.2 % (27.0-41.0); MEAN CORPUSCULAR HGB 29.1 pg (27.0-31.0); MEAN CORPUSCULAR HGB CONC 31.6 g/dl (33.0-37.0); MEAN PLATELET VOLUME 10.7 fl (9.6-12.3); MONO # 0.6 10*3/uL (0.1-1.0); MONO % 2.9 % (3.0-9.0); NEUT # 17.1 10*3/uL (2.3-7.9); PLATELET COUNT AUTOMATED 337 10*3/uL (130-400); RED CELL DISTRI WIDTH 13.3 % (0-14.5); WHITE BLOOD COUNT 19.5 10*3/uL (4.8-10.8)
[2018-01-31 07:31] LABS: BUN 14 mg/dl (7-24); CHLORIDE 103 mmol/L (98-107); CREATININE 0.81 mg/dL (0.55-1.02); PHOSPHOROUS 4.8 mg/dL (2.5-4.9); SODIUM 142 mmol/L (136-145)
[2018-01-31 08:00] VITALS: BP 140/83
[2018-01-31 12:00] VITALS: BP 142/80
[2018-01-31 16:00] VITALS: BP 143/79
[2018-01-31 20:00] VITALS: BP 126/82
[2018-02-01] VITALS: BP 124/75
[2018-02-01 06:31] LABS: BASO % 0.1 % (0.0-1.0); HEMATOCRIT 34.6 % (37.0-47.0); HEMOGLOBIN 11.1 g/dl (12.0-16.0); LYMPH # 1.2 10*3/uL (1.3-4.4); LYMPH % 7.4 % (27.0-41.0); MEAN CELL VOLUME 92.3 fl (81.0-99.0); MEAN CORPUSCULAR HGB 29.6 pg (27.0-31.0); MEAN CORPUSCULAR HGB CONC 32.1 g/dl (33.0-37.0); MEAN PLATELET VOLUME 10.5 fl (9.6-12.3); MONO # 0.9 10*3/uL (0.1-1.0); MONO % 5.6 % (3.0-9.0); NEUT # 13.9 10*3/uL (2.3-7.9); NEUT % 86.1 % (47.0-73.0); PLATELET COUNT AUTOMATED 234 10*3/uL (130-400); RED BLOOD COUNT 3.75 10*6/uL (4.10-5.10); RED CELL DISTRI WIDTH 13.2 % (0-14.5); WHITE BLOOD COUNT 16.2 10*3/uL (4.8-10.8)
[2018-02-01 07:00] LABS: BUN 16 mg/dl (7-24); CHLORIDE 104 mmol/L (98-107); SODIUM 142 mmol/L (136-145)
[2018-02-01 08:00] VITALS: BP 115/72
[2018-02-01 12:00] VITALS: BP 121/68
[2018-02-01 16:00] VITALS: BP 149/83
[2018-02-01 20:00] VITALS: BP 143/86
[2018-02-02] VITALS: BP 153/77
[2018-02-02 08:00] VITALS: BP 128/87
[2018-02-02 12:00] VITALS: BP 145/78
[2018-02-02 16:00] VITALS: BP 139/80
[2018-02-02 20:00] VITALS: BP 140/80
[2018-02-03 00:04] VITALS: BP 139/78
[2018-02-03 07:33] LABS: BASO % 0.1 % (0.0-1.0); HEMATOCRIT 36.4 % (37.0-47.0); HEMOGLOBIN 11.4 g/dl (12.0-16.0); LYMPH # 0.6 10*3/uL (1.3-4.4); LYMPH % 5.9 % (27.0-41.0); MEAN CELL VOLUME 91.7 fl (81.0-99.0); MEAN CORPUSCULAR HGB 28.7 pg (27.0-31.0); MEAN CORPUSCULAR HGB CONC 31.3 g/dl (33.0-37.0); MEAN PLATELET VOLUME 10.8 fl (9.6-12.3); MONO # 0.7 10*3/uL (0.1-1.0); NEUT # 8.4 10*3/uL (2.3-7.9); NEUT % 85.9 % (47.0-73.0); PLATELET COUNT AUTOMATED 204 10*3/uL (130-400); RED BLOOD COUNT 3.97 10*6/uL (4.10-5.10); RED CELL DISTRI WIDTH 12.8 % (0-14.5); WHITE BLOOD COUNT 9.8 10*3/uL (4.8-10.8)
[2018-02-03 07:50] LABS: BUN 14 mg/dl (7-24); CHLORIDE 101 mmol/L (98-107); CREATININE 0.48 mg/dL (0.55-1.02); POTASSIUM 3.8 mmol/L (3.5-5.1); SODIUM 142 mmol/L (136-145)
[2018-02-03 08:00] VITALS: BP 136/84
[2018-02-03 12:00] VITALS: BP 129/83
[2018-02-03 16:00] VITALS: BP 143/81
[2018-02-03 20:00] VITALS: BP 131/77
[2018-02-04] VITALS: BP 134/83
[2018-02-04 08:00] VITALS: BP 144/75
[2018-02-04 12:00] VITALS: BP 141/79
[2018-02-04 16:00] VITALS: BP 144/84
[2018-02-04 20:00] VITALS: BP 127/74
[2018-02-05 00:23] VITALS: BP 118/82
[2018-02-05 08:00] VITALS: BP 124/81
[2018-02-05 12:00] VITALS: BP 139/86
[2018-02-05 16:00] VITALS: BP 125/75
[2018-02-05 20:01] VITALS: BP 116/75
[2018-02-06 00:11] VITALS: BP 121/80
[2018-02-06 06:52] LABS: BUN 20 mg/dl (7-24); CHLORIDE 101 mmol/L (98-107); CREATININE 0.57 mg/dL (0.55-1.02); POTASSIUM 3.9 mmol/L (3.5-5.1); SODIUM 142 mmol/L (136-145)
[2018-02-06 08:00] VITALS: BP 120/76
[2018-02-06 12:00] VITALS: BP 121/80
[2018-02-06] MEDS ORDERED: ROBITUSSIN DM 101 OZ PO (12:32)
[2018-02-06] MEDS ORDERED: LEVAQUIN500 M2 PO (12:33)
[2018-02-06] MEDS ORDERED: PREDNISONE10 MG PO (12:33)
== END 2018-02-06 14:50 | disposition home health service (06) | DRG 871 ==
LOC: ED 17:13 → 5E 18:42 → EDHOLD 18:42 → 5E 20:04
PROVIDERS: Internal Medicine; Physician Assistant; Student in an Organized Health Care Education/Training Program
DX: A41.9 Sepsis, unspecified organism (principal); J18.9 Pneumonia, unspecified organism; J96.21 Acute and chronic respiratory failure with hypoxia; E87.3 Alkalosis; D84.9 Immunodeficiency, unspecified; D80.1 Nonfamilial hypogammaglobulinemia; E83.41 Hypermagnesemia; J44.0 Chronic obstructive pulmonary disease with (acute) lower respiratory infection; J44.1 Chronic obstructive pulmonary disease with (acute) exacerbation; R65.20 Severe sepsis without septic shock; F17.210 Nicotine dependence, cigarettes, uncomplicated; J20.9 Acute bronchitis, unspecified; K21.9 Gastro-esophageal reflux disease without esophagitis; I70.90 Unspecified atherosclerosis; F41.9 Anxiety disorder, unspecified; R73.9 Hyperglycemia, unspecified; I10 Essential (primary) hypertension; Z71.6 Tobacco abuse counseling; Z99.81 Dependence on supplemental oxygen; Z78.9 Other specified health status; Z88.1 Allergy status to other antibiotic agents; Z88.2 Allergy status to sulfonamides; Z88.8 Allergy status to other drugs, medicaments and biological substances; Z82.49 Family history of ischemic heart disease and other diseases of the circulatory system; Z83.3 Family history of diabetes mellitus; Z82.5 Family history of asthma and other chronic lower respiratory diseases; Z79.899 Other long term (current) drug therapy; Z79.2 Long term (current) use of antibiotics

== ENCOUNTER 2019-01-21 15:18 | Inpatient (IN) | payer OTHER ==
[~2019-01-21 15:18] MED LIST changes: +ARNUITY ELLIP200 MCG PO; +ATENOLOL25 MG PO; +ATIVAN1 MG PO; +ATROVENT HFA12.9 GM PO; +CARTIA XT120 MG PO; +IPRATROPIU0.2 MG/1 M INH; +PREDNISONE20 M1 PO; +PREDNISONE5 MG PO; +ROBITUSSIN DM 101 OZ PO; +SENEXON-S TABL1 EACH PO; +STRIVERDI RESPIM4 GM PO; +TRELEGY ELLIPT1 EACH INH
--- NOTE | 2019-01-21 15:49 | NUR ---
PT [address] FRANCOIS AND SHIFT DIRECTOR NOTIFIED.
--- NOTE | 2019-01-21 16:07 | NUR ---
PER ONE CALL PT IS NOT A CANDIDATE FOR [employer]GAN DONATION. REFERENCE NUMBER [id number]. HOME NOTIFIED. MICHAEL SIMMONS TANK CARPENTER WILL BE HERE TO SUPERVISOR RECEIVING AND PROCESSING PT APPROXIMATELY 1700. NURSING SENIOR ENGINEERING TEAM LEADER NOTIFIED.
--- NOTE | 2019-01-21 17:19 | NUR ---
KEIRY SIMMONS HOME ARRIVED TO REMOVE PTS BODY
== END 2019-01-21 15:49 | disposition expired | DRG 871 ==
LOC: 4E 15:18
PROVIDERS: ADMIT Internal Medicine
DX: A41.9 Sepsis, unspecified organism (principal); J96.01 Acute respiratory failure with hypoxia; J69.0 Pneumonitis due to inhalation of food and vomit; G93.41 Metabolic encephalopathy; E87.2 Acidosis; E87.0 Hyperosmolality and hypernatremia; D80.1 Nonfamilial hypogammaglobulinemia; R79.82 Elevated C-reactive protein (CRP); I70.90 Unspecified atherosclerosis; F41.9 Anxiety disorder, unspecified; R65.20 Severe sepsis without septic shock; J43.9 Emphysema, unspecified; E87.6 Hypokalemia; E83.39 Other disorders of phosphorus metabolism; F17.210 Nicotine dependence, cigarettes, uncomplicated; R74.0 Nonspecific elevation of levels of transaminase and lactic acid dehydrogenase [LDH]; E87.8 Other disorders of electrolyte and fluid balance, not elsewhere classified; K59.00 Constipation, unspecified; K21.9 Gastro-esophageal reflux disease without esophagitis; I10 Essential (primary) hypertension; Z71.6 Tobacco abuse counseling; Z99.81 Dependence on supplemental oxygen; Z83.1 Family history of other infectious and parasitic diseases; Z83.79 Family history of other diseases of the digestive system; Z88.2 Allergy status to sulfonamides; Z88.1 Allergy status to other antibiotic agents; Z88.8 Allergy status to other drugs, medicaments and biological substances; Z79.899 Other long term (current) drug therapy